=== PATIENT | female | born 1950 | race Caucasian/White ===

== ENCOUNTER 2023-11-24 10:08 | Inpatient (IN) | payer OTHER, SELFPAY ==
[2023-11-24] VITALS (9 sets, daily range): BP systolic 156–193; BP diastolic 41–80; PULSE 40–56; RESP 16–18; TEMP 36.8; O2SAT 96–100; BMI 38.5
--- NOTE | ~2023-11-24 | FL_ITS ---
EXAMINATION: XR FLUOROSCOPY WITH IMAGES CLINICAL INFORMATION: Pacemaker placement. COMPARISON: None available. TECHNIQUE: Fluoroscopy Supervised By: Dr. Rishabh Sheriff. Fluoroscopy Time: 9.7 minutes. Cumulative Dose: 146 mGy. DAP: 39.8 Gycm2. Images: 1. FINDINGS: Single image provided demonstrates a 2-lead right chest wall pacemaker with one lead in the right atria, the other at the right ventricular apex. The generator pack is not included. FL/FL guidance in OR IMPRESSION: Fluoroscopy and spot films as described above. Please see Dr. Rishabh Sheriff's procedure note for full details.
--- NOTE | ~2023-11-24 | XR_ITS ---
EXAMINATION: XR CHEST CLINICAL INFORMATION: Post pacemaker placement COMPARISON: 11/24/2023 TECHNIQUE: Frontal view of the chest was obtained. FINDINGS: Since the prior study a right chest wall pacemaker has been placed with a single lead in the right atria and another lead at the right ventricular apex. No pneumothorax. Mild cardiomegaly. No CHF or consolidations. There is some unchanged atelectasis seen in the posterior basal segment of the left lower lobe. XR/XR chest 1V IMPRESSION: No acute intrathoracic disease status post pacemaker placement. No pneumothorax.
--- NOTE | ~2023-11-24 | XR_ITS ---
EXAMINATION: XR CHEST CLINICAL INFORMATION: Pacemaker placement COMPARISON: Chest radiograph from 11/26/2023 TECHNIQUE: Frontal view of the chest was obtained. FINDINGS: Right-sided dual-lead pacer terminating in the right atrium and ventricle. Bilateral low lung volumes. Accentuation of pulmonary vasculature. Right basilar atelectasis. No pneumothorax. Trachea is midline. Cardiac mediastinal silhouette is stable. Aorta demonstrates atherosclerotic calcifications. No large pleural effusion. Osseous structures are intact. Soft tissues are unremarkable. XR/XR chest 1V IMPRESSION: 1. Right-sided dual-lead pacer terminating in the right atrium and ventricle. 2. Bilateral low lung volumes. 3. Accentuation of pulmonary vasculature. 4. Right basilar atelectasis.
--- NOTE | ~2023-11-24 | XR_ITS ---
EXAMINATION: XR CHEST CLINICAL INFORMATION: Palpitations. COMPARISON: None available. TECHNIQUE: Frontal view of the chest was obtained. FINDINGS: The lungs are clear. The cardiomediastinal silhouette is normal in size. There is no pleural effusion or pneumothorax. No acute osseous abnormality. XR/XR chest 1V IMPRESSION: No acute cardiopulmonary findings.
[2023-11-24 10:56] LABS: Anion Gap 11 (12-20); Blood Urea Nitrogen 38 mg/dL (9-16); Calcium 11.6 mg/dL (8.4-10.2); Carbon Dioxide 26 mmol/L (22-29); Chloride 105 mmol/L (96-108); Creatinine Clr Calc Pharmacy 30.2; Estimated Glomerular Filt Rate 30; Glucose Random 72 mg/dL (60-115); Potassium 4.1 mmol/L (3.3-5.1); Sodium 138 mmol/L (135-145)
--- NOTE | 2023-11-24 11:21 | ED.ARRPALP ---
HPI - Arrhythmia/Palpitations General Chief Complaint: Arrhythmia/Palpitations Stated Complaint: Abnormal ekg Time Seen by Provider: 11/24/23 11:16 Source: patient and family Mode of arrival: ambulatory Limitations: no limitations History of Present Illness HPI narrative: 73 yo f hx of obesity, DM II, HTN, HLD, hypothyroidism presenting to the emergency department from PCP for abnormal EKG today. Patient reports she has not been feeling right. She reports she has been having bad palpitations. All day long. And dizziness in the am which improves after a while. She has also been having headaches and a/c sob that is worsened by exertion. Just dont feel like herself lately. PCP also concerned she may have hypercalcemia. Denies recent illness, cp, nausea, vomiting, abd pain, vision changes, weakness Related Data Allergies Allergy/AdvReac Type Severity Reaction Status Date / Time No Known Allergies Allergy Verified 11/24/23 10:53 Review of Systems Review of Systems: Yes all other systems are reviewed and are negative [facility] Past Medical History Attestation statement: The following information was validated with the patient. Source: old records reviewed and nursing notes reviewed Onset Date is defined in the Problem List Problems that require an onset date and time if occurred within 24 hrs of arrival to the ED Aortic Dissection and Rupture; Neurologic impairment; Cardiopulmonary Arrest; Endotracheal Intubation; Insertion or Replacement of Mechanical Circulatory Assist Device Social History Social History Advance Directives: No Advance Directives Information Provided: No Physical Exam Vital Signs: Vital Signs: Last Vital Signs Temp 98.2 F 11/24/23 10:45 Pulse 53 11/24/23 11:03 Resp 18 11/24/23 11:03 BP 156/80 H 11/24/23 11:03 Pulse Ox 99 11/24/23 11:03 O2 Del Method Room Air 11/24/23 11:03 BMI result Body Mass Index 38.5 bradycardia Appearance: Alert.? Oriented X3.? No acute distress.? Head: Normocephalic, atraumatic, no step-offs or deformities Eyes: Pupils equal, round and reactive to light.? CVS: Normal heart rate and rhythm.? Pulses normal.? Respiratory: No respiratory distress.? Breath sounds normal.? Abdomen: Soft and nontender.? Skin: Skin warm and dry.? Normal skin color.? Normal skin turgor.? Extremities: No lower extremity edema.? No calf ttp. 5/5 strength to bilateral upper and lower extremities Neuro: Oriented X 3.? No motor deficit.? No sensory deficit. CN 2-12 intact Course Reevaluation(s) Reevaluation #1: CBC unremarkable. Chemistry w/ jerome will gently hydrate. Calcium 11.6 and elevated. Fluids ordered. Trop 13.6 repeat pending, EKG non ischemic . Dimer negative. HR dipped down to 33 bpm cardiology aware. Patient does take metoprolol. Cardiology would like patient admitted overnight. No further recommendations. Plan hospital admisssion Time: 13:37 Medical Decision Making Medical Decision Making [facility] Narrative: 1208 73 year old female presents w/ abnormal EKG from PCP PE sinus bradycardia noted HR 44 Concerns for dysrhythmia versus PE. At this time this is stable bradycardia asymptomatic. Will continue to monitor. She does have pads on her. Will rule out metabolic derangements. Unlikely stroke, posterior stroke. Plan- labs, ekg, Differential Diagnosis Differential Diagnoses: The differential diagnosis associated with the presentation includes Concerns for dysrhythmia versus PE. At this time this is stable bradycardia asymptomatic. Will continue to monitor. She does have pads on her. Will rule out metabolic derangements. Unlikely stroke, posterior stroke. Admission/Observation Consideration of admission/observation: Escalation of care including admission/observation considered Likely Consult Healthcare Provider Management of the patient was discussed with: Candy Catcher (Cardiology ) Lab Data [facility] Lab Attestation statement: I reviewed the patient's lab results. 11/24/23 10:31 11/24/23 10:31 Labs: Lab Results 11/24/23 Range/Units 10:31 WBC 7.0 (4.8-10.8) X10*3/uL RBC 4.17 L (4.20-5.50) X10*6/uL Hgb 13.3 (12.0-16.0) g/dl Hct 40.9 (37.0-47.0) % MCV 98.1 H (80.0-98.0) fL MCH 31.9 (27.0-33.0) pg MCHC 32.5 (31.0-35.0) g/dl RDW 14.1 (11.0-16.0) % Plt Count 186 (160-400) X10*3/uL MPV 11.9 (9.4-12.3) fL Immature Gran % (Auto) 0.1 (0.0-0.4) % Neut % (Auto) 55.0 (45-73) % Lymph % (Auto) 28.8 (20-40) % [place] % (Auto) 10.5 (2-11) % Eos % (Auto) 4.9 H (0-4) % Baso % (Auto) 0.7 (0-2) % Lymph # (Auto) 2.0 (1.2-4.9) X10*3/uL [place] # (Auto) 0.7 (0.1-1.2) X10*3/uL Eos # (Auto) 0.3 (0.0-0.4) X10*3/uL Baso # (Auto) 0.1 (0.0-0.2) X10*3/uL Abs Immat Gran (auto) 0.01 (0.00-0.03) X10*3/uL Absolute Neuts (auto) 3.8 (2.0-8.3) x10*3/uL Absolute Nucleated RBC 0.000 (0.0-0.012) X10*3/uL Nucleated RBC % (auto) 0.0 (0.0-0.2) /100WBC PT 10.4 L (11.1-13.3) SEC INR 0.9 (0.9-1.1) APTT 29.9 (26.0-36.4) SEC D-Dimer High Sensitivty 202 NG/ML Sodium 138 (135-145) mmol/L Potassium 4.1 (3.3-5.1) mmol/L Chloride 105 (96-108) mmol/L Carbon Dioxide 26 (22-29) mmol/L Anion Gap 11 L (12-20) BUN 38 H (9-16) mg/dL Creatinine 1.67 H (0.5-1.4) mg/dL Estim Creat Clear Calc 30.2 Estimated GFR 30 Random Glucose 72 (60-115) mg/dL Calcium 11.6 H (8.4-10.2) mg/dL Troponin I High Sens 13.6 (<3.5-17.0) ng/L Independent Interpretation I performed an independent interpretation of an: EKG (EKG w. sinus bradycardia w/ marked sinnus arruthmia and RBBB) and Plain X-Ray Radiology Impression Discussion of test interpretation with radiology: I have reviewed the radiologist's reading. Chronic Conditions Patient?s care impacted by: Diabetes and Other (HLD) Critical Care Time Critical Care Time Critical Care Time: Yes Total Critical Care Time: 45 Attestation: I attest to this time spent taking care of the patient, obtaining history, physical, reviewing labs, imaging, speaking to my attending, speaking to specialist. Discharge Plan Discharge Clinical Impression: Bradycardia, Palpitations, Dizziness Patient Disposition: Admitted As Inpatient
--- NOTE | 2023-11-24 14:13 | PHA.MEDREC ---
Pharmacy Consult ? Medication Reconciliation Pharmacy has completed the medication reconciliation. spoke with patient to confirm medications. She reports still using humalog despite last fill in 12/2022 per claim history. She also reports a decrease in torsemide to 10mg.
--- NOTE | 2023-11-24 15:09 | P.DS_ITS ---
DS: Providers Provider Date of admission: 11/24/23 15:04 Primary care physician: Sarah Beth Sanford MD Consults: 11/24/23 15:05 Consult to Cardiology Routine Consulting Provider: [facility] Reason for consultation: bradycardia Physical Exam Vital Signs: Vital Signs: Last Vital Signs Temp 98.2 F 11/24/23 10:45 Pulse 44 L 11/24/23 13:45 Resp 18 11/24/23 13:45 BP 179/41 H 11/24/23 13:45 Pulse Ox 100 11/24/23 13:45 O2 Del Method Room Air 11/24/23 13:45 BMI result Body Mass Index 38.5 DS: Data Data Completed and Pending Labs on day of discharge: Laboratory Results - last 24 hr 11/24/23 11/24/23 10:31 13:44 WBC 7.0 RBC 4.17 L Hgb 13.3 Hct 40.9 MCV 98.1 H MCH 31.9 MCHC 32.5 RDW 14.1 Plt Count 186 MPV 11.9 Immature Gran % (Auto) 0.1 Neut % (Auto) 55.0 Lymph % (Auto) 28.8 [place] % (Auto) 10.5 Eos % (Auto) 4.9 H Baso % (Auto) 0.7 Lymph # (Auto) 2.0 [place] # (Auto) 0.7 Eos # (Auto) 0.3 Baso # (Auto) 0.1 Abs Immat Gran (auto) 0.01 Absolute Neuts (auto) 3.8 Absolute Nucleated RBC 0.000 Nucleated RBC % (auto) 0.0 PT 10.4 L INR 0.9 APTT 29.9 D-Dimer High Sensitivty 202 Sodium 138 Potassium 4.1 Chloride 105 Carbon Dioxide 26 Anion Gap 11 L BUN 38 H Creatinine 1.67 H Estim Creat Clear Calc 30.2 Estimated GFR 30 POC Glucose 82 Random Glucose 72 Calcium 11.6 H Troponin I High Sens 13.6 Discharge Plan Discharge Referrals: Sarah Beth Sanford MD [Primary Care Provider] - 1 Week Discharge Medications: No Action atorvastatin 80 mg tablet 80 mg PO DAILY metoprolol succinate 100 mg tablet extended release 24 hr 100 mg PO DAILY torsemide 10 mg tablet 10 mg PO DAILY acetaminophen 500 mg tablet 500 mg PO TID PRN (Reason: fever) levothyroxine 88 mcg tablet 88 mcg PO DAILY@0600 amlodipine 10 mg tablet 10 mg PO DAILY insulin lispro [Humalog KwikPen Insulin] 100 unit/mL insulin pen 8 unit subcut TIDWM insulin glargine [Lantus Solostar U-100 Insulin] 100 unit/mL (3 mL) insulin pen 30 unit subcut BEDTIME Jardiance 25 mg tablet 25 mg PO DAILY
--- NOTE | 2023-11-24 15:20 | P.HPHOSP_ITS ---
History of Present Illness Date of Service: 11/24/23 Chief Complaint: dizziness 73-year-old woman presented to the ER with complaints of worsening dizziness, heart palpitations that have been present over the last couple weeks, waxing and waning. She denied chest pain, shortness breath, nausea, vomiting, diarrhea , recent illness. She reported have a worsening palpitations and headache today. she reports being on metoprolol for over a year for her blood pressure. In the ER, labs within acceptable limits, creatinine 1.67 with history of chronic kidney disease, elevated blood pressure readings highest 193/58, heart rate down to the 30s on metoprolol at home. EKG shows sinus bradycardia with marked arrhythmia. Patient given IV fluids in the ER. Placed on observation for further management and treatment of bradycardia Review of Systems 2 Review of Systems: Denies any recent fever chills or decrease in appetite respiratory denies any shortness of breath or cough cardiovascular see HPI gastrointestinal denies any dysphagia abdominal pain nausea vomiting or diarrhea genitourinary denies any dysuria frequency or hematuria musculoskeletal denies any joint pain or swelling neuropsych denies any weakness or seizures all other systems reviewed are negative [facility] Medical History (Updated 11/24/23 @ 15:24 by Chantel Sarah NP) Tricuspid regurgitation GERD (gastroesophageal reflux disease) Depression with anxiety Diverticulosis Obesity Nephropathy Neuropathy Retinopathy Iron deficiency anemia Hypercalcemia Hypothyroidism CKD stage G3b/A3, GFR 30-44 and albumin creatinine ratio >300 mg/g Breast cancer Basal cell carcinoma Hypertension Hyperlipidemia Diabetes mellitus type 2 in obese Family History (Updated 11/24/23 @ 16:47 by Chantel Sarah NP) Mother Esophageal cancer Family/Other No problems noted. Father Lung cancer Surgical History (Updated 11/24/23 @ 15:24 by Chantel Sarah NP) H/O lumpectomy Social History Patient Tobacco Use Status: Never used Tobacco Smoked in Last 30 Days: No Use of substances other than those prescribed or required for medical reasons: No Advance Directives: No Advance Directives Information Provided: No Nutrition Risks: No Nutritional Risk Meds Allergies Allergy/AdvReac Type Severity Reaction Status Date / Time No Known Allergies Allergy Verified 11/24/23 10:53 Active Medications: Current Medications Acetaminophen (Acetaminophen 325 Mg Tablet) 650 mg PO Q6H PRN PRN Reason: Pain, Mild (Pain Scale 1-3) Amlodipine Besylate (Amlodipine Besylate 10 Mg Tablet) 10 mg PO DAILY [facility]; Protocol Atorvastatin Calcium (Atorvastatin Calcium 80 Mg Tablet) 80 mg PO DAILY [facility] Atropine Sulfate (Atropine Sulfate 1 Mg/10 Ml Syringe) 0.5 mg IVPUSH ONCE PRN PRN Reason: heart rate <20 Empagliflozin (Empagliflozin 25 Mg Tablet) 25 mg PO DAILY [facility] Heparin Sodium (Porcine) (Heparin Sodium,Porcine 5,000 Unit/Ml Vial) 5,000 unit SUBCUT Q12H [facility] Insulin Glargine (Insulin Glargine,Hum.Rec.Anlog 100 Unit/Ml 10 Ml Vial) 30 unit SUBCUT BEDTIME ANAIS Levothyroxine Sodium (Levothyroxine Sodium 88 Mcg Tablet) 88 mcg PO DAILY@0600 [facility] Sodium Chloride (0.9 % Sodium Chloride Flush 3 Ml Syringe) 3 ml IVFLUSH QSHIFT ANAIS Torsemide (Torsemide 20 Mg Tablet) 10 mg PO DAILY [facility]; Protocol Home Medications Medication Instructions Recorded Confirmed Last Taken Type acetaminophen 500 mg tablet 500 mg PO TID PRN fever 11/24/23 11/24/23 Unknown History amlodipine 10 mg tablet 10 mg PO DAILY 11/24/23 11/24/23 Unknown History atorvastatin 80 mg tablet 80 mg PO DAILY 11/24/23 11/24/23 Unknown History empagliflozin 25 mg tablet 25 mg PO DAILY 11/24/23 11/24/23 Unknown History (Jardiance) insulin glargine 100 unit/mL (3 30 unit subcut BEDTIME 11/24/23 11/24/23 Unknown History mL) subcutaneous pen (Lantus Solostar U-100 Insulin) insulin lispro 100 unit/mL 8 unit subcut TIDWM 11/24/23 11/24/23 Unknown History subcutaneous pen (Humalog KwikPen (U-100) Insulin) levothyroxine 88 mcg tablet 88 mcg PO DAILY@0600 11/24/23 11/24/23 Unknown History metoprolol succinate 100 mg 100 mg PO DAILY 11/24/23 11/24/23 Unknown History tablet,extended release 24 hr torsemide 10 mg tablet 10 mg PO DAILY 11/24/23 11/24/23 Unknown History Physical Exam 2 Vital Signs and Narrative: Vital Signs: Last Vital Signs Temp 98.2 F 11/24/23 10:45 Pulse 44 L 11/24/23 13:45 Resp 18 11/24/23 13:45 BP 179/41 H 11/24/23 13:45 Pulse Ox 100 11/24/23 13:45 O2 Del Method Room Air 11/24/23 13:45 BMI result Body Mass Index 38.5 Appearing in no acute distress head is normocephalic atraumatic eyes pupils are PERRLA sclera is anicteric mouth throat mucous membranes are intact and moist neck is supple no lymphadenopathy, no JVD noted lung sounds are clear to auscultation heart regular rate rhythm, clear S1, S2 positive bowel sounds, abdomen is soft, nontender neuro patient is alert x3, no focal deficits Results Labs 11/24/23 10:31 11/24/23 10:31 Labs: Laboratory Results - last 24 hr 11/24/23 11/24/23 10:31 13:44 MCV 98.1 H MCH 31.9 MCHC 32.5 RDW 14.1 Plt Count 186 MPV 11.9 Immature Gran % (Auto) 0.1 Neut % (Auto) 55.0 Lymph % (Auto) 28.8 [place] % (Auto) 10.5 Eos % (Auto) 4.9 H Baso % (Auto) 0.7 Lymph # (Auto) 2.0 [place] # (Auto) 0.7 Eos # (Auto) 0.3 Baso # (Auto) 0.1 Abs Immat Gran (auto) 0.01 Absolute Neuts (auto) 3.8 Absolute Nucleated RBC 0.000 Nucleated RBC % (auto) 0.0 PT 10.4 L INR 0.9 APTT 29.9 D-Dimer High Sensitivty 202 Anion Gap 11 L Estim Creat Clear Calc 30.2 Estimated GFR 30 POC Glucose 82 Random Glucose 72 Calcium 11.6 H Imaging Radiologist's Impressions: Impressions Chest X-Ray 11/24/23 14:14 IMPRESSION: No acute cardiopulmonary findings. Assessment and Plan (1) Dizziness: Status: Acute Plan 73-year-old woman admitted with palpitations and dizziness found to be bradycardic in the ER on metoprolol at home. Symptomatic Sinus bradycardia Possibly related to beta-teodora Stop metoprolol Pacer pads at bedside and atropine p.r.n. Cardiology consultation Monitor on telemetry Hypertension Elevated blood pressure readings Continue amlodipine Diabetes mellitus type 2 Sliding scale, ADA diet, Lantus CKD stage 3 baseline Hypercalcemia Baseline Hyperlipidemia Statin Hypothyroidism Continue levothyroxine DVT prophylaxis with heparin Full code Observation Quality Stroke Does the patient have a stroke diagnosis?: No VTE Prior VTE?: No VTE Risk Level:: Medical - moderate - high VTE Device Contraindication: Treatment Not Indicated VTE Drug Contraindication: N/A - Med Ordered
[2023-11-24 16:12] LABS: TSH reflex Free T4 0.24 uIU/mL (0.32-4.0)
--- NOTE | 2023-11-24 17:55 | PC.NURSE ---
assumed care of pt at 1500, pt remains sinus tori (40s-60s) - asymptomatic at this time, other vss. pt denies any pain. reports that she hasn't been able to urinate today - bladder scan showed 1108ml. pt had purewick in place. pt stated that she would be able to urinate on commode. urinated 880ml, with second urination after orthostatic vitals collected. 44ml remaining on post void bladder scan. pt pending bed assignment.
[2023-11-24] MEDS: Heparin Sodium,Porcine 5,000 UNIT/ML VIAL 5000 UNIT SUBCUT (18:06)
[2023-11-24 21:29] LABS: Glucose, Whole Blood 220 mg/dL (60-115)
[2023-11-24] MEDS: Insulin Glargine,Hum.rec.anlog 100 UNIT/ML 10 ML VIAL 30 UNIT SUBCUT (21:32)
--- NOTE | 2023-11-24 21:36 | PC.NURSE ---
pt medicated per JAN. resting quietly, HR remains 40s-60s pt denies any dizziness on standing.
[2023-11-25] VITALS (11 sets, daily range): BP systolic 155–189; BP diastolic 57–79; PULSE 46–69; RESP 14–20; TEMP 36.6–36.9; O2SAT 96–98
--- NOTE | 2023-11-25 02:29 | PC.NURSE ---
hospitalist messaged about HR as it decreases at rest/sleep to high 30 s- 40s . However when waking pt it remains in 50s
[2023-11-25] MEDS: Heparin Sodium,Porcine 5,000 UNIT/ML VIAL 5000 UNIT SUBCUT ×2 (05:48→18:11)
[2023-11-25] MEDS: Levothyroxine Sodium 88 MCG TABLET PO (05:48)
[2023-11-25 06:28] LABS: MANUAL DIFF FLAG NO
[2023-11-25 06:37] LABS: Basophils Absolute Auto 0.1 X10*3/uL (0.0-0.2); Basophils Percent Auto 0.8 % (0-2); Eosinophils Absolute Auto 0.3 X10*3/uL (0.0-0.4); Eosinophils Percent Auto 4.2 % (0-4); Hematocrit 40.3 % (37.0-47.0); Imm Gran Abs Auto 0.01 X10*3/uL (0.00-0.03); Imm Gran Pct Auto 0.2 % (0.0-0.4); Lymphocytes Absolute Auto 1.5 X10*3/uL (1.2-4.9); Lymphocytes Percent Auto 24.8 % (20-40); Mean Corpuscular HGB Conc 32.3 g/dl (31.0-35.0); Mean Corpuscular Hemoglobin 31.9 pg (27.0-33.0); Mean Corpuscular Volume 98.8 fL (80.0-98.0); Monocytes Absolute Auto 0.7 X10*3/uL (0.1-1.2); Neutrophils Absolute Auto 3.6 x10*3/uL (2.0-8.3); Platelet Count 170 X10*3/uL (160-400); Red Blood Count 4.08 X10*6/uL (4.20-5.50); Red Cell Distribution Width 13.8 % (11.0-16.0)
[2023-11-25 06:49] LABS: Alanine Aminotransferase 18 U/L (0-31); Albumin Level 3.4 g/dL (3.5-5.0); Alkaline Phosphatase 152 U/L (39-117); Anion Gap 13 (12-20); Aspartate Amino Transferase 23 U/L (5-31); Bilirubin Total 0.6 mg/dL (0.0-1.0); Blood Urea Nitrogen 38 mg/dL (9-16); Carbon Dioxide 26 mmol/L (22-29); Chloride 111 mmol/L (96-108); Creatinine Clr Calc Pharmacy 33.2; Estimated Glomerular Filt Rate 33; Glucose Random 99 mg/dL (60-115); Potassium 4.3 mmol/L (3.3-5.1); Sodium 146 mmol/L (135-145); Total Protein 7.6 g/dL (6.5-8.0)
--- NOTE | 2023-11-25 07:41 | PC.NURSE ---
patient a&ox3, pacer pads intact, patient monitor intact- pt tori 40s-50s, pt denies sob/dizziness, cardiac consult to be done today, lungs clear throughout, breakfast given, call obando within reach, will continue to monitor
[2023-11-25] MEDS: Atorvastatin Calcium 80 MG TABLET PO (08:53)
[2023-11-25] MEDS: Torsemide 20 MG TABLET 10 MG PO (08:53)
[2023-11-25] MEDS: amLODIPine Besylate 10 MG TABLET PO (08:54)
[2023-11-25] MEDS: Empagliflozin 25 MG TABLET PO (08:54)
--- NOTE | 2023-11-25 09:03 | PC.NURSE ---
pt medicated per order
--- NOTE | 2023-11-25 11:15 | MHC.CM.PN ---
Rupa 11/25/23, Pt lives alone, she used to have [employer] services, but moved to [place] and it was too far for her [employer] to travel. She does not have [facility] services or been to [facility]. HCP is her daughter, [place], CRISSY assisted with her completing form and put in in chart. PCP confirmed> Adlakha Sarah Beth. Family to transport home upon DC. CM to follow and assist as needed with DC planning.
--- NOTE | 2023-11-25 11:51 | P.PNIM_ITS ---
Subjective Subjective Date of Service: 11/25/23 Interval History: Resting comfortably denies chest pain, no palpitations, denies shortness of breath, no lightheadedness, no dizziness, no headache, tolerating diet, noted to have elevated blood pressures heart rate between 40-50. Review of Systems All other system reviewed and negative. Physical Exam 2 Vital Signs: Vital Signs: Last Vital Signs Temp 98.5 F 11/25/23 09:05 Pulse 69 11/25/23 09:05 Resp 14 11/25/23 09:05 BP 184/72 H 11/25/23 09:05 Pulse Ox 97 11/25/23 09:05 O2 Del Method Room Air 11/25/23 09:05 BMI result Body Mass Index 38.5 Const: Other: General awake alert, resting comfortably in no acute distress. Neck supple no JVD. CVS regular rate rhythm, Respiratory lungs clear to auscultation, no respiratory distress, no wheeze, no rhonchi. Gastrointestinal abdomen soft, nontender, bowel sounds audible, no guarding , no rigidity. Extremities no edema. Neuro nonfocal Skin no rash Objective Data Active Medications Acetaminophen (Acetaminophen 325 Mg Tablet) 650 mg PO Q6H PRN PRN Reason: Pain, Mild (Pain Scale 1-3) Amlodipine Besylate (Amlodipine Besylate 10 Mg Tablet) 10 mg PO DAILY [facility]; Protocol Last Admin: 11/25/23 08:54 Dose: 10 mg Documented By: GEOVANNA Atorvastatin Calcium (Atorvastatin Calcium 80 Mg Tablet) 80 mg PO DAILY [facility] Last Admin: 11/25/23 08:53 Dose: 80 mg Documented By: GEOVANNA Atropine Sulfate (Atropine Sulfate 1 Mg/10 Ml Syringe) 0.5 mg IVPUSH ONCE PRN PRN Reason: heart rate <20 Empagliflozin (Empagliflozin 25 Mg Tablet) 25 mg PO DAILY [facility] Last Admin: 11/25/23 08:54 Dose: 25 mg Documented By: GEOVANNA Heparin Sodium (Porcine) (Heparin Sodium,Porcine 5,000 Unit/Ml Vial) 5,000 unit SUBCUT Q12H [facility] Last Admin: 11/25/23 05:48 Dose: 5,000 unit Documented By: JUDY Insulin Glargine (Insulin Glargine,Hum.Rec.Anlog 100 Unit/Ml 10 Ml Vial) 30 unit SUBCUT BEDTIME [facility] Last Admin: 11/24/23 21:32 Dose: 30 unit Documented By: NEETA Levothyroxine Sodium (Levothyroxine Sodium 88 Mcg Tablet) 88 mcg PO DAILY@0600 [facility] Last Admin: 11/25/23 05:48 Dose: 88 mcg Documented By: JUDY Sodium Chloride (0.9 % Sodium Chloride Flush 3 Ml Syringe) 3 ml IVFLUSH QSHIFT [facility] Last Admin: 11/25/23 09:04 Dose: Not Given Documented By: GEOVANNA Non-Admin Reason: See Note Torsemide (Torsemide 20 Mg Tablet) 10 mg PO DAILY [facility]; Protocol Last Admin: 11/25/23 08:53 Dose: 10 mg Documented By: GEOVANNA Labs 11/25/23 05:45 11/25/23 05:45 Labs: Laboratory Results - last 24 hr 11/24/23 11/24/23 11/24/23 10:31 13:44 21:25 MCV MCH MCHC RDW Plt Count MPV Immature Gran % (Auto) Neut % (Auto) Lymph % (Auto) [place] % (Auto) Eos % (Auto) Baso % (Auto) Lymph # (Auto) [place] # (Auto) Eos # (Auto) Baso # (Auto) Abs Immat Gran (auto) Absolute Neuts (auto) Absolute Nucleated RBC Nucleated RBC % (auto) D-Dimer High Sensitivty 202 Anion Gap Estim Creat Clear Calc Estimated GFR POC Glucose 82 220 H Random Glucose Calcium Total Bilirubin AST ALT Alkaline Phosphatase Total Protein Albumin TSH 0.24 L Free T4 1.10 11/25/23 05:45 MCV 98.8 H MCH 31.9 MCHC 32.3 RDW 13.8 Plt Count 170 MPV 12.0 Immature Gran % (Auto) 0.2 Neut % (Auto) 59.0 Lymph % (Auto) 24.8 [place] % (Auto) 11.0 Eos % (Auto) 4.2 H Baso % (Auto) 0.8 Lymph # (Auto) 1.5 [place] # (Auto) 0.7 Eos # (Auto) 0.3 Baso # (Auto) 0.1 Abs Immat Gran (auto) 0.01 Absolute Neuts (auto) 3.6 Absolute Nucleated RBC 0.000 Nucleated RBC % (auto) 0.0 D-Dimer High Sensitivty Anion Gap 13 Estim Creat Clear Calc 33.2 Estimated GFR 33 POC Glucose Random Glucose 99 Calcium 12.0 H Total Bilirubin 0.6 AST 23 ALT 18 Alkaline Phosphatase 152 H Total Protein 7.6 Albumin 3.4 L TSH Free T4 Assessment and Plan (1) Dizziness: Status: Acute (2) Bradycardia: Status: Acute (3) Palpitations: Status: Acute Plan 73-year-old woman admitted with palpitations and dizziness found to be bradycardic in the ER on metoprolol at home. Symptomatic Sinus bradycardia Noted to have persistent bradycardia and frequent PVCs, beta-teodora on hold patient asymptomatic,Pacer pads at bedside and atropine p.r.n. continue telemetry Patient seen by Dr. Yeung recommend thoracic surgery consultation for pacemaker Hypertension Elevated blood pressure ,Continue amlodipine ,add hydralazine , follow BP Mild hypernatremia Na 146 ,hold demadex give ivf follow labs Diabetes mellitus type 2 stable BS, cont. Sliding scale, ADA diet, Lantus and Jardiance CKD stage 3 baseline Hypercalcemia Chronic up to 12 noted at [facility] record, being followed by Nephrology , likely hyperparathyroidism, recommend outpatient follow-up with Nephro will give ivf and follow Hyperlipidemia Continue Lipitor 80 mg Hypothyroidism Continue levothyroxine, check TSH DVT prophylaxis with heparin Full code Observation Quality Stroke Does the patient have a stroke diagnosis?: No VTE Prior VTE?: No VTE Risk Level:: Medical - moderate - high VTE Device Contraindication: Treatment Not Indicated VTE Drug Contraindication: N/A - Med Ordered
[2023-11-25] MEDS: Dextrose 5 % and 0.45 % NaCl 1,000 ML 100 ML IVCONT (12:44)
--- NOTE | 2023-11-25 12:47 | PC.NURSE ---
patient a&ox3, pt bus monitor intact ranging from 46-60s sinus tori with frequent pvcs. pt denies pain/discomfort, ivf started per order, Dr. Sheriff at bedside for surgical concent, call obando within reach will continue to monitor
--- NOTE | 2023-11-25 12:50 | PM.CNCAR ---
History of Present Illness History of Present Illness Date of Service: 11/25/23 Requesting physician: Shantal Bowser Chief complaint: bradycardia Narrative: I was consulted to see [place] cardiology consultation today for bradycardia and lightheadedness. History was obtained with help of electrotherapist. Patient came to the hospital with complaints of lightheadedness was noted to be bradycardia with heart rate in the 30s. EKG reviewed shows group sinus beating. This would suggest either sinus rhythm with sinus arrhythmia are more likely sinoatrial exit block. Patient at home on metoprolol and was felt that probably exacerbated by metoprolol therapy but was decided to be admitted. On admission she was noted to have elevated blood pressure as elevated creatinine which is a baseline. Overnight patient's metoprolol has been held and now she is complaining of symptoms of palpitations correlating with PVCs. Her PVC burden is quite frequent. Heart is still dipping into the upper 30s with occasional junctional escape noted while I was interviewing her. Patient denies any episodes of syncope. Has longstanding history of hypertension. She has been on amlodipine and metoprolol for blood pressure control. No prior cardiac history. Denies any history of coronary artery disease, congestive heart failure, tachyarrhythmias in the past. Patient does have history of chronic kidney disease, hypercalcemia, reported history of tricuspid regurgitation. Review of Systems Constitutional: Constitutional: Reports no additional constitutional complaints Eyes: Eyes: Reports no additional eye complaints Cardiovascular: Cardiovascular: Denies chest pain, Denies leg edema, Reports lightheadedness, Denies Loss of Consciousness, Reports palpitations and Denies dyspnea Respiratory: Respiratory: Denies no additional respiratory complaints and Denies dyspnea Gastrointestinal: Gastrointestinal: Reports no additional gastrointestinal complaints Genitourinary: Genitourinary: Reports no additional female genitourinary complaints Musculoskeletal: Musculoskeletal: Reports no additional musculoskeletal complaints Integumentary/Breasts: Skin/Breast: Reports system reviewed and no additional complaints, except as docu Psychiatric: Psychiatric: Reports no additional psychiatric complaints Endocrine: Endocrine: Reports palpitations PMFSH Past Medical History Medical History (Updated 11/25/23 @ 12:55 by Oneal Jennings MD) Tricuspid regurgitation GERD (gastroesophageal reflux disease) Depression with anxiety Diverticulosis Obesity Nephropathy Neuropathy Retinopathy Iron deficiency anemia Hypercalcemia Hypothyroidism CKD stage G3b/A3, GFR 30-44 and albumin creatinine ratio >300 mg/g Breast cancer Basal cell carcinoma Hypertension Hyperlipidemia Diabetes mellitus type 2 in obese Family History Family History (Updated 11/24/23 @ 16:47 by Chantel Sarah NP) Mother Esophageal cancer Family/Other No problems noted. Father Lung cancer Surgical History Surgical History (Updated 11/24/23 @ 15:24 by Chantel Sarah NP) H/O lumpectomy Social History Social History Patient Tobacco Use Status: Never used Tobacco Smoked in Last 30 Days: No Use of substances other than those prescribed or required for medical reasons: No Advance Directives: No Advance Directives Information Provided: No Nutrition Risks: No Nutritional Risk service: No Meds Allergies Allergy/AdvReac Type Severity Reaction Status Date / Time No Known Allergies Allergy Verified 11/24/23 10:53 Active Medications: Current Medications Acetaminophen (Acetaminophen 325 Mg Tablet) 650 mg PO Q6H PRN PRN Reason: Pain, Mild (Pain Scale 1-3) Amlodipine Besylate (Amlodipine Besylate 10 Mg Tablet) 10 mg PO DAILY [facility]; Protocol Last Admin: 11/25/23 08:54 Dose: 10 mg Atorvastatin Calcium (Atorvastatin Calcium 80 Mg Tablet) 80 mg PO DAILY [facility] Last Admin: 11/25/23 08:53 Dose: 80 mg Atropine Sulfate (Atropine Sulfate 1 Mg/10 Ml Syringe) 0.5 mg IVPUSH ONCE PRN PRN Reason: heart rate <20 Empagliflozin (Empagliflozin 25 Mg Tablet) 25 mg PO DAILY [facility] Last Admin: 11/25/23 08:54 Dose: 25 mg Heparin Sodium (Porcine) (Heparin Sodium,Porcine 5,000 Unit/Ml Vial) 5,000 unit SUBCUT Q12H [facility] Last Admin: 11/25/23 05:48 Dose: 5,000 unit Hydralazine HCl (Hydralazine Hcl 25 Mg Tablet) 25 mg PO TID [facility]; Protocol Dextrose/Sodium Chloride (D51/2ns) 1,000 mls @ 100 mls/hr IVCONT .Q10H [facility] Stop: 11/25/23 21:59 Last Admin: 11/25/23 12:44 Dose: 100 mls/hr Insulin Glargine (Insulin Glargine,Hum.Rec.Anlog 100 Unit/Ml 10 Ml Vial) 30 unit SUBCUT BEDTIME [facility] Last Admin: 11/24/23 21:32 Dose: 30 unit Levothyroxine Sodium (Levothyroxine Sodium 88 Mcg Tablet) 88 mcg PO DAILY@0600 [facility] Last Admin: 11/25/23 05:48 Dose: 88 mcg Sodium Chloride (0.9 % Sodium Chloride Flush 3 Ml Syringe) 3 ml IVFLUSH QSHIFT [facility] Last Admin: 11/25/23 09:04 Dose: Not Given Torsemide (Torsemide 20 Mg Tablet) 10 mg PO DAILY [facility]; Protocol Last Admin: 11/25/23 08:53 Dose: 10 mg Home Medications Medication Instructions Recorded Confirmed Last Taken Type acetaminophen 500 mg tablet 500 mg PO TID PRN fever 11/24/23 11/24/23 Unknown History amlodipine 10 mg tablet 10 mg PO DAILY 11/24/23 11/24/23 Unknown History atorvastatin 80 mg tablet 80 mg PO DAILY 11/24/23 11/24/23 Unknown History empagliflozin 25 mg tablet 25 mg PO DAILY 11/24/23 11/24/23 Unknown History (Jardiance) insulin glargine 100 unit/mL (3 30 unit subcut BEDTIME 11/24/23 11/24/23 Unknown History mL) subcutaneous pen (Lantus Solostar U-100 Insulin) insulin lispro 100 unit/mL 8 unit subcut TIDWM 11/24/23 11/24/23 Unknown History subcutaneous pen (Humalog KwikPen (U-100) Insulin) levothyroxine 88 mcg tablet 88 mcg PO DAILY@0600 11/24/23 11/24/23 Unknown History metoprolol succinate 100 mg 100 mg PO DAILY 11/24/23 11/24/23 Unknown History tablet,extended release 24 hr torsemide 10 mg tablet 10 mg PO DAILY 11/24/23 11/24/23 Unknown History Physical Exam Vital Signs: Vital Signs: Last Vital Signs Temp 98.5 F 11/25/23 09:05 Pulse 69 11/25/23 09:05 Resp 14 11/25/23 09:05 BP 184/72 H 11/25/23 09:05 Pulse Ox 97 11/25/23 09:05 O2 Del Method Room Air 11/25/23 09:05 BMI result Body Mass Index 38.5 Const: General: cooperative, comfortable, no acute distress and alert Nutritional Appearance: obese Orientation/consciousness: patient oriented x3 Limitations: no limitations HEENT: Head: Yes normocephalic and Yes atraumatic Neck: Neck: Yes trachea midline, Yes supple and Yes no JVD Resp: Effort & Inspection: normal respiratory effort Auscultation: clear to auscultation bilaterally Cardio: Jugular venous distension: no JVD Palpation: normal PMI Rate: bradycardic Rhythm: abnormal rhythm with ectopic beats Heart sounds: S1 normal heart sound present, S2 normal heart sound present, no click, no gallops and no murmurs GI: Auscultation: normal bowel sounds Skin: General skin exam: no rashes or lesions noted Neuro: General: patient oriented x3 and no focal motor deficits Extrem: General: Yes no clubbing, cyanosis or edema Psych: Appearance: grossly normal Objective Labs and Meds 11/25/23 05:45 11/25/23 05:45 Lab results: Laboratory Results - last 24 hr 11/24/23 11/24/23 11/24/23 10:31 13:44 18:37 WBC RBC Hgb Hct MCV MCH MCHC RDW Plt Count MPV Immature Gran % (Auto) Neut % (Auto) Lymph % (Auto) [place] % (Auto) Eos % (Auto) Baso % (Auto) Lymph # (Auto) [place] # (Auto) Eos # (Auto) Baso # (Auto) Abs Immat Gran (auto) Absolute Neuts (auto) Absolute Nucleated RBC Nucleated RBC % (auto) D-Dimer High Sensitivty 202 Sodium Potassium Chloride Carbon Dioxide Anion Gap BUN Creatinine Estim Creat Clear Calc Estimated GFR POC Glucose 82 Random Glucose Calcium Total Bilirubin AST ALT Alkaline Phosphatase Troponin I High Sens 14.0 Total Protein Albumin TSH 0.24 L Free T4 1.10 11/24/23 11/25/23 21:25 05:45 WBC 6.0 RBC 4.08 L Hgb 13.0 Hct 40.3 MCV 98.8 H MCH 31.9 MCHC 32.3 RDW 13.8 Plt Count 170 MPV 12.0 Immature Gran % (Auto) 0.2 Neut % (Auto) 59.0 Lymph % (Auto) 24.8 [place] % (Auto) 11.0 Eos % (Auto) 4.2 H Baso % (Auto) 0.8 Lymph # (Auto) 1.5 [place] # (Auto) 0.7 Eos # (Auto) 0.3 Baso # (Auto) 0.1 Abs Immat Gran (auto) 0.01 Absolute Neuts (auto) 3.6 Absolute Nucleated RBC 0.000 Nucleated RBC % (auto) 0.0 D-Dimer High Sensitivty Sodium 146 H Potassium 4.3 Chloride 111 H Carbon Dioxide 26 Anion Gap 13 BUN 38 H Creatinine 1.52 H Estim Creat Clear Calc 33.2 Estimated GFR 33 POC Glucose 220 H Random Glucose 99 Calcium 12.0 H Total Bilirubin 0.6 AST 23 ALT 18 Alkaline Phosphatase 152 H Troponin I High Sens Total Protein 7.6 Albumin 3.4 L TSH Free T4 EKG shows group sinus beating with pause suggestive of sinoatrial pao exit block possibly [facility] Radiologist's impression: Impressions Chest X-Ray 11/24/23 14:14 IMPRESSION: No acute cardiopulmonary findings. Assessment and Plan (1) Sick sinus syndrome: Status: Acute Patient present with symptoms of lightheadedness along with bradycardia on low-dose metoprolol therapy with findings probably suggestive of sick sinus syndrome with sinoatrial pao exit block. She since withdrawing metoprolol is starting to have increasing burden of PVCs which highly symptomatic. I think she requires beta-teodora therapy. For that reason I think she should undergo dual-chamber pacemaker placement given her evidence of sinoatrial node dysfunction and required for beta-teodora therapy. Discuss the procedure of pacemaker placement and associated risk. Please consult Dr. Sheriff from thoracic surgery for dual-chamber pacemaker. Patient understands agrees. Once pacemaker was placed and working adequately restart metoprolol therapy to suppress arrhythmias (2) Uncontrolled hypertension: Status: Acute Uncontrolled hypertension this elderly woman not control amlodipine therapy. Metoprolol is being held because of bradycardia and be resume once pacemaker is placed. Can switch to carvedilol labetalol therapy. Also start on valsartan therapy to better control blood pressure. Follow renal function closely given her baseline CKD. Will follow with her Procedures Date of Service Date of Service: 11/25/23
--- NOTE | 2023-11-25 12:55 | HO.THORCONS ---
History of Present Illness Consult details Consult date: 11/25/23 Narrative: thoracic consult for 73-year-old female with significant hemodynamically compromising bradycardia. Patient has been evaluated by Cardiology who recommends permanent pacemaker placement For patient's sick sinus syndrome.. Chart was reviewed patient evaluated. [facility] Past Medical History Medical History (Updated 11/25/23 @ 12:55 by Oneal Jennings MD) Tricuspid regurgitation GERD (gastroesophageal reflux disease) Depression with anxiety Diverticulosis Obesity Nephropathy Neuropathy Retinopathy Iron deficiency anemia Hypercalcemia Hypothyroidism CKD stage G3b/A3, GFR 30-44 and albumin creatinine ratio >300 mg/g Breast cancer Basal cell carcinoma Hypertension Hyperlipidemia Diabetes mellitus type 2 in obese Family History Family History (Updated 11/24/23 @ 16:47 by Chantel Sarah NP) Mother Esophageal cancer Family/Other No problems noted. Father Lung cancer Surgical History Surgical History (Updated 11/24/23 @ 15:24 by Chantel Sarah NP) H/O lumpectomy Social History Social History Patient Tobacco Use Status: Never used Tobacco Smoked in Last 30 Days: No Use of substances other than those prescribed or required for medical reasons: No Advance Directives: No Advance Directives Information Provided: No Nutrition Risks: No Nutritional Risk service: No Meds Allergies Allergy/AdvReac Type Severity Reaction Status Date / Time No Known Allergies Allergy Verified 11/24/23 10:53 Active Medications: Current Medications Acetaminophen (Acetaminophen 325 Mg Tablet) 650 mg PO Q6H PRN PRN Reason: Pain, Mild (Pain Scale 1-3) Amlodipine Besylate (Amlodipine Besylate 10 Mg Tablet) 10 mg PO DAILY [facility]; Protocol Last Admin: 11/25/23 08:54 Dose: 10 mg Atorvastatin Calcium (Atorvastatin Calcium 80 Mg Tablet) 80 mg PO DAILY [facility] Last Admin: 11/25/23 08:53 Dose: 80 mg Atropine Sulfate (Atropine Sulfate 1 Mg/10 Ml Syringe) 0.5 mg IVPUSH ONCE PRN PRN Reason: heart rate <20 Empagliflozin (Empagliflozin 25 Mg Tablet) 25 mg PO DAILY [facility] Last Admin: 11/25/23 08:54 Dose: 25 mg Heparin Sodium (Porcine) (Heparin Sodium,Porcine 5,000 Unit/Ml Vial) 5,000 unit SUBCUT Q12H [facility] Last Admin: 11/25/23 05:48 Dose: 5,000 unit Hydralazine HCl (Hydralazine Hcl 25 Mg Tablet) 25 mg PO TID [facility]; Protocol Dextrose/Sodium Chloride (D51/2ns) 1,000 mls @ 100 mls/hr IVCONT .Q10H [facility] Stop: 11/25/23 21:59 Last Admin: 11/25/23 12:44 Dose: 100 mls/hr Cefazolin Sodium/Dextrose (Ancef) 2 gm in 50 mls @ 100 mls/hr IV PREOP ONE Stop: 11/25/23 13:23 Insulin Glargine (Insulin Glargine,Hum.Rec.Anlog 100 Unit/Ml 10 Ml Vial) 30 unit SUBCUT BEDTIME [facility] Last Admin: 11/24/23 21:32 Dose: 30 unit Levothyroxine Sodium (Levothyroxine Sodium 88 Mcg Tablet) 88 mcg PO DAILY@0600 [facility] Last Admin: 11/25/23 05:48 Dose: 88 mcg Sodium Chloride (0.9 % Sodium Chloride Flush 3 Ml Syringe) 3 ml IVFLUSH QSHIFT [facility] Last Admin: 11/25/23 09:04 Dose: Not Given Torsemide (Torsemide 20 Mg Tablet) 10 mg PO DAILY [facility]; Protocol Last Admin: 11/25/23 08:53 Dose: 10 mg Home Medications Medication Instructions Recorded Confirmed Last Taken Type acetaminophen 500 mg tablet 500 mg PO TID PRN fever 11/24/23 11/24/23 Unknown History amlodipine 10 mg tablet 10 mg PO DAILY 11/24/23 11/24/23 Unknown History atorvastatin 80 mg tablet 80 mg PO DAILY 11/24/23 11/24/23 Unknown History empagliflozin 25 mg tablet 25 mg PO DAILY 11/24/23 11/24/23 Unknown History (Jardiance) insulin glargine 100 unit/mL (3 30 unit subcut BEDTIME 11/24/23 11/24/23 Unknown History mL) subcutaneous pen (Lantus Solostar U-100 Insulin) insulin lispro 100 unit/mL 8 unit subcut TIDWM 11/24/23 11/24/23 Unknown History subcutaneous pen (Humalog KwikPen (U-100) Insulin) levothyroxine 88 mcg tablet 88 mcg PO DAILY@0600 11/24/23 11/24/23 Unknown History metoprolol succinate 100 mg 100 mg PO DAILY 11/24/23 11/24/23 Unknown History tablet,extended release 24 hr torsemide 10 mg tablet 10 mg PO DAILY 11/24/23 11/24/23 Unknown History Physical Exam Vital Signs: Vital Signs: Last Vital Signs Temp 98.1 F 11/25/23 12:50 Pulse 56 11/25/23 12:50 Resp 16 11/25/23 12:50 BP 179/76 H 11/25/23 12:50 Pulse Ox 96 11/25/23 12:50 O2 Del Method Room Air 11/25/23 12:50 BMI result Body Mass Index 38.5 Chest: Other: Chest breath sounds bilaterally, significant bradycardia ranging from 30s to 50s. GI: Other: Abdomen soft, benign Results Labs 11/25/23 05:45 11/25/23 05:45 Labs: Abnormal lab results 11/24/23 11/24/23 11/25/23 Range/Units 10:31 21:25 05:45 RBC 4.08 L (4.20-5.50) X10*6/uL MCV 98.8 H (80.0-98.0) fL Eos % (Auto) 4.2 H (0-4) % Sodium 146 H (135-145) mmol/L Chloride 111 H (96-108) mmol/L BUN 38 H (9-16) mg/dL Creatinine 1.52 H (0.5-1.4) mg/dL POC Glucose 220 H (60-115) mg/dL Calcium 12.0 H (8.4-10.2) mg/dL Alkaline Phosphatase 152 H (39-117) U/L Albumin 3.4 L (3.5-5.0) g/dL TSH 0.24 L (0.32-4.0) uIU/mL Short CBC 11/25/23 Range/Units 05:45 WBC 6.0 (4.8-10.8) X10*3/uL Hgb 13.0 (12.0-16.0) g/dl Hct 40.3 (37.0-47.0) % Plt Count 170 (160-400) X10*3/uL BMP 11/25/23 05:45 Sodium 146 H Potassium 4.3 Chloride 111 H Carbon Dioxide 26 BUN 38 H Creatinine 1.52 H Calcium 12.0 H Liver Function 11/25/23 Range/Units 05:45 Total Bilirubin 0.6 (0.0-1.0) mg/dL AST 23 (5-31) U/L ALT 18 (0-31) U/L Alkaline Phosphatase 152 H (39-117) U/L Albumin 3.4 L (3.5-5.0) g/dL All other labs normal. Assessment and Plan (1) Bradycardia: Status: Acute (2) Palpitations: Status: Acute (3) Dizziness: Status: Acute (4) Sick sinus syndrome: Status: Acute Plan risks, benefits, alternatives of permanent pacemaker placement were discussed with the patient and by phone with her daughter which included but not limited to bleeding, infection, numbness, pain, scarring, pneumothorax, lead dislodgement and the patient and her daughter which both to proceed. Arrangements will be made for this. All questions answered. Procedures Date of Service Date of Service: 11/25/23
--- NOTE | 2023-11-25 13:00 | PC.NURSE ---
patient IVF started per order, Dr. Sheriff gave verbal order to hold patient NPO for surgery this afternoon, pt is aware she is not to have PO.
--- NOTE | 2023-11-25 14:41 | PC.NURSE ---
per dr goldberg, anesthesia felt it was best to wait for the patient to have surgery for tomm due to her eating breakfast before the decision was made to bring her to the OR today. pt will be allowed to eat dinner and will be held npo at midnight, pt is aware.
[2023-11-25] MEDS: hydrALAZINE HCl 25 MG TABLET PO ×2 (17:26→20:39)
[2023-11-25 18:28] LABS: Glucose, Whole Blood 169 mg/dL (60-115)
[2023-11-25 20:12] LABS: Glucose, Whole Blood 219 mg/dL (60-115)
[2023-11-25] MEDS: Insulin Glargine,Hum.rec.anlog 100 UNIT/ML 10 ML VIAL 30 UNIT SUBCUT (20:39)
[2023-11-25] MEDS: 0.9 % Sodium Chloride Flush 3 ML SYRINGE IVFLUSH (20:40)
[2023-11-26] VITALS (14 sets, daily range): BP systolic 101–188; BP diastolic 33–81; PULSE 58–76; RESP 16–20; TEMP 36.1–36.8; O2SAT 95–100
[2023-11-26 07:10] LABS: Anion Gap 14 (12-20); Blood Urea Nitrogen 33 mg/dL (9-16); Calcium 11.9 mg/dL (8.4-10.2); Carbon Dioxide 23 mmol/L (22-29); Chloride 110 mmol/L (96-108); Creatinine Clr Calc Pharmacy 38.8; Estimated Glomerular Filt Rate 40; Glucose Random 147 mg/dL (60-115); Potassium 4.1 mmol/L (3.3-5.1); Sodium 143 mmol/L (135-145)
[2023-11-26 07:16] LABS: Glucose, Whole Blood 159 mg/dL (60-115)
--- NOTE | 2023-11-26 07:25 | HO.ANESPROP2 ---
HPI - Anesthesia Eval Consult details Narrative: 73 yo F admitted with symptomatic bradycardia. [facility] Active Problems Active Problems: All Active Problems (Updated 11/25/23 @ 12:55 by Oneal Jennings MD) Uncontrolled hypertension (Acute) Sick sinus syndrome (Acute) Dizziness (Acute) Palpitations (Acute) Bradycardia (Acute) Past Medical History Medical History Tricuspid regurgitation GERD (gastroesophageal reflux disease) Depression with anxiety Diverticulosis Obesity Nephropathy Neuropathy Retinopathy Iron deficiency anemia Hypercalcemia Hypothyroidism CKD stage G3b/A3, GFR 30-44 and albumin creatinine ratio >300 mg/g Breast cancer Basal cell carcinoma Hypertension Hyperlipidemia Diabetes mellitus type 2 in obese Family History Family History (Updated 11/24/23 @ 16:47 by Chantel Sarah NP) Mother Esophageal cancer Family/Other No problems noted. Father Lung cancer Family history of problems with anesthesia: No Surgical History Surgical History (Updated 11/26/23 @ 07:20 by Drea Olsen RN) Hx of left cataract extraction H/O lumpectomy History of Problems with Anesthesia: No Social History Social History Household Members: Family Housing: Apartment Do you presently have visiting nurse or other home services: No Patient Tobacco Use Status: Never used Tobacco Smoked in Last 30 Days: No Patient Interested in Nicotine Replacement: No Patient Given Instructions on How to Stop Smoking: No Second Hand Smoke Exposure: No Use of substances other than those prescribed or required for medical reasons: No Currently Displaying Signs/Symptoms of Drug Intoxication Withdrawal: No Any prior treatment program specific to substance use: No Have you been hit, kicked, punched, or otherwise hurt by someone within the past year? If so, by whom?: No Do you feel safe in your current relationship?: No Current Relationship Is there a partner from a previous relationship who is making you feel unsafe now?: No Are you made to feel afraid or neglected: No Are you DNR?: No Advance Directives: No Advance Directives Information Provided: No Do you have thoughts of harming others: None Do you have a plan to hurt others: No Plan Recently lost weight without trying: No Eating poorly because of decreased appetite: No Nutrition Risks: No Nutritional Risk Patient : No : No Poor oral hygiene: No service: No Meds Allergies Allergy/AdvReac Type Severity Reaction Status Date / Time No Known Allergies Allergy Verified 11/24/23 10:53 Active Medications: Current Medications Acetaminophen (Acetaminophen 325 Mg Tablet) 650 mg PO Q6H PRN PRN Reason: Pain, Mild (Pain Scale 1-3) Amlodipine Besylate (Amlodipine Besylate 10 Mg Tablet) 10 mg PO DAILY [facility]; Protocol Last Admin: 11/25/23 08:54 Dose: 10 mg Atorvastatin Calcium (Atorvastatin Calcium 80 Mg Tablet) 80 mg PO DAILY [facility] Last Admin: 11/25/23 08:53 Dose: 80 mg Atropine Sulfate (Atropine Sulfate 1 Mg/10 Ml Syringe) 0.5 mg IVPUSH ONCE PRN PRN Reason: heart rate <20 Empagliflozin (Empagliflozin 25 Mg Tablet) 25 mg PO DAILY [facility] Last Admin: 11/25/23 08:54 Dose: 25 mg Heparin Sodium (Porcine) (Heparin Sodium,Porcine 5,000 Unit/Ml Vial) 5,000 unit SUBCUT Q12H [facility] Last Admin: 11/26/23 05:02 Dose: Not Given Hydralazine HCl (Hydralazine Hcl 25 Mg Tablet) 25 mg PO TID [facility]; Protocol Last Admin: 11/25/23 20:39 Dose: 25 mg Insulin Glargine (Insulin Glargine,Hum.Rec.Anlog 100 Unit/Ml 10 Ml Vial) 30 unit SUBCUT BEDTIME [facility] Last Admin: 11/25/23 20:39 Dose: 30 unit Levothyroxine Sodium (Levothyroxine Sodium 88 Mcg Tablet) 88 mcg PO DAILY@0600 [facility] Last Admin: 11/26/23 05:02 Dose: Not Given Sodium Chloride (0.9 % Sodium Chloride Flush 3 Ml Syringe) 3 ml IVFLUSH QSHIFT [facility] Last Admin: 11/25/23 20:40 Dose: 3 ml Torsemide (Torsemide 20 Mg Tablet) 10 mg PO DAILY [facility]; Protocol Last Admin: 11/25/23 08:53 Dose: 10 mg Home Medications Medication Instructions Recorded Confirmed Last Taken Type acetaminophen 500 mg tablet 500 mg PO TID PRN fever 11/24/23 11/24/23 Unknown History amlodipine 10 mg tablet 10 mg PO DAILY 11/24/23 11/24/23 Unknown History atorvastatin 80 mg tablet 80 mg PO DAILY 11/24/23 11/24/23 Unknown History empagliflozin 25 mg tablet 25 mg PO DAILY 11/24/23 11/24/23 Unknown History (Jardiance) insulin glargine 100 unit/mL (3 30 unit subcut BEDTIME 11/24/23 11/24/23 Unknown History mL) subcutaneous pen (Lantus Solostar U-100 Insulin) insulin lispro 100 unit/mL 8 unit subcut TIDWM 11/24/23 11/24/23 Unknown History subcutaneous pen (Humalog KwikPen (U-100) Insulin) levothyroxine 88 mcg tablet 88 mcg PO DAILY@0600 11/24/23 11/24/23 Unknown History metoprolol succinate 100 mg 100 mg PO DAILY 11/24/23 11/24/23 Unknown History tablet,extended release 24 hr torsemide 10 mg tablet 10 mg PO DAILY 11/24/23 11/24/23 Unknown History Exam Exam Date and Time: November 26, [id number] Height,Weight and Vital Signs: Height 5 ft 1 in Weight 92.533 kg Last Vital Signs Temp 97.6 F 11/26/23 06:55 Pulse 76 11/26/23 06:55 Resp 16 11/26/23 06:55 BP 183/69 H 11/26/23 06:55 Pulse Ox 95 11/26/23 06:55 O2 Del Method Room Air 11/26/23 06:55 Pertinent Lab Results Pertinent Lab Results: Laboratory Tests 11/24/23 11/24/23 11/24/23 10:31 13:44 18:37 WBC 7.0 RBC 4.17 L Hgb 13.3 Hct 40.9 MCV 98.1 H MCH 31.9 MCHC 32.5 RDW 14.1 Plt Count 186 MPV 11.9 Immature Gran % (Auto) 0.1 Neut % (Auto) 55.0 Lymph % (Auto) 28.8 Sabine % (Auto) 10.5 Eos % (Auto) 4.9 H Baso % (Auto) 0.7 Lymph # (Auto) 2.0 Sabine # (Auto) 0.7 Eos # (Auto) 0.3 Baso # (Auto) 0.1 Abs Immat Gran (auto) 0.01 Absolute Neuts (auto) 3.8 Absolute Nucleated RBC 0.000 Nucleated RBC % (auto) 0.0 PT 10.4 L INR 0.9 APTT 29.9 D-Dimer High Sensitivty 202 Sodium 138 Potassium 4.1 Chloride 105 Carbon Dioxide 26 Anion Gap 11 L BUN 38 H Creatinine 1.67 H Estim Creat Clear Calc 30.2 Estimated GFR 30 POC Glucose 82 Random Glucose 72 Calcium 11.6 H Total Bilirubin AST ALT Alkaline Phosphatase Troponin I High Sens 13.6 14.0 Total Protein Albumin TSH 0.24 L Free T4 1.10 11/24/23 11/25/23 11/25/23 21:25 05:45 18:25 WBC 6.0 RBC 4.08 L Hgb 13.0 Hct 40.3 MCV 98.8 H MCH 31.9 MCHC 32.3 RDW 13.8 Plt Count 170 MPV 12.0 Immature Gran % (Auto) 0.2 Neut % (Auto) 59.0 Lymph % (Auto) 24.8 Sabine % (Auto) 11.0 Eos % (Auto) 4.2 H Baso % (Auto) 0.8 Lymph # (Auto) 1.5 Sabine # (Auto) 0.7 Eos # (Auto) 0.3 Baso # (Auto) 0.1 Abs Immat Gran (auto) 0.01 Absolute Neuts (auto) 3.6 Absolute Nucleated RBC 0.000 Nucleated RBC % (auto) 0.0 PT INR APTT D-Dimer High Sensitivty Sodium 146 H Potassium 4.3 Chloride 111 H Carbon Dioxide 26 Anion Gap 13 BUN 38 H Creatinine 1.52 H Estim Creat Clear Calc 33.2 Estimated GFR 33 POC Glucose 220 H 169 H Random Glucose 99 Calcium 12.0 H Total Bilirubin 0.6 AST 23 ALT 18 Alkaline Phosphatase 152 H Troponin I High Sens Total Protein 7.6 Albumin 3.4 L TSH Free T4 11/25/23 11/26/23 11/26/23 20:09 06:34 07:10 WBC RBC Hgb Hct MCV MCH MCHC RDW Plt Count MPV Immature Gran % (Auto) Neut % (Auto) Lymph % (Auto) Sabine % (Auto) Eos % (Auto) Baso % (Auto) Lymph # (Auto) Sabine # (Auto) Eos # (Auto) Baso # (Auto) Abs Immat Gran (auto) Absolute Neuts (auto) Absolute Nucleated RBC Nucleated RBC % (auto) PT INR APTT D-Dimer High Sensitivty Sodium 143 Potassium 4.1 Chloride 110 H Carbon Dioxide 23 Anion Gap 14 BUN 33 H Creatinine 1.30 Estim Creat Clear Calc 38.8 Estimated GFR 40 POC Glucose 219 H 159 H Random Glucose 147 H Calcium 11.9 H Total Bilirubin AST ALT Alkaline Phosphatase Troponin I High Sens Total Protein Albumin TSH Free T4 Airway Mallampati Class: I TM Dist: <=3cm Neck ROM: Full Loose/Missing/Broken Teeth: Yes (multiple missing teeth) Heart: S1S2 Lungs: CTAB Assessment and Plan Assessment Anesthesia Assessment: Anesthesia Plan Discussed and Chart Reviewed Final Anesthetic Review Family History of Problems with Anesthesia: No History of Problems with Anesthesia: No NPO: Yes ASA Class: IV Final Preanesthetic Review: No Changes in Pt Med Stat, Meds/Allgs Chart Reviewed, Consent Obtained/Reviewed and Anes Risks/Benef Reviewed Patient Risk: High Procedure Risk: Intermediate Anesthetic Plan Anesthetic Plan: GA and Agree w/ Assess. and Plan Disposition: Standard PACU
--- NOTE | 2023-11-26 09:05 | W.PM.OPN ---
Operative Note Operative Note Date of Service: 11/26/23 Narrative: Preoperative diagnosis: [] sick sinus syndrome Postop diagnosis: [] same Procedure [] dual chamber permanent pacemaker placement with fluoroscopy Surgeon: [] Jaziel Secret Service Agent: [] Type of Anesthesia: [] general Indication for surgery: [] please refer to [facility] work sheet regarding sensing and capture data. Findings: [] Patient brought to the operating room, placed on operative table in supine position, after adequate level of general anesthesia was induced, patient's bilateral neck and chest areas were prepped and draped in usual sterile fashion. A shoulder roll was previously placed, and the patient was placed in Trendelenburg position and the right upper extremity was pulled inferiorly and uneventful cannulation of the right subclavian vein was performed. A wire was advanced level superior vena cava under fluoroscopic guidance. A pocket was fashioned using scalp and Bovie at the cannulation site. Dilating sheath was placed over the wire and advanced into the superior vena cava under fluoroscopic guidance, and the wire retained. Ventricular lead was advanced into the right ventricle with an area of good sensing and capture obtained. Lead was screwed in , retested and was also was within normal limits. Peel-away sheath was removed without incident. Next atrial dilating sheath was placed over the retained wire and the wire retrieved again under fluoroscopic guidance. Atrial lead was advanced again under fluoroscopic guidance with a position of good sensing and capture obtained and uneventful screw-in lead was deployed. This was again tested with good data. Each lead was secured to the pocket using 2 2-0 silk sutures. Leads were appropriately connected to the generator, secured, and generator placed in the pocket. Wound was irrigated, secured hemostasis, and closed using interrupted inverted dermal 3-0 Vicryl sutures followed by Steri-Strips sterile dressings. Wound was infiltrated 0.5% Marcaine/ 1% lidocaine. EBL minimal. Sponge, needle, instrument counts reported correct. Patient tolerated the procedure well and emerged anesthesia stable condition.
--- NOTE | 2023-11-26 10:16 | P.PNCA_ITS ---
Subjective Subjective Date of Service: 11/26/23 Principal diagnosis: Sick sinus syndrome, hypertension Interval history: Patient status post dual-chamber pacemaker. Blood pressure is better after anesthesia. Started on Cozaar yesterday. Review of Systems Review of Systems Yes all other systems are reviewed and are negative Constitutional: Reports no additional constitutional complaints Cardiovascular: Reports palpitations Respiratory: Reports no additional respiratory complaints Endocrine: Reports no additional endocrine complaints and Reports palpitations Allergic/Immunologic: Reports no additional allergic/immunologic complaints Physical Exam Vital Signs: Last Vital Signs Temp 97.2 F 11/26/23 10:02 Pulse 60 11/26/23 10:02 Resp 17 11/26/23 10:02 BP 134/37 L 11/26/23 10:02 Pulse Ox 98 11/26/23 10:02 O2 Del Method Room Air 11/26/23 10:02 O2 Flow Rate 6 11/26/23 09:20 BMI result Body Mass Index 38.5 Const General: cooperative, comfortable, no acute distress and alert Nutritional Appearance: obese Orientation/consciousness: patient oriented x3 Limitations: no limitations HEENT Head: Yes normocephalic and Yes atraumatic Neck Neck: Yes trachea midline, Yes supple and Yes no JVD Resp Effort & Inspection: normal respiratory effort Auscultation: clear to auscultation bilaterally Cardio Jugular venous distension: no JVD Palpation: normal PMI Rate: bradycardic Rhythm: abnormal rhythm with ectopic beats Heart sounds: S1 normal heart sound present, S2 normal heart sound present, no click, no gallops and no murmurs GI Auscultation: normal bowel sounds Skin General skin exam: no rashes or lesions noted Neuro General: patient oriented x3 and no focal motor deficits Extrem General: Yes no clubbing, cyanosis or edema Psych Appearance: grossly normal Objective Labs and Meds 11/25/23 05:45 11/26/23 06:34 Lab results: Laboratory Results - last 24 hr 11/25/23 11/25/23 11/26/23 18:25 20:09 06:34 Sodium 143 Potassium 4.1 Chloride 110 H Carbon Dioxide 23 Anion Gap 14 BUN 33 H Creatinine 1.30 Estim Creat Clear Calc 38.8 Estimated GFR 40 POC Glucose 169 H 219 H Random Glucose 147 H Calcium 11.9 H 11/26/23 07:10 Sodium Potassium Chloride Carbon Dioxide Anion Gap BUN Creatinine Estim Creat Clear Calc Estimated GFR POC Glucose 159 H Random Glucose Calcium Imaging Radiologist's impression: Impressions Chest X-Ray 11/26/23 09:20 IMPRESSION: No acute intrathoracic disease status post pacemaker placement. No pneumothorax. Progress Note: A&P Assessment and plan (1) Sick sinus syndrome: Status: Acute Assessment and Plan: Status post dual-chamber pacemaker. Will need 1 more day of admission. Follow- up chest x-ray tomorrow pacer check tomorrow. If everything is okay can be probably discharged home tomorrow. (2) Uncontrolled hypertension: Status: Acute Assessment and Plan: Uncontrolled hypertension till before the surgery. Blood pressure post surgery and with any sees as improved. Can start her on Coreg 6.25 mg b.i.d. for both blood pressure control as well as for her arrhythmias and symptomatic PVCs. Continue amlodipine and losartan. Will sign of the case and follow-up as outpatient. Time Spent With Patient Time: Total time managing care of this patient today ____ minutes. Progress Note: Quality Stroke Does the patient have a stroke diagnosis?: No Procedures Date of Service Date of Service: 11/26/23
[2023-11-26] MEDS: hydrALAZINE HCl 25 MG TABLET PO (10:35)
[2023-11-26] MEDS: Empagliflozin 25 MG TABLET PO (10:35)
[2023-11-26] MEDS: amLODIPine Besylate 10 MG TABLET PO (10:35)
[2023-11-26] MEDS: Losartan Potassium 50 MG TABLET PO (10:35)
[2023-11-26] MEDS: Atorvastatin Calcium 80 MG TABLET PO (10:35)
[2023-11-26] MEDS: Torsemide 20 MG TABLET 10 MG PO (10:35)
[2023-11-26] MEDS: 0.9 % Sodium Chloride Flush 3 ML SYRINGE IVFLUSH ×3 (10:36→20:53)
--- NOTE | 2023-11-26 15:48 | P.PNIM_ITS ---
Subjective Subjective Date of Service: 11/26/23 Interval History: Complaining of tiredness underwent pacemaker placement this morning, denies chest pain, no palpitations, no shortness of breath, denies lightheadedness, dizziness. Review of Systems All other system reviewed and negative. Physical Exam 2 Vital Signs: Vital Signs: Last Vital Signs Temp 96.9 F 11/26/23 15:09 Pulse 60 11/26/23 15:09 Resp 18 11/26/23 15:09 BP 134/63 11/26/23 15:09 Pulse Ox 95 11/26/23 15:09 O2 Del Method Room Air 11/26/23 15:09 O2 Flow Rate 6 11/26/23 09:20 BMI result Body Mass Index 38.5 Const: Other: General awake alert, resting comfortably in no acute distress. Neck supple no JVD. Right anterior chest wall pacemaker in place CVS regular rate rhythm, Respiratory lungs clear to auscultation, no respiratory distress, no wheeze, no rhonchi. Gastrointestinal abdomen soft, non tender, bowel sounds audible, no guarding , no rigidity. Extremities no edema. Neuro non focal Skin no rash Psych appropriate affect Objective Data Active Medications Acetaminophen (Acetaminophen 325 Mg Tablet) 650 mg PO Q6H PRN PRN Reason: Pain, Mild (Pain Scale 1-3) Amlodipine Besylate (Amlodipine Besylate 10 Mg Tablet) 10 mg PO DAILY [facility]; Protocol Last Admin: 11/26/23 10:35 Dose: 10 mg Documented By: SHALINI Atorvastatin Calcium (Atorvastatin Calcium 80 Mg Tablet) 80 mg PO DAILY [facility] Last Admin: 11/26/23 10:35 Dose: 80 mg Documented By: SHALINI Atropine Sulfate (Atropine Sulfate 1 Mg/10 Ml Syringe) 0.5 mg IVPUSH ONCE PRN PRN Reason: heart rate <20 Empagliflozin (Empagliflozin 25 Mg Tablet) 25 mg PO DAILY [facility] Last Admin: 11/26/23 10:35 Dose: 25 mg Documented By: SHALINI Fentanyl (Fentanyl Citrate/Pf 100 Mcg/2 Ml Vial) 25 mcg IVPUSH Q5M PRN; Protocol PRN Reason: Pain, Moderate(Pain Scale 4-6) Heparin Sodium (Porcine) (Heparin Sodium,Porcine 5,000 Unit/Ml Vial) 5,000 unit SUBCUT Q12H [facility] Last Admin: 11/26/23 05:02 Dose: Not Given Documented By: BRANDI Non-Admin Reason: surgical procedure scheduled Promethazine HCl 12.5 mg/ (Sodium Chloride) 50.5 mls @ 202 mls/hr IV ONCE PRN PRN Reason: Nausea and Vomiting Insulin Glargine (Insulin Glargine,Hum.Rec.Anlog 100 Unit/Ml 10 Ml Vial) 30 unit SUBCUT BEDTIME [facility] Last Admin: 11/25/23 20:39 Dose: 30 unit Documented By: FROY Levothyroxine Sodium (Levothyroxine Sodium 88 Mcg Tablet) 88 mcg PO DAILY@0600 [facility] Last Admin: 11/26/23 05:02 Dose: Not Given Documented By: BRANDI Non-Admin Reason: NPO Losartan Potassium (Losartan Potassium 50 Mg Tablet) 50 mg PO DAILY [facility]; Protocol Last Admin: 11/26/23 10:35 Dose: 50 mg Documented By: SHALINI Sodium Chloride (0.9 % Sodium Chloride Flush 3 Ml Syringe) 3 ml IVFLUSH QSHIFT [facility] Last Admin: 11/26/23 10:36 Dose: 3 ml Documented By: SHALINI Torsemide (Torsemide 20 Mg Tablet) 10 mg PO DAILY [facility]; Protocol Last Admin: 11/26/23 10:35 Dose: 10 mg Documented By: SHALINI Labs 11/25/23 05:45 11/26/23 06:34 Labs: Laboratory Results - last 24 hr 11/25/23 11/25/23 11/26/23 18:25 20:09 06:34 Anion Gap 14 Estim Creat Clear Calc 38.8 Estimated GFR 40 POC Glucose 169 H 219 H Random Glucose 147 H Calcium 11.9 H 11/26/23 07:10 Anion Gap Estim Creat Clear Calc Estimated GFR POC Glucose 159 H Random Glucose Calcium Assessment and Plan (1) Dizziness: Status: Acute (2) Bradycardia: Status: Acute (3) Palpitations: Status: Acute Plan 73-year-old woman admitted with palpitations and dizziness found to be bradycardic in the ER on metoprolol at home. Acute Symptomatic Sinus bradycardia Noted to have persistent bradycardia and frequent PVCs, despite holding beta- blockers, therefore pacemaker placed this morning by thoracic surgery for sick sinus syndrome Post pacemaker developed ventricular tachycardia, pacemaker interrogated and functioning fine continue telemetry Cardio recommends to use Coreg 12.5 b.i.d. will follow BP and pulse x 24 hr Hypertension Elevated blood pressure ,Continue amlodipine , Demadex 10 mg, added Cozaar 50 mg, follow BP Mild hypernatremia resolved with IV fluids Diabetes mellitus type 2 stable BS, cont. Sliding scale, ADA diet, Lantus and Jardiance CKD stage 3 baseline noted at [facility] record Hypercalcemia Chronic up to 12 noted at [facility] record, being followed by Nephrology , likely hyperparathyroidism, recommend outpatient follow-up with Nephro Hyperlipidemia Continue Lipitor 80 mg Hypothyroidism tsh 0.24 ,Continue levothyroxine, will check serum free T4 DVT prophylaxis with heparin Full code Patient need inpatient hospitalization for sick sinus syndrome status post pacemaker need tele monitoring post pacemaker placement and medication adjustment. Quality Stroke Does the patient have a stroke diagnosis?: No VTE Prior VTE?: No VTE Risk Level:: Medical - moderate - high VTE Device Contraindication: Treatment Not Indicated VTE Drug Contraindication: N/A - Med Ordered
--- NOTE | 2023-11-26 17:11 | PC.NURSE ---
Assumed care of patient at this time.
[2023-11-26] MEDS: Heparin Sodium,Porcine 5,000 UNIT/ML VIAL 5000 UNIT SUBCUT (17:35)
[2023-11-26] MEDS: Acetaminophen 325 MG TABLET 650 MG PO (17:38)
[2023-11-26 20:11] LABS: Glucose, Whole Blood 516 mg/dL (60-115)
[2023-11-26] MEDS: Insulin Glargine,Hum.rec.anlog 100 UNIT/ML 10 ML VIAL 30 UNIT SUBCUT (20:53)
[2023-11-26] MEDS: Insulin Lispro 100 UNIT/ML 3 ML VIAL SUBCUT (20:53)
[2023-11-26] MEDS: 0.9 % Sodium Chloride 500 ML IV (20:54)
[2023-11-26 23:00] LABS: Glucose, Whole Blood 470 mg/dL (60-115)
[2023-11-27 03:05] VITALS: BP 133/59; PULSE 84; RESP 20; TEMP 37; O2SAT 94
[2023-11-27] MEDS: Levothyroxine Sodium 88 MCG TABLET PO (05:21)
[2023-11-27] MEDS: Heparin Sodium,Porcine 5,000 UNIT/ML VIAL 5000 UNIT SUBCUT (05:21)
--- NOTE | 2023-11-27 06:46 | HO.POSTANES ---
Post Anesthesia Evaluation Post Anesthesia Evaluation Date of Service: 11/27/23 Vital Signs: Vital Signs Temp Pulse Resp BP Pulse Ox O2 Del Method 11/27/23 03:05 98.6 F 84 20 133/59 L 94 Room Air 11/26/23 23:56 98.2 F 71 20 157/70 H 97 Room Air 11/26/23 19:11 98.2 F 71 20 157/70 H 97 Room Air Anesthesia: General Mental Status: Awake Pain Control: Satisfactory Nausea/Vomiting: None Hydration: Adequate Anesthesia-Related Issues: No Anes. Related Issues
[2023-11-27 07:28] VITALS: O2SAT 98
[2023-11-27 07:41] LABS: Anion Gap 12 (12-20); Blood Urea Nitrogen 38 mg/dL (9-16); Calcium 11.9 mg/dL (8.4-10.2); Carbon Dioxide 25 mmol/L (22-29); Chloride 106 mmol/L (96-108); Creatinine Clr Calc Pharmacy 31.1; Estimated Glomerular Filt Rate 31; Glucose Random 277 mg/dL (60-115); Potassium 4.6 mmol/L (3.3-5.1); Sodium 138 mmol/L (135-145)
[2023-11-27 07:56] VITALS: BP 177/82; PULSE 73; RESP 18; TEMP 36.8; O2SAT 98
[2023-11-27 07:56] LABS: Glucose, Whole Blood 239 mg/dL (60-115)
[2023-11-27 07:57] LABS: Free T4 (Free Thyroxine) 1.21 ng/dL (0.71-1.85)
[2023-11-27] MEDS: Insulin Lispro 100 UNIT/ML 3 ML VIAL SUBCUT (08:12)
[2023-11-27] MEDS: Torsemide 20 MG TABLET 10 MG PO (08:12)
[2023-11-27] MEDS: Empagliflozin 25 MG TABLET PO (08:13)
[2023-11-27] MEDS: Losartan Potassium 50 MG TABLET PO (08:13)
[2023-11-27] MEDS: Atorvastatin Calcium 80 MG TABLET PO (08:13)
[2023-11-27] MEDS: amLODIPine Besylate 10 MG TABLET PO (08:13)
[2023-11-27] MEDS: 0.9 % Sodium Chloride Flush 3 ML SYRINGE IVFLUSH (08:14)
--- NOTE | 2023-11-27 09:41 | P.DS_ITS ---
DS: Providers Provider Date of Service: 11/27/23 Date of admission: 11/25/23 14:44 Primary care physician: Sarah Beth Sanford MD Consults: 11/24/23 15:05 Consult to Cardiology Routine Consulting Provider: [facility] [facility] Reason for consultation: bradycardia 11/25/23 12:05 Consult to Thoracic Surgery Routine Consulting Provider: Rishabh Sheriff Reason for consultation: pacemaker placement Has provider been notified: No DS: Diagnosis Discharge Diagnosis (1) Dizziness: Status: Acute (2) Bradycardia: Status: Acute (3) Palpitations: Status: Acute DS: Summary Hospital Course Hospital Course: admission [facility] Complaint: dizziness 73-year-old woman presented to the ER with complaints of worsening dizziness, heart palpitations that have been present over the last couple weeks, waxing and waning. She denied chest pain, shortness breath, nausea, vomiting, diarrhea , recent illness. She reported have a worsening palpitations and headache today. she reports being on metoprolol for over a year for her blood pressure. In the ER, labs within acceptable limits, creatinine 1.67 with history of chronic kidney disease, elevated blood pressure readings highest 193/58, heart rate down to the 30s on metoprolol at home. EKG shows sinus bradycardia with marked arrhythmia. Patient given IV fluids in the ER. Placed on observation for further management and treatment of bradycardia hospital course: She presented with dizziness and found to have sick sinus syndrome necessating a pacemaker which was inserted on 11/26/[address] Sheriff without complications. Pacer interogated prrio to dc and functioning as expected. Cardiology has advised changing metoprolol to Coreg and Losartan started at 50 mg daily for BP control. She is doing well and will be discharged home with daughter and [facility] [address] To follow up with PCP for chronic hypercalcemia. CKD 3B is stable. Time Attestation Discharge coordination time: Greater than 30 minutes Quality: Safe Use of Opioids Does Pt have an Active Cancer Diagnosis on the Problem List?: No Quality: Stroke Does the patient have a stroke diagnosis?: No Physical Exam Vital Signs: Vital Signs: Last Vital Signs Temp 98.2 F 11/27/23 07:56 Pulse 73 11/27/23 07:56 Resp 18 11/27/23 07:56 BP 177/82 H 11/27/23 07:56 Pulse Ox 98 11/27/23 07:56 O2 Del Method Room Air 11/27/23 07:56 O2 Flow Rate 6 11/26/23 09:20 BMI result Body Mass Index 38.5 Const: Other: General: AO X 3, no acute distress Arm in Sling Resp: CTA bilateral CVS: S1,S2,RRR GI: +BS, NT, no distention Skin: wound d/c/i Neuro: motor grossly intact Psych: appropriate affect DS: Data Data Completed and Pending Labs on day of discharge: Laboratory Results - last 24 hr 11/26/23 11/26/23 11/27/23 20:07 22:56 06:31 Hold Purple Top SEE NOTE Sodium 138 Potassium 4.6 Chloride 106 Carbon Dioxide 25 Anion Gap 12 BUN 38 H Creatinine 1.62 H Estim Creat Clear Calc 31.1 Estimated GFR 31 POC Glucose 516 H* 470 H* Random Glucose 277 H Calcium 11.9 H Free T4 1.21 11/27/23 07:53 Hold Purple Top Sodium Potassium Chloride Carbon Dioxide Anion Gap BUN Creatinine Estim Creat Clear Calc Estimated GFR POC Glucose 239 H Random Glucose Calcium Free T4 Discharge Plan Discharge Anticipated Discharge Date/Time: 11/27/23 09:32 Patient Disposition: Home Health Service Discharge Diagnosis: Sick sinus syndrome, bradycardia, HTN Referrals: Sarah Beth Sanford MD [Primary Care Provider] - 1 Week Rishabh Sheriff MD [Physician] - 1 Week Discharge Medications: New losartan 50 mg Tablet 50 mg PO DAILY Qty: 30 0RF Protocol: Hold for SBP< HOLD for SBP < : 90 carvedilol 6.25 mg Tablet 6.25 mg PO BID Qty: 180 0RF Protocol: Hold for SBP/HR < HOLD for SBP < : 90 HOLD for HR < : 60 Continued atorvastatin 80 mg tablet 80 mg PO DAILY torsemide 10 mg tablet 10 mg PO DAILY acetaminophen 500 mg tablet 500 mg PO TID PRN (Reason: fever) levothyroxine 88 mcg tablet 88 mcg PO DAILY@0600 amlodipine 10 mg tablet 10 mg PO DAILY insulin lispro [Humalog KwikPen Insulin] 100 unit/mL insulin pen 8 unit subcut TIDWM insulin glargine [Lantus Solostar U-100 Insulin] 100 unit/mL (3 mL) insulin pen 30 unit subcut BEDTIME Jardiance 25 mg tablet 25 mg PO DAILY Discontinued metoprolol succinate 100 mg tablet extended release 24 hr 100 mg PO DAILY Discharge Orders: Discharge Order (Routine); Ordered 11/27/23 Ordered By: Hany Romo Diet: Diabetic diet Activity on Discharge: As tolerated Stand Alone Forms: Patient Portal Discharge page Activity Restrictions/Additional Instructions: Ice to wound 20 minutes several times today and tomorrow. May shower in 2 days. Remove outside dressing only. Leave Steri-Strips intact. No strenuous activities. Right upper extremity sling Care Plan Goals: recovery from pacemaker Health Concerns: uncontrolled high blood pressure Sick sinus syndrome Plan of Treatment: Follow above instruction, follow up with your primary care provider follow up with Dr. Sheriff for pacmaker check Note that Metoprolol has been discontinued and replaced with Coreg Losartan has added to your medicaitons to better control blood pressure Assessment: see above
--- NOTE | 2023-11-27 09:46 | P.F2F_ITS ---
Service Date Service Date: 11/27/23 Encounter Date of encounter: 11/27/23 Reasons for Services Signs and symptoms assessed: Dizzy, bradycardia Reason for long term: wound care, medication management, medication treatment and teach disease management Homebound: Leaving the home is medically contraindicated at this time without the asist of a device and/or another person due th the listed conditions above and below. Reason homebound: unsteady gait / fall risk, fall risk related to blood pressure changes and weakness related to hospital stay Homebound supporting statement: homebound due to weakness, dizziness, new pacemaker and not allowed to drive Certification: Based on the above findings, I certify that this patient is confined to the home and needs intermittent long term care, physical therapy and/or speech therapy, or continues to need occupational therapy. The patient is under my care, and I have initiated the establishment of the plan of care. The patient will be followed by a physician who will periodically review the plan of care. Time Spent With Patient Time: Total time managing care of this patient today ____ minutes.
--- NOTE | 2023-11-27 09:59 | P.PNTS_ITS ---
Subjective Subjective Date of Service: 11/27/23 Interval history: Feels ok this morning, some soreness at incision. Physical Exam Vital Signs: Vital Signs: Last Vital Signs Temp 98.2 F 11/27/23 07:56 Pulse 73 11/27/23 07:56 Resp 18 11/27/23 07:56 BP 177/82 H 11/27/23 07:56 Pulse Ox 98 11/27/23 07:56 O2 Del Method Room Air 11/27/23 07:56 O2 Flow Rate 6 11/26/23 09:20 BMI result Body Mass Index 38.5 Const: General: comfortable, no acute distress and alert Orientation/consci ousness: patient oriented x3 Chest: Other: pacemaker incision site clean, steris intact Resp: Effort & Inspection: normal respiratory effort Skin: General skin exam: no rashes or lesions noted Neuro: General: patient oriented x3 and moves all extremities Procedures Date of Service Date of Service: 11/27/23 Progress Note: A&P Assessment and plan (1) Sick sinus syndrome: Status: Acute (2) S/P cardiac pacemaker procedure: Status: Acute Plan POD #1 s/p dual chamber permanent pacemaker placement with fluoroscopy. Doing well post op. Incision clean. HR ranging from 60s-70s without dysrhythmias overnight. If interrogation ok, stable for dc from thoracic surgery standpoint. Can f/u in office in 1 week. Educated to wear sling at night. Patient comfortable with plan. Time Spent With Patient Time: Total time managing care of this patient today ____ minutes. Quality Stroke Does the patient have a stroke diagnosis?: No VTE Prior VTE?: No VTE Risk Level:: Medical - moderate - high VTE Device Contraindication: Treatment Not Indicated VTE Drug Contraindication: N/A - Med Ordered
--- NOTE | 2023-11-27 10:19 | P.PNCA_ITS ---
Subjective Subjective Date of Service: 11/27/23 Principal diagnosis: Sick sinus syndrome, hypertension Interval history: Status post pacemaker which was evaluated bedside working well. Blood pressure is elevated. Patient is a little anxious. However denies any lightheadedness or palpitations. Noted PVCs Review of Systems Review of Systems Yes all other systems are reviewed and are negative Physical Exam Vital Signs: Last Vital Signs Temp 98.2 F 11/27/23 07:56 Pulse 73 11/27/23 07:56 Resp 18 11/27/23 07:56 BP 177/82 H 11/27/23 07:56 Pulse Ox 98 11/27/23 07:56 O2 Del Method Room Air 11/27/23 07:56 O2 Flow Rate 6 11/26/23 09:20 BMI result Body Mass Index 38.5 Const General: cooperative, comfortable, no acute distress and alert Nutritional Appearance: obese Orientation/consciousness: patient oriented x3 Limitations: no limitations HEENT Head: Yes normocephalic and Yes atraumatic Neck Neck: Yes trachea midline, Yes supple and Yes no JVD Resp Effort & Inspection: normal respiratory effort Auscultation: clear to auscultation bilaterally Cardio Jugular venous distension: no JVD Palpation: normal PMI Rate: bradycardic Rhythm: abnormal rhythm with ectopic beats Heart sounds: S1 normal heart sound present, S2 normal heart sound present, no click, no gallops and no murmurs GI Auscultation: normal bowel sounds Skin General skin exam: no rashes or lesions noted Neuro General: patient oriented x3 and no focal motor deficits Extrem General: Yes no clubbing, cyanosis or edema Psych Appearance: grossly normal Objective Labs and Meds 11/25/23 05:45 11/27/23 06:31 Lab results: Laboratory Results - last 24 hr 11/26/23 11/26/23 11/27/23 20:07 22:56 06:31 Hold Purple Top SEE NOTE Sodium 138 Potassium 4.6 Chloride 106 Carbon Dioxide 25 Anion Gap 12 BUN 38 H Creatinine 1.62 H Estim Creat Clear Calc 31.1 Estimated GFR 31 POC Glucose 516 H* 470 H* Random Glucose 277 H Calcium 11.9 H Free T4 1.21 11/27/23 07:53 Hold Purple Top Sodium Potassium Chloride Carbon Dioxide Anion Gap BUN Creatinine Estim Creat Clear Calc Estimated GFR POC Glucose 239 H Random Glucose Calcium Free T4 Imaging Radiologist's impression: Impressions Guidance Fluoroscopy 11/26/23 08:50 IMPRESSION: Fluoroscopy and spot films as described above. Please see Dr. Rishabh Sheriff's procedure note for full details. Progress Note: A&P Assessment and plan (1) Sick sinus syndrome: Status: Acute Assessment and Plan: Sick sinus syndrome status post dual-chamber pacemaker. Working well. Follow- up chest x-ray today for proper lead placement and evaluation for pneumothorax if this is okay patient can be discharged home. Follow-up for wound check with thoracic surgery and follow-up with us in the clinic in 6 weeks time. (2) Uncontrolled hypertension: Status: Acute Assessment and Plan: Hypertension appears uncontrolled again probably related to some anxiety. Continue with carvedilol, losartan and amlodipine therapy. Advised to monitor blood pressure at home maintain a log. Low-salt diet was discussed. Stress mitigation strategies was discussed. Will follow up in the clinic for further management. Outpatient workup will be pursued. Will follow with her in 6 weeks time. Time Spent With Patient Time: Total time managing care of this patient today ____ minutes. Progress Note: Quality Stroke Does the patient have a stroke diagnosis?: No Procedures Date of Service Date of Service: 11/27/23
--- NOTE | 2023-11-28 09:48 | MHC.CM.PN ---
late entry note for 11/27/23, pt medically cleared for dc w/new vna for sn d/t new pacemaker and cardiac med changes, dtr maksim for transport.
--- NOTE | 2023-11-28 09:50 | MHC.CM.PN ---
post dc note: cm unable to obtain vna services for pt yesterday 11/27 however cm received message from [facility] this am reporting they could see pt today, cm contacted pt's dtr/hcp maksim who is requesting to be pt's contact as she would like to be able to reinforce vna recommendations/instructions, [facility] updated via [employer]
== END 2023-11-27 12:50 | disposition home health service (06) | DRG 243 ==
LOC: HO.ED 13:36 → HO.EDOVER 15:09 → HO.IMC 11-25 16:54
PROVIDERS: Hospitalist; Physician Assistant; Surgery; Admitting Provider Nurse Practitioner Acute Care; Emergency Provider Emergency Medicine; PCP Internal Medicine; Visit Provider Internal Medicine
PROC: 0JH606Z Insertion of Pacemaker, Dual Chamber into Chest Subcutaneous Tissue and Fascia, Open Approach (ICD-10-PCS; principal; 2023-11-26 07:30)
DX: I49.5 Sick sinus syndrome (principal); E87.0 Hyperosmolality and hypernatremia; I12.9 Hypertensive chronic kidney disease with stage 1 through stage 4 chronic kidney disease, or unspecified chronic kidney disease; E78.5 Hyperlipidemia, unspecified; E21.3 Hyperparathyroidism, unspecified; N18.32 Chronic kidney disease, stage 3b; E03.9 Hypothyroidism, unspecified; E11.22 Type 2 diabetes mellitus with diabetic chronic kidney disease; Z79.4 Long term (current) use of insulin; Z79.890 Hormone replacement therapy; Z79.899 Other long term (current) drug therapy
CPT/HCPCS: 36415; 71045; 80048; 80053; 82947; 84439; 84443; 84484; 85025; 85379; 85610; 85730; 93005; 99024; 99222; 99285; C1785; C1892; C1898; J0131; J0665; J0690; J1100; J1644; J2405; J2598; J2704; J3010

== ENCOUNTER → 2023-11-24 10:12 | Outpatient (BNV) | payer MEDICARE, MEDICAID, SELFPAY | PROVIDERS: PCP Internal Medicine; Visit Provider Internal Medicine Cardiovascular Disease | DX: R00.1 Bradycardia, unspecified (principal); R94.31 Abnormal electrocardiogram [ECG] [EKG] | CPT/HCPCS: 93010 ==

== ENCOUNTER → 2023-11-24 15:04 | Outpatient (BNV) | payer OTHER, SELFPAY | PROVIDERS: Admitting Provider Nurse Practitioner Acute Care; Emergency Provider Emergency Medicine; PCP Internal Medicine; Visit Provider Hospitalist | DX: R42 Dizziness and giddiness (principal); R00.1 Bradycardia, unspecified; R00.2 Palpitations | CPT/HCPCS: 99222; 99233; 99238; G0180 ==

== ENCOUNTER → 2023-11-24 15:04 | Outpatient (BNV) | payer OTHER, SELFPAY | PROVIDERS: Admitting Provider Nurse Practitioner Acute Care; Emergency Provider Emergency Medicine; PCP Internal Medicine; Visit Provider Surgery | DX: I49.5 Sick sinus syndrome (principal) | CPT/HCPCS: 33208; 99223 ==

== ENCOUNTER → 2023-11-24 15:04 | Outpatient (BNV) | payer OTHER, SELFPAY | PROVIDERS: Admitting Provider Nurse Practitioner Acute Care; Emergency Provider Emergency Medicine; PCP Internal Medicine; Visit Provider Internal Medicine Cardiovascular Disease | DX: I49.5 Sick sinus syndrome (principal); I10 Essential (primary) hypertension | CPT/HCPCS: 99222; 99233 ==

== ENCOUNTER 2023-12-03 14:14 | Outpatient (AMB) | payer OTHER, SELFPAY ==
[2023-12-03 14:22] VITALS: BP 198/102; PULSE 78
--- NOTE | 2023-12-03 14:22 | A.OFFVIS_ITS ---
Intake Vital Signs 12/03/23 14:22 Weight 203 lb BP 198/102 H Blood Pressure Location Lt radial Position Sitting Pulse 78 Intake Visit Reasons: S/p Pacemaker insertion-in pt Intake Note: Patient here s/p pacemaker insertion on 11-26-23. Patient c/o: pain on chest at incision site that get worse at night. Creative Guru Required: No Accompanied by: daught Allergies No Known Allergies Allergy (Verified 12/03/23 14:23) HPI HPI Comments History of Present Illness Details Patient presents for follow-up with her daughter. No wound issues or complaints. Patient is slowly but steadily increasing her activity level. She has been wearing her sling diligently. [facility] Medical History Tricuspid regurgitation GERD (gastroesophageal reflux disease) Depression with anxiety Diverticulosis Obesity Nephropathy Neuropathy Retinopathy Iron deficiency anemia Hypercalcemia Hypothyroidism CKD stage G3b/A3, GFR 30-44 and albumin creatinine ratio >300 mg/g Breast cancer Basal cell carcinoma Hypertension Hyperlipidemia Diabetes mellitus type 2 in obese Surgical History Hx of left cataract extraction H/O lumpectomy Family History Mother Esophageal cancer Family/Other No problems noted. Father Lung cancer Social History Household Members: Family Housing: Apartment Do you presently have visiting nurse or other home services: No Patient Tobacco Use Status: Never used Tobacco Second Hand Smoke Exposure: No service: No Physical Exam Vital Signs: Last Vital Signs Pulse 78 12/03/23 14:22 BP 198/102 H 12/03/23 14:22 Chest Other: Wound well healed. Assessment & Plan Assessment & Plan (1) S/P cardiac pacemaker procedure: Code(s): Z95.0 - Presence of cardiac pacemaker Plan Patient and daughter have been given local instructions, and will follow-up p.r.n.. All questions answered. They will follow-up with cardiology next week. Coding Level of Care Code Global (91512) Diagnoses S/P cardiac pacemaker procedure Z95.0
== END 2023-12-03 14:28 | disposition home or self-care (01) ==
PROVIDERS: PCP Internal Medicine; Visit Provider Surgery
DX: Z95.0 Presence of cardiac pacemaker (principal)
CPT/HCPCS: 99024

== ENCOUNTER → 2023-12-03 14:14 | Outpatient (BNVA) | payer OTHER, SELFPAY | PROVIDERS: PCP Internal Medicine; Visit Provider Surgery | DX: Z48.812 Encounter for surgical aftercare following surgery on the circulatory system (principal); Z95.0 Presence of cardiac pacemaker | CPT/HCPCS: 99212 ==

== ENCOUNTER → 2023-12-30 23:59 | Outpatient (BNV) | payer OTHER, SELFPAY ==
--- NOTE | 2023-12-30 14:28 | MHC.OFFVIS ---
Intake Intake Visit Reasons: Remote Device Check- [facility] Allergies No Known Allergies Allergy (Verified 12/03/23 14:23) PFSH Medical History Tricuspid regurgitation GERD (gastroesophageal reflux disease) Depression with anxiety Diverticulosis Obesity Nephropathy Neuropathy Retinopathy Iron deficiency anemia Hypercalcemia Hypothyroidism CKD stage G3b/A3, GFR 30-44 and albumin creatinine ratio >300 mg/g Breast cancer Basal cell carcinoma Hypertension Hyperlipidemia Diabetes mellitus type 2 in obese Surgical History Hx of left cataract extraction H/O lumpectomy Family History Mother Esophageal cancer Family/Other No problems noted. Father Lung cancer Social History Household Members: Family Housing: Apartment Do you presently have visiting nurse or other home services: No Patient Tobacco Use Status: Never used Tobacco Second Hand Smoke Exposure: No service: No Office Procedures Cardiac Device Check Cardiac Device Check Details: Remote pacemaker report generated 12/30/2023. Pacemaker function is adequate. Intermittent episodes of atrial fibrillation with total burden of 2.2% [id number] Cardiac Device Interrogation, pacemaker Procedure code (CPT) selection complete Assessment & Plan Assessment & Plan (1) S/P cardiac pacemaker procedure: Code(s): Z95.0 - Presence of cardiac pacemaker Plan: See above Coding Level of Care Code Procedure Only Diagnoses S/P cardiac pacemaker procedure Z95.0 CPT Codes Cardiac Device Check - Cardiac Device 12: [id number] Cardiac Device Interrogation, pacemaker ([id number])
== END ==
PROVIDERS: PCP Internal Medicine; Visit Provider Internal Medicine Cardiovascular Disease
DX: I48.91 Unspecified atrial fibrillation (principal); Z95.0 Presence of cardiac pacemaker
CPT/HCPCS: 93294

== ENCOUNTER → 2024-01-14 08:35 | Outpatient (REF) | payer OTHER, SELFPAY | LOC: HO.CARD 08:35 | PROVIDERS: Visit Provider Internal Medicine Cardiovascular Disease | DX: Z13.89 Encounter for screening for other disorder (principal) ==

== ENCOUNTER 2024-02-12 15:07 | Outpatient (AMB) | payer OTHER, SELFPAY ==
--- NOTE | 2024-02-12 15:22 | MHC.OFFVIS ---
Intake Vital Signs 02/12/24 15:25 Height 5 ft 1 in Weight 207 lb 3.752 oz BMI 39.2 BP 150/94 H Blood Pressure Location Lt brachial Position Sitting Pulse 60 Intake Visit Reasons: follow-up with [facility] after stress test Intake Note: Follow-up with [facility] stress test got moved to 02/24 feeling good having ekg today Domain Architect Required: No Allergies No Known Allergies Allergy (Verified 12/03/23 14:23) Medication List - Last Reconciled 02/12/24 by Oneal Jennings MD amlodipine 10 mg PO DAILY apixaban (Eliquis) 5 mg PO BID 30 days atorvastatin 80 mg PO DAILY carvedilol 6.25 mg See Protocol PO BID empagliflozin (Jardiance) 25 mg PO DAILY insulin glargine (Lantus Solostar U-100 Insulin) 30 units subcut BEDTIME insulin lispro (Humalog KwikPen (U-100) Insulin) 8 units subcut TIDWM levothyroxine 88 mcg PO DAILY@0600 losartan 50 mg See Protocol PO DAILY torsemide 10 mg PO DAILY HPI HPI Comments History of Present Illness Details Elbow comes for follow-up. Since hospitalization pacemaker of pacemaker she says she had been feeling better and no more symptoms of lightheadedness or palpitations. She has had no syncopal episodes. However blood pressures remained uncontrolled. There is increased medications and a blood pressure still remains elevated. She denies any symptoms of palpitations although on the pacer telemetry was noted to have episodes of atrial fibrillation and is currently taking Eliquis therapy. [facility] Medical History (Updated 02/13/24 @ 15:16 by Oneal Jennings MD) Cardiac pacemaker in situ Tricuspid regurgitation GERD (gastroesophageal reflux disease) Depression with anxiety Diverticulosis Obesity Nephropathy Neuropathy Retinopathy Iron deficiency anemia Hypercalcemia Hypothyroidism CKD stage G3b/A3, GFR 30-44 and albumin creatinine ratio >300 mg/g Breast cancer Basal cell carcinoma Hypertension Hyperlipidemia Diabetes mellitus type 2 in obese Surgical History Hx of left cataract extraction H/O lumpectomy Family History Mother Esophageal cancer Family/Other No problems noted. Father Lung cancer Social History Household Members: Family Housing: Apartment Do you presently have visiting nurse or other home services: No Patient Tobacco Use Status: Never used Tobacco Second Hand Smoke Exposure: No service: No Review of Systems Const Denies chills, Denies fatigue, Denies fever(s), Denies frequent falls, Denies weakness, Denies weight gain and Denies weight loss ENT Denies dizziness Card Denies chest pain, Denies leg edema, Denies lightheadedness, Denies palpitations, Denies dyspnea, Denies dyspnea on exertion, Denies orthopnea and Denies other (loss of consciousness) Resp Denies cough, Denies dyspnea and Denies dyspnea on exertion GI Denies hematochezia and Denies change in stool character Musc Denies abnormal gait, Denies muscle weakness, Denies numbness, Denies radiating pain into limb and Denies tingling Neuro Denies abnormal gait, Denies dizziness, Denies frequent falls, Denies numbness, Denies tingling and Denies weakness Endo Denies fatigue and Denies palpitations Physical Exam Vital Signs: Last Vital Signs Pulse 60 02/12/24 15:25 BP 150/94 H 02/12/24 15:25 BMI result Body Mass Index 39.2 Last Vital Signs Temp 98.2 F 11/27/23 07:56 Pulse 73 11/27/23 07:56 Resp 18 11/27/23 07:56 BP 177/82 H 11/27/23 07:56 Pulse Ox 98 11/27/23 07:56 O2 Del Method Room Air 11/27/23 07:56 O2 Flow Rate 6 11/26/23 09:20 BMI result Body Mass Index 38.5 Const General: cooperative, comfortable, no acute distress and alert Nutritional Appearance: obese Orientation/consciousness: patient oriented x3 Limitations: no limitations HEENT Head: Yes normocephalic and Yes atraumatic Neck Neck: Yes trachea midline, Yes supple and Yes no JVD Resp Effort & Inspection: normal respiratory effort Auscultation: clear to auscultation bilaterally Cardio Jugular venous distension: no JVD Palpation: normal PMI Rate: bradycardic Rhythm: abnormal rhythm with ectopic beats Heart sounds: S1 normal heart sound present, S2 normal heart sound present, no click, no gallops and no murmurs GI Auscultation: normal bowel sounds Skin General skin exam: no rashes or lesions noted Neuro General: patient oriented x3 and no focal motor deficits Extrem General: Yes no clubbing, cyanosis or edema Psych Appearance: grossly normal Office Procedures Cardiac Device Check Cardiac Device Check Details: Dual-chamber [facility] pacemaker in place. Programmed in DDDR at 60 beats per minute. On reviewing the telemetry there is a paced V sensed rhythm followed by atrial refractory event which is unexplained. This is followed by atrial paced event again and with normal capture of the atrium. Atrial pacing 92% of time. Ventricular pacing recorded at 83% of time. There were episodes of atrial fibrillation noted. Atrial capture thresholds are adequate and and in our capture mode. Ventricular capture thresholds adequate and reprogrammed to enhance battery life. Atrial sensing is adequate. Ventricular sensing is adequate. Pacing lead impedance is stable. Battery life is excellent [id number] Cardiac Device Check, pacemaker dual lead Procedure code (CPT) selection complete Assessment & Plan Assessment & Plan (1) Paroxysmal atrial fibrillation: Code(s): I48.0 - Paroxysmal atrial fibrillation Plan: Patient noted to have paroxysmal atrial fibrillation on pacer telemetry. No related symptoms related to it. Avoidance of stimulants was discussed. No indication for antiarrhythmic drug therapy at this point time as the episodes are paroxysmal. Will increase carvedilol as above. Continue full oral anticoagulation, currently on Eliquis 5 mg b.i.d.. Semi annual renal function test should be pursued. Recommend echocardiogram in near future. (2) Cardiac pacemaker in situ: Code(s): Z95.0 - Presence of cardiac pacemaker Plan: Cardiac pacemaker in-situ, working well. Reprogrammed for adequate function. Will follow-up in 4 weeks in the office with a pacer rep to explain the atrial refractory events. Chest x-ray. (3) Uncontrolled hypertension: Code(s): I10 - Essential (primary) hypertension Plan: Uncontrolled hypertension. Increase losartan to 100 mg daily. Increase carvedilol. Advised to monitor blood pressure at home maintain a log. Low-salt diet was discussed. Obtain echocardiogram near future to evaluate for LV systolic and diastolic function to evaluate for hypertensive heart disease also suggest a myocardial perfusion imaging in near future Will follow up in the clinic after above-mentioned test in 4 weeks time. Orders: Orders Basic Metabolic Panel 02/12/24 I10 - Essential (primary) hypertension CA echo transthoracic complete 02/12/24 I10 - Essential (primary) hypertension XR chest 2V 02/12/24 Z95.0 - Presence of cardiac pacemaker Medications: New losartan 100 mg PO DAILY 30 tabs 5RF Z95.0 - Presence of cardiac pacemaker carvedilol (Coreg) must administer with a meal/food 12.5 mg PO BID 60 tabs 5RF Z95.0 - Presence of cardiac pacemaker Discontinued carvedilol Discontinued Reason: Doctor's Order 6.25 mg See Protocol PO BID 180 tabs 0RF losartan Discontinued Reason: Doctor's Order 50 mg See Protocol PO DAILY 30 tabs 0RF Coding Level of Care Code Est Pt Level 4 (36711) Diagnoses Paroxysmal atrial fibrillation I48.0 Cardiac pacemaker in situ Z95.0 Uncontrolled hypertension I10 CPT Codes Cardiac Device Check - Cardiac Device 2: [id number] Cardiac Device Check, pacemaker dual lead ([id number])
[2024-02-12 15:25] VITALS: BP 150/94; PULSE 60; BMI 39.2
== END 2024-02-12 16:27 | disposition home or self-care (01) ==
PROVIDERS: PCP Internal Medicine; Visit Provider Internal Medicine Cardiovascular Disease
DX: I48.0 Paroxysmal atrial fibrillation (principal); Z95.0 Presence of cardiac pacemaker; I10 Essential (primary) hypertension
CPT/HCPCS: 93280; 99214

== ENCOUNTER 2024-02-12 15:07 | Outpatient (REF) | payer OTHER, SELFPAY ==
--- NOTE | ~2024-02-12 | XR_ITS ---
EXAMINATION: XR CHEST 2 VIEWS CLINICAL INFORMATION: Status post cardiac pacemaker placement. COMPARISON: None. TECHNIQUE: Frontal and lateral views of the chest were obtained. FINDINGS: The heart, great vessels, pulmonary vasculature and mediastinum are normal. There is atherosclerotic calcification of the aortic knob. The lungs show no focal infiltrate, effusion or pneumothorax. There is mild elevation of the right hemidiaphragm. There is no acute osseous abnormality. A dual-lead, dual-chamber pacemaker device is seen, without lead fracture or change in lead tip positions. XR/XR chest 2V IMPRESSION: No active cardiopulmonary disease.
[2024-02-12 18:45] LABS: Anion Gap 11 (12-20); Blood Urea Nitrogen 40 mg/dL (9-16); Calcium 11.7 mg/dL (8.4-10.2); Carbon Dioxide 26 mmol/L (22-29); Chloride 108 mmol/L (96-108); Estimated Glomerular Filt Rate 32; Glucose Random 193 mg/dL (60-115); Potassium 5.2 mmol/L (3.3-5.1); Sodium 140 mmol/L (135-145)
== END 2024-02-12 15:08 | disposition home or self-care (01) ==
LOC: HO.LAB 15:07
PROVIDERS: PCP Internal Medicine; Visit Provider Internal Medicine Cardiovascular Disease
DX: I48.0 Paroxysmal atrial fibrillation (principal); I10 Essential (primary) hypertension; Z95.0 Presence of cardiac pacemaker
CPT/HCPCS: 36415; 71046; 80048; 93280; 99212

== ENCOUNTER → 2024-02-25 09:02 | Outpatient (REF) | payer OTHER, SELFPAY ==
--- NOTE | ~2024-02-25 | NM_ITS ---
Myocardial perfusion study Indication: Status post pacemaker placement to evaluate for myocardial ischemia. Shortness of breath Technique: The patient was brought in for a Lexiscan perfusion study on 02/25/2024. Patient performed low-level exercise and was injected 0.4 mg of Lexiscan intravenously. Within a minute of injection, 30 mCi of sestamibi was given intravenously. Images were obtained using the SPECT gamma camera interlaced with the gating device. Images were obtained in supine position. Resting perfusion study was performed on 03/04/2024. Patient was administered 30 mCi of sestamibi intravenously at rest. Images were then obtained in supine position. Images obtained with and without CT attenuation. Total DLP 96 mGy-cm. Images were processed with the software and compared side to side in short axis, horizontal long axis and vertical long axis views. Findings: The stress perfusion study showed non attenuated images show some thinning of the apex of the LV myocardium. Remainder of the LV myocardium is normally perfused. Attenuation corrected images show thinning of the apex of the LV myocardium.. The gated study shows normal LV systolic function with calculated LVEF of 75%. LV cavity is normal size. The gated study shows normal systolic wall thickening and contraction of segments. Resting study shows no significant change in perfusion pattern compared to stress perfusion study. Gating at rest reveals normal systolic wall motion with ejection fraction at greater than 60%. The findings are consistent with likely normal myocardial perfusion. NM/NM cardiolite stress test Impression: 1. Myocardial perfusion imaging study shows likely normal perfusion 2. Gated LVEF is greater than 60% 3. Transient ischemic dilatation not present EKG is nondiagnostic for ischemia
--- NOTE | 2024-02-25 09:05 | CA_ITS ---
Acquisition Time: 2024-02-25 09:18:56 Total Exercise Time: 00:02:00 Test Indications: SICK SINUS SYNDROME Medications: SEE H Protocol: LEXISCAN Max HR: 086 BPM 59% of Pred: 145 BPM Max BP: 154/068 mmHG Max Work Load: 1.0 METS Pharmacoloical stress test with Lexiscan injection while sitting and kicking her legs, with mild SOB, no chest discomfort, with isolated PVCs, with normotensive response to injection, with nondiagnositic EKGs. Aminophylline 75mg IVP given to reverse Lexiscan. Nuclear images pending, Test reviewed with Dr. Jennings Referred By: Oneal Jennings Overread By: Natalie Mercado
== END ==
LOC: HO.CARD 09:02
PROVIDERS: PCP Internal Medicine; Visit Provider Internal Medicine Cardiovascular Disease
DX: I49.5 Sick sinus syndrome (principal); R42 Dizziness and giddiness; R00.2 Palpitations; I10 Essential (primary) hypertension; R00.1 Bradycardia, unspecified
CPT/HCPCS: 78452; 93017; A9500; J0280; J2785

== ENCOUNTER → 2024-02-25 09:05 | Outpatient (BNV) | payer OTHER, SELFPAY | PROVIDERS: PCP Internal Medicine; Visit Provider Nurse Practitioner | DX: R06.02 Shortness of breath (principal); Z95.0 Presence of cardiac pacemaker | CPT/HCPCS: 78452; 93016; 93018 ==

== ENCOUNTER → 2024-03-26 08:59 | Outpatient (REF) | payer OTHER, SELFPAY ==
--- NOTE | 2024-03-26 09:01 | CA_ITS ---
Transthoracic Echocardiogram Patient (Last, First, Middle): Ebony Camarillo, Gender: Female Date of : 1950 Age: 73 Procedure Date: 03/26/2024 Procedure Type: Transthoracic Echocardiogram Location: OP Height: 154.94 cm Weight: 93.44 kg BSA: 1.91 m2 Heart Rate: bpm BP: 124 / 80 mmHg Emergency Department Clinician: Referring MD: Oneal Jennings MD Symptoms: I10 - Essential (primary) hypertension Study Quality: Adequate Conclusions: - Normal left ventricular size and systolic function. There is mildly increased left ventricular wall thickness. The visually estimated ejection fraction is between 55-60%. - Mildly increased right ventricular cavity size. There is normal right ventricular systolic function. There is a pacemaker wire seen in the right ventricle. - The left atrium is moderately dilated. Findings Left Ventricle Normal left ventricular size and systolic function. There is mildly increased left ventricular wall thickness. The visually estimated ejection fraction is between 55-60%. There is no evidence of regional wall motion abnormalities. There is paradoxical septal motion consistent with a right ventricular pacemaker. Diastolic function is indeterminate on the basis of available data. Right Ventricle Mildly increased right ventricular cavity size. There is normal right ventricular systolic function. There is a pacemaker wire seen in the right ventricle. Atria The left atrium is moderately dilated. Aortic Valve Normal aortic valve structure and function. There is no aortic valve stenosis. There is no aortic valve regurgitation. Mitral Valve The mitral valve appears normal. There is trace mitral valve regurgitation. There is no mitral valve stenosis. Pulmonic Valve The pulmonic valve is normal. There is trace pulmonic valve regurgitation. Tricuspid Valve Normal tricuspid valve structure. There is moderate tricuspid valve regurgitation. Mildly elevated right atrial pressure. There is no evidence of pulmonary hypertension. Great Vessels All visible segments of the aorta are normal in size. The visualized portions of the pulmonary artery and branches are normal. Venous The inferior vena cava is normal in size and collapses less than 50% with inspiration. Pericardium/Pleural There is no evidence of pericardial effusion. Measurements 2D Linear Measurements IVSd: 1.26 0.6-0.9/0.6-1.0 cm LVIDd: 4.30 3.9-5.3/4.2-5.9 cm LVIDd Index: 2.25 2.4-3.2/2.2-3.1 cm/m2 LVIDs: 2.68 2.0-3.6 cm LVPWd: 1.20 0.7-1.1 cm Ao Root: 3.00 2.1-3.5 cm LA Diam: 4.30 2.7-3.8/3.0-4.0 cm LAIDs Index: 2.25 1.5-2.3 cm/m2 LV Mass: 238.59 67-162/88-224 g LV Mass Index: 124.91 43-95/49-115 g/m2 LVOT Diam: 1.90 3.0+(-)1.3 cm 2D Systolic Function EF 4C: 60.50 >55% EF 2C: 65.50 >55% EF BiP: 60.00 >55% Mitral Valve MV VTI: 0.32 MV Pk Diego: 1.02 MV Mn Diego: 0.58 MV Pk Grad: 4.00 MV Mn Grad: 2.00 MV Pk E: 0.94 MV PK A: 0.72 MV Decel Time: 141.00 E/A: 1.30 E'Lateral: 12.80 E'Medial: 7.51 E/E' Med: 12.50 E/E' Lat: 7.30 PHT: 41.00 MVA PHT: 5.37 MVA Continuity: 1.86 Decel Sierra: 6.63 Aortic Valve AoV Pk Diego: 1.48 AoV Mn Diego: 0.96 AoV VTI: 0.40 AoV Pk Grad: 9.00 Aov Mn Grad: 4.00 STEPHANIE Cont.VTI: 1.47 LVOT LVOT Pk Diego: 0.82 LVOT Mn Diego: 0.54 LVOT VTI: 0.21 LVOT Pk Grad: 3.00 LVOT Mn Grad: 1.00 LVOT Diam: 1.90 LVOT Area: 2.84 Diastolic Function MV Pk E: 0.94 MV Pk A: 0.72 E/A: 1.30 E'Medial: 7.51 E/E' Med: 12.50 E' Laterial: 12.80 E/E' Lat: 7.30 Right Ventricle TAPSE (mm): 24.40 Tricuspid Valve TR Pk Diego: 2.69 TR Pk Grad: 29.00 Great Vessels Aorta Ao Root-2D: 3.00 2.0-3.7 cm Ao Asc: 2.80 2.1-3.4 cm Pulmonary Valve PV Pk Diego: 0.92 Peak PV Grad: 3.00 Updated in Other Vendor System with Status of Final Ej Ash MD electronically signed on 03/27/2024 9:00:24 PM with status of Final
== END ==
LOC: HO.CARD 08:59
PROVIDERS: PCP Internal Medicine; Visit Provider Internal Medicine Cardiovascular Disease
DX: I10 Essential (primary) hypertension (principal)
CPT/HCPCS: 93306

== ENCOUNTER → 2024-03-26 09:01 | Outpatient (BNV) | payer OTHER, SELFPAY | PROVIDERS: PCP Internal Medicine; Visit Provider Internal Medicine Cardiovascular Disease | DX: I36.1 Nonrheumatic tricuspid (valve) insufficiency (principal); Z95.0 Presence of cardiac pacemaker; I10 Essential (primary) hypertension | CPT/HCPCS: 93350 ==

== ENCOUNTER → 2024-03-30 23:59 | Outpatient (BNV) | payer OTHER, SELFPAY ==
--- NOTE | 2024-03-30 15:37 | MHC.OFFVIS ---
Intake Visit Reasons: Remote device check- [facility] Allergies No Known Allergies Allergy (Verified 12/03/23 14:23) PFSH Medical History (Updated 02/13/24 @ 15:16 by Oneal Jennings MD) Cardiac pacemaker in situ Tricuspid regurgitation GERD (gastroesophageal reflux disease) Depression with anxiety Diverticulosis Obesity Nephropathy Neuropathy Retinopathy Iron deficiency anemia Hypercalcemia Hypothyroidism CKD stage G3b/A3, GFR 30-44 and albumin creatinine ratio >300 mg/g Breast cancer Basal cell carcinoma Hypertension Hyperlipidemia Diabetes mellitus type 2 in obese Surgical History Hx of left cataract extraction H/O lumpectomy Family History Mother Esophageal cancer Family/Other No problems noted. Father Lung cancer Social History Household Members: Family Housing: Apartment Do you presently have visiting nurse or other home services: No Patient Tobacco Use Status: Never used Tobacco Second Hand Smoke Exposure: No service: No Office Procedures Cardiac Device Check Cardiac Device Check Details: Remote pacemaker report generated 03/30/2024. Pacemaker function is overall adequate. Patient has high rates of atrial ventricular pacing. Atrial sensitivity is low which is not affecting the function will check at next office visit [id number] Cardiac Device Interrogation, pacemaker Procedure code (CPT) selection complete Assessment & Plan Assessment & Plan (1) Cardiac pacemaker in situ: Code(s): Z95.0 - Presence of cardiac pacemaker Category: Medical Plan: See above Coding Level of Care Code Procedure Only Diagnoses Cardiac pacemaker in situ Z95.0 CPT Codes Cardiac Device Check - Cardiac Device 12: [id number] Cardiac Device Interrogation, pacemaker ([id number])
== END ==
PROVIDERS: PCP Internal Medicine; Visit Provider Internal Medicine Cardiovascular Disease
DX: Z45.018 Encounter for adjustment and management of other part of cardiac pacemaker (principal)
CPT/HCPCS: 93294

== ENCOUNTER 2024-04-19 13:03 | Outpatient (AMB) | payer OTHER, SELFPAY ==
--- NOTE | 2024-04-19 13:58 | MHC.OFFVIS ---
Vital Signs 04/19/24 14:01 BP 160/62 H Blood Pressure Location Lt brachial Position Sitting Pulse 59 Pulse Source Pulse Oximeter Intake Visit Reasons: follow up w/ device check Refuse And Recycling Worker Required: Yes Resume Specialist: Resume Specialist Present Allergies No Known Allergies Allergy (Verified 04/19/24 13:59) Medication List - Last Reconciled 04/19/24 by Danielle Pierce, NUCLEAR PHYSICS TEACHER-C amlodipine 10 mg PO DAILY apixaban (Eliquis) 5 mg PO BID 30 days atorvastatin 80 mg PO DAILY carvedilol (Coreg) 12.5 mg PO BID empagliflozin (Jardiance) 25 mg PO DAILY insulin glargine (Lantus Solostar U-100 Insulin) 30 units subcut BEDTIME insulin lispro (Humalog KwikPen (U-100) Insulin) 8 units subcut TIDWM levothyroxine 88 mcg PO DAILY@0600 losartan 100 mg PO DAILY torsemide 10 mg PO DAILY PFSH Medical History Cardiac pacemaker in situ Tricuspid regurgitation GERD (gastroesophageal reflux disease) Depression with anxiety Diverticulosis Obesity Nephropathy Neuropathy Retinopathy Iron deficiency anemia Hypercalcemia Hypothyroidism CKD stage G3b/A3, GFR 30-44 and albumin creatinine ratio >300 mg/g Breast cancer Basal cell carcinoma Hypertension Hyperlipidemia Diabetes mellitus type 2 in obese Surgical History Hx of left cataract extraction H/O lumpectomy Family History Mother Esophageal cancer Family/Other No problems noted. Father Lung cancer Social History Household Members: Family Housing: Apartment Do you presently have visiting nurse or other home services: No Patient Tobacco Use Status: Never used Tobacco Second Hand Smoke Exposure: No service: No Review of Systems Const All systems reviewed & are unremarkable except as noted in HPI and below Card Denies chest pain, Denies chest pain at rest, Denies chest pain with activity, Denies dyspnea and Denies dyspnea on exertion Resp Denies dyspnea and Denies dyspnea on exertion Physical Exam Vital Signs: Last Vital Signs Pulse 59 04/19/24 14:01 BP 160/62 H 04/19/24 14:01 Const General: cooperative, healthy appearing, comfortable and no acute distress Orientation/consciousness: patient oriented x3 Neck Neck: Yes normal visual inspection and Yes no JVD Resp Effort & Inspection: normal respiratory effort Auscultation: clear to auscultation bilaterally, no crackles, no rales, no rhonchi and no wheezes Cardio Jugular venous distension: no JVD Rate: regular rate Rhythm: regular rhythm Heart sounds: S1 normal heart sound present, S2 normal heart sound present, no murmurs and no rubs Neuro General: patient oriented x3 Extrem General: Yes normal to inspection and No no pedal edema Psych Appearance: grossly normal Mental Status: mental status grossly normal Speech and movement: Normal speech and movement present Office Procedures Cardiac Device Check Cardiac Device Check Details: [employer] dual-chamber pacemaker interrogation today shows battery 7.2 years, DDDR mode, low rate 60, atrial threshold 0.75 volts at 0.5 milliseconds, ventricular threshold 0.75 volts at 0.5 milliseconds, a paced 87%, V paced 86%, reviewed with rep that patient has atrial refractory events, she states these are retrograde conduction however the device is functioning normally and mode switches appropriately, patient asymptomatic. Making adjustments may increase her chance of having arrhythmia. No changes made. [id number] Cardiac Device Check, pacemaker dual lead Procedure code (CPT) selection complete Assessment & Plan Assessment & Plan (1) Paroxysmal atrial fibrillation: Code(s): I48.0 - Paroxysmal atrial fibrillation Category: Medical Plan: History of paroxysmal atrial fibrillation, asymptomatic. Echocardiogram done 03/26/2024 showing EF 55-60%, left atrium moderately dilated, mild increase in the RV size. She had a pharmacological nuclear stress test done on 03/04/24 showing normal myocardial perfusion imaging, EF 60%. She denies feeling heart palpitations. She is on carvedilol for heart rate control. She is on Eliquis for anticoagulation. No bleeding issues reported. Labs done 02/12/2024 showed creatinine 1.57. Her Eliquis dose is appropriate for her age and weight. Discuss avoidance of stimulants. No indication for antiarrhythmic drug therapy at this point time as the episodes are paroxysmal. Semi annual renal function test should be pursued. Cardiology follow-up 6 months, sooner if needed (2) Cardiac pacemaker in situ: Code(s): Z95.0 - Presence of cardiac pacemaker Category: Medical Plan: Cardiac pacemaker in-situ,, functioning normally on interrogation today. She does have atrial refractory events which according to the rep are retrograde conduction however device is functioning normally. It is mode switching appropriately. No changes have been made. Next office interrogation due in 6 months. Remote monitoring in use. (3) Uncontrolled hypertension: Code(s): I10 - Essential (primary) hypertension Category: Medical Plan: Blood pressure elevated on last visit. Her losartan was increased up to 100 mg daily. Her carvedilol was increased up to 12.5 mg b.i.d.. Today her blood pressure remains elevated. A recheck done by me was 148/62. She tells me she does use salt in her diet. Instructed on low-salt diet. Reviewed med compliance. She has PCP follow-up on 06/02/2024. Blood pressure remains elevated then carvedilol dose can be further titrated or addition of hydralazine can be considered. Continue current carvedilol, losartan, amlodipine, torsemide. Plan Time spent on chart review, documentation, interview and assessment Coding Level of Care Code Est Pt Level 4 (97115) Diagnoses Paroxysmal atrial fibrillation I48.0 Cardiac pacemaker in situ Z95.0 Uncontrolled hypertension I10 CPT Codes Cardiac Device Check - Cardiac Device 2: [id number] Cardiac Device Check, pacemaker dual lead ([id number])
[2024-04-19 14:01] VITALS: BP 160/62; PULSE 59
== END 2024-04-19 14:22 | disposition home or self-care (01) ==
PROVIDERS: PCP Internal Medicine; Visit Provider Nurse Practitioner Family
DX: I48.0 Paroxysmal atrial fibrillation (principal); Z95.0 Presence of cardiac pacemaker; I10 Essential (primary) hypertension
CPT/HCPCS: 93280; 99214

== ENCOUNTER → 2024-04-19 13:03 | Outpatient (BNVA) | payer OTHER, SELFPAY | PROVIDERS: PCP Internal Medicine; Visit Provider Nurse Practitioner Family | DX: I48.0 Paroxysmal atrial fibrillation (principal); I10 Essential (primary) hypertension; Z45.018 Encounter for adjustment and management of other part of cardiac pacemaker | CPT/HCPCS: 93280; 99212 ==

== ENCOUNTER → 2024-06-29 23:59 | Outpatient (BNV) | payer OTHER, SELFPAY ==
--- NOTE | 2024-07-05 08:54 | MHC.OFFVIS ---
Intake Visit Reasons: Remote device check- [facility] Allergies No Known Allergies Allergy (Verified 04/19/24 13:59) PFSH Medical History Cardiac pacemaker in situ Tricuspid regurgitation GERD (gastroesophageal reflux disease) Depression with anxiety Diverticulosis Obesity Nephropathy Neuropathy Retinopathy Iron deficiency anemia Hypercalcemia Hypothyroidism CKD stage G3b/A3, GFR 30-44 and albumin creatinine ratio >300 mg/g Breast cancer Basal cell carcinoma Hypertension Hyperlipidemia Diabetes mellitus type 2 in obese Surgical History Hx of left cataract extraction H/O lumpectomy Family History Mother Esophageal cancer Family/Other No problems noted. Father Lung cancer Social History Household Members: Family Housing: Apartment Do you presently have visiting nurse or other home services: No Patient Tobacco Use Status: Never used Tobacco Second Hand Smoke Exposure: No service: No Office Procedures Cardiac Device Check Cardiac Device Check Details: Remote pacemaker report generated 06/29/2024. Pacemaker function is adequate. Total burden of atrial fibrillation 5.6% [id number] Cardiac Device Interrogation, pacemaker Procedure code (CPT) selection complete Assessment & Plan Assessment & Plan (1) Cardiac pacemaker in situ: Code(s): Z95.0 - Presence of cardiac pacemaker Category: Medical Plan: See above Coding Level of Care Code Procedure Only Diagnoses Cardiac pacemaker in situ Z95.0 CPT Codes Cardiac Device Check - Cardiac Device 12: [id number] Cardiac Device Interrogation, pacemaker ([id number])
== END ==
PROVIDERS: PCP Internal Medicine; Visit Provider Internal Medicine Cardiovascular Disease
DX: I48.91 Unspecified atrial fibrillation (principal); Z95.0 Presence of cardiac pacemaker
CPT/HCPCS: 93294

== ENCOUNTER → 2024-09-28 23:59 | Outpatient (BNV) | payer OTHER, SELFPAY ==
--- NOTE | 2024-09-30 13:23 | MHC.OFFVIS ---
Intake Visit Reasons: Remote device check- [facility] Allergies No Known Allergies Allergy (Verified 04/19/24 13:59) PFSH Medical History Cardiac pacemaker in situ Tricuspid regurgitation GERD (gastroesophageal reflux disease) Depression with anxiety Diverticulosis Obesity Nephropathy Neuropathy Retinopathy Iron deficiency anemia Hypercalcemia Hypothyroidism CKD stage G3b/A3, GFR 30-44 and albumin creatinine ratio >300 mg/g Breast cancer Basal cell carcinoma Hypertension Hyperlipidemia Diabetes mellitus type 2 in obese Surgical History Hx of left cataract extraction H/O lumpectomy Family History Mother Esophageal cancer Family/Other No problems noted. Father Lung cancer Social History Household Members: Family Housing: Apartment Do you presently have visiting nurse or other home services: No Patient Tobacco Use Status: Never used Tobacco Second Hand Smoke Exposure: No service: No Office Procedures Cardiac Device Check Cardiac Device Check Details: Remote pacemaker report generated 09/28/2024. Pacemaker function is adequate. Total burden of atrial fibrillation 5.2% [id number] Cardiac Device Interrogation, pacemaker Procedure code (CPT) selection complete Assessment & Plan Assessment & Plan (1) Cardiac pacemaker in situ: Code(s): Z95.0 - Presence of cardiac pacemaker Category: Medical Plan: See above Coding Level of Care Code Procedure Only Diagnoses Cardiac pacemaker in situ Z95.0 CPT Codes Cardiac Device Check - Cardiac Device 12: [id number] Cardiac Device Interrogation, pacemaker ([id number])
== END ==
PROVIDERS: PCP Internal Medicine; Visit Provider Internal Medicine Cardiovascular Disease
DX: I48.91 Unspecified atrial fibrillation (principal); Z95.0 Presence of cardiac pacemaker
CPT/HCPCS: 93294

== ENCOUNTER 2024-10-20 09:21 | Outpatient (AMB) | payer OTHER, SELFPAY ==
--- NOTE | 2024-10-20 09:33 | MHC.OFFVIS ---
Vital Signs 10/20/24 09:41 Height 5 ft 1 in Weight 224 lb 13.944 oz BMI 42.5 BP 118/60 Blood Pressure Location Lt brachial Position Sitting Pulse 60 Pulse Source Monitor Intake Visit Reasons: 6 mth f/up w/ st reza ck Liquid Floor And Wall Applier Required: Yes Liquid Floor And Wall Applier Services: [employer] Floor And Wall Applier Offered & Declined Accompanied by: Daughter Allergies No Known Allergies Allergy (Verified 04/19/24 13:59) Medication List - Last Reconciled 10/20/24 by Oneal Jennings MD acetaminophen 500 mg PO TID PRN amlodipine 10 mg PO DAILY apixaban (Eliquis) 5 mg PO BID 30 days atorvastatin 80 mg PO DAILY carvedilol (Coreg) 12.5 mg PO BID empagliflozin (Jardiance) 25 mg PO DAILY insulin glargine (Lantus Solostar U-100 Insulin) 30 units subcut BEDTIME insulin lispro (Humalog KwikPen (U-100) Insulin) 8 units subcut TIDWM levothyroxine 88 mcg PO DAILY@0600 losartan 100 mg PO DAILY 90 days torsemide 10 mg PO DAILY HPI Comments Details: Ebony comes for follow-up. She has been doing well from cardiac perspective, accompanied by her daughter. However she does not exercise much but she is able to do her day-to-day activity level without any issues. Denies any exertional chest pain or shortness of breath. Denies any orthopnea, PND, leg edema. Denies any lightheadedness, syncope. Denies any prolonged palpitation. No exertional chest pain. She has had poor diabetes control and as per the daughter has a little dietary indiscretion. She said overall otherwise blood pressure is well controlled. No bleeding issues or neurologic events. [facility] Medical History Cardiac pacemaker in situ Tricuspid regurgitation GERD (gastroesophageal reflux disease) Depression with anxiety Diverticulosis Obesity Nephropathy Neuropathy Retinopathy Iron deficiency anemia Hypercalcemia Hypothyroidism CKD stage G3b/A3, GFR 30-44 and albumin creatinine ratio >300 mg/g Breast cancer Basal cell carcinoma Hypertension Hyperlipidemia Diabetes mellitus type 2 in obese Surgical History Hx of left cataract extraction H/O lumpectomy Family History Mother Esophageal cancer Family/Other No problems noted. Father Lung cancer Social History Household Members: Family Housing: Apartment Do you presently have visiting nurse or other home services: No Patient Tobacco Use Status: Never used Tobacco Second Hand Smoke Exposure: No service: No Review of Systems Const Denies weakness ENT Denies dizziness Card Denies chest pain, Denies chest pain with activity, Denies syncope, Denies rapid heart rate, Denies pedal edema, Denies edema, Denies leg edema, Denies lightheadedness, Denies palpitations, Denies dyspnea, Denies dyspnea on exertion and Denies orthopnea Resp Denies cough, Denies dyspnea and Denies dyspnea on exertion GI Denies hematochezia and Denies change in stool character Musc Denies abnormal gait, Denies muscle cramps, Denies muscle weakness, Denies numbness, Denies radiating pain into limb and Denies tingling Neuro Denies abnormal gait, Denies dizziness, Denies syncope, Denies numbness, Denies tingling and Denies weakness Endo Denies palpitations Physical Exam Vital Signs: Last Vital Signs Pulse 60 10/20/24 09:41 BP 118/60 10/20/24 09:41 BMI result Body Mass Index 42.5 Const General: cooperative, healthy appearing, comfortable and no acute distress Orientation/consciousness: patient oriented x3 Neck Neck: Yes normal visual inspection and Yes no JVD Resp Effort & Inspection: normal respiratory effort Auscultation: clear to auscultation bilaterally, no crackles, no rales, no rhonchi and no wheezes Cardio Jugular venous distension: no JVD Rate: regular rate Rhythm: regular rhythm Heart sounds: S1 normal heart sound present, S2 normal heart sound present, no murmurs and no rubs Neuro General: patient oriented x3 Extrem General: Yes normal to inspection and No no pedal edema Psych Appearance: grossly normal Mental Status: mental status grossly normal Speech and movement: Normal speech and movement present Office Procedures Cardiac Device Check Cardiac Device Check Details: Dual-chamber [employer] pacemaker in place. Programmed in DDDR at 60 beats per minute. Atrial pacing 89% of time. Ventricular pacing 81% time. Atrial fibrillation burden about 5.3%. Atrial ventricular pacing thresholds adequate and in auto capture mode. Atrial ventricular sensing is adequate. Pacing lead impedance is stable. Battery life is at 6.5 years [id number] Cardiac Device Check, pacemaker dual lead Procedure code (CPT) selection complete EKG Details: EKG shows atrial paced with intermittent dual AV paced rhythm. With upper [place] conduction she has underlying right bundle-branch block with deep T-wave inversions due to post V pace T-wave memory [id number], Complete Assessment & Plan Assessment & Plan (1) Cardiac pacemaker in situ: Code(s): Z95.0 - Presence of cardiac pacemaker Category: Medical Plan: Cardiac pacemaker in-situ with large burden of pacing in the atrium and the ventricle. Pacemaker is working well. Will continue monitor remotely every 3 months and follow up in the clinic in 6 months time. (2) Paroxysmal atrial fibrillation: Code(s): I48.0 - Paroxysmal atrial fibrillation Category: Medical Plan: Paroxysmal atrial fibrillation with total burden of 5.3%. No significant symptoms related to it at this point time. Currently on full oral anticoagulation with Eliquis at 5 mg b.i.d.. Continue monitor renal function on a quarterly basis. Avoidance of stimulants was discussed. Will continue monitor atrial fibrillation burden. No indication for antiarrhythmic drug therapy at this point time. (3) (HFpEF) heart failure with preserved ejection fraction: Code(s): I50.30 - Unspecified diastolic (congestive) heart failure Category: Medical Plan: Heart failure preserved ejection fraction, clinically euvolemic and well compensated current torsemide dose. Continue aggressive blood pressure control which is currently well optimized importance of good blood pressure control was discussed. Continue aggressive diabetes management as well. Encouraged to participate in more aggressive weight loss program regular physical activity which should help with heart failure syndrome. This was discussed with her. Importance of daily weight monitoring avoidance of salt loading was discussed. Will follow up in the clinic in 6 months time, sooner p.r.n.. Thank you for allowing me to partake in her care Orders: Orders Basic Metabolic Panel Today I48.0 - Paroxysmal atrial fibrillation Coding Level of Care Code Est Pt Level 4 (07509) Complex EM visit Add On G2211 Diagnoses Cardiac pacemaker in situ Z95.0 Paroxysmal atrial fibrillation I48.0 (HFpEF) heart failure with preserved ejection fraction I50.30 CPT Codes Cardiac Device Check - Cardiac Device 2: [id number] Cardiac Device Check, pacemaker dual lead ([id number]) EKG - CPT: 75600-Podfimvehnnsgpzsj, Complete ([id number])
[2024-10-20 09:41] VITALS: BP 118/60; PULSE 60; BMI 42.5
== END 2024-10-20 10:24 | disposition home or self-care (01) ==
PROVIDERS: PCP Internal Medicine; Visit Provider Internal Medicine Cardiovascular Disease
DX: I48.0 Paroxysmal atrial fibrillation (principal); I50.30 Unspecified diastolic (congestive) heart failure; Z95.0 Presence of cardiac pacemaker
CPT/HCPCS: 93010; 93280; 99214; G2211

== ENCOUNTER 2024-10-20 09:21 | Outpatient (REF) | payer OTHER, SELFPAY ==
[2024-10-20 11:21] LABS: Anion Gap 11 (12-20); Blood Urea Nitrogen 33 mg/dL (9-16); Carbon Dioxide 25 mmol/L (22-29); Chloride 109 mmol/L (96-108); Estimated Glomerular Filt Rate 33; Glucose Random 63 mg/dL (60-115); Potassium 4.8 mmol/L (3.3-5.1); Sodium 140 mmol/L (135-145)
== END 2024-10-20 09:22 | disposition home or self-care (01) ==
LOC: HO.LAB 09:21
PROVIDERS: PCP Internal Medicine; Visit Provider Internal Medicine Cardiovascular Disease
DX: I48.0 Paroxysmal atrial fibrillation (principal); Z95.0 Presence of cardiac pacemaker; I50.30 Unspecified diastolic (congestive) heart failure
CPT/HCPCS: 36415; 80048; 93005; 93280; 99212

== ENCOUNTER → 2024-12-28 23:59 | Outpatient (BNV) | payer OTHER, SELFPAY ==
--- NOTE | 2024-12-28 14:49 | MHC.OFFVIS ---
Intake Visit Reasons: Remote device check- [facility] Allergies No Known Allergies Allergy (Verified 04/19/24 13:59) PFSH Medical History Cardiac pacemaker in situ Tricuspid regurgitation GERD (gastroesophageal reflux disease) Depression with anxiety Diverticulosis Obesity Nephropathy Neuropathy Retinopathy Iron deficiency anemia Hypercalcemia Hypothyroidism CKD stage G3b/A3, GFR 30-44 and albumin creatinine ratio >300 mg/g Breast cancer Basal cell carcinoma Hypertension Hyperlipidemia Diabetes mellitus type 2 in obese Surgical History Hx of left cataract extraction H/O lumpectomy Family History Mother Esophageal cancer Family/Other No problems noted. Father Lung cancer Social History Household Members: Family Housing: Apartment Do you presently have visiting nurse or other home services: No Patient Tobacco Use Status: Never used Tobacco Second Hand Smoke Exposure: No service: No Office Procedures Cardiac Device Check Cardiac Device Check Details: Remote pacemaker report generated 12/28/2024. Pacemaker function is adequate. Intermittent episodes of atrial fibrillation noted with total burden of 5% [id number] Cardiac Device Interrogation, pacemaker Procedure code (CPT) selection complete Assessment & Plan Assessment & Plan (1) Cardiac pacemaker in situ: Code(s): Z95.0 - Presence of cardiac pacemaker Category: Medical Plan: See above Coding Level of Care Code Procedure Only Diagnoses Cardiac pacemaker in situ Z95.0 CPT Codes Cardiac Device Check - Cardiac Device 12: [id number] Cardiac Device Interrogation, pacemaker ([id number])
== END ==
PROVIDERS: PCP Internal Medicine; Visit Provider Internal Medicine Cardiovascular Disease
DX: I48.91 Unspecified atrial fibrillation (principal); Z95.0 Presence of cardiac pacemaker
CPT/HCPCS: 93294

== ENCOUNTER → 2025-03-29 23:59 | Outpatient (BNV) | payer OTHER, SELFPAY ==
--- NOTE | 2025-03-29 17:03 | MHC.OFFVIS ---
Intake Visit Reasons: Remote device check- [facility] Allergies No Known Allergies Allergy (Verified 04/19/24 13:59) PFSH Medical History Cardiac pacemaker in situ Tricuspid regurgitation GERD (gastroesophageal reflux disease) Depression with anxiety Diverticulosis Obesity Nephropathy Neuropathy Retinopathy Iron deficiency anemia Hypercalcemia Hypothyroidism CKD stage G3b/A3, GFR 30-44 and albumin creatinine ratio >300 mg/g Breast cancer Basal cell carcinoma Hypertension Hyperlipidemia Diabetes mellitus type 2 in obese Surgical History Hx of left cataract extraction H/O lumpectomy Family History Mother Esophageal cancer Family/Other No problems noted. Father Lung cancer Social History Household Members: Family Housing: Apartment Do you presently have visiting nurse or other home services: No Patient Tobacco Use Status: Never used Tobacco Second Hand Smoke Exposure: No service: No Office Procedures Cardiac Device Check Cardiac Device Check Details: Remote pacemaker report generated 03/29/2025. Pacemaker function is adequate [id number] Cardiac Device Interrogation, pacemaker Procedure code (CPT) selection complete Assessment & Plan Assessment & Plan (1) Cardiac pacemaker in situ: Code(s): Z95.0 - Presence of cardiac pacemaker Category: Medical Plan: See above Coding Level of Care Code Procedure Only Diagnoses Cardiac pacemaker in situ Z95.0 CPT Codes Cardiac Device Check - Cardiac Device 12: [id number] Cardiac Device Interrogation, pacemaker ([id number])
== END ==
PROVIDERS: PCP Internal Medicine; Visit Provider Internal Medicine Cardiovascular Disease
DX: Z45.018 Encounter for adjustment and management of other part of cardiac pacemaker (principal)
CPT/HCPCS: 93294

== ENCOUNTER 2025-05-24 08:48 | Outpatient (REF) | payer OTHER, SELFPAY ==
[2025-05-24 10:26] LABS: B Type Natriuretic Peptide 395 pg/mL (<100)
[2025-05-24 10:53] LABS: Anion Gap 12 (12-20); Blood Urea Nitrogen 50 mg/dL (9-16); Calcium 9.0 mg/dL (8.4-10.2); Carbon Dioxide 22 mmol/L (22-29); Chloride 113 mmol/L (96-108); Estimated Glomerular Filt Rate 31; Potassium 4.9 mmol/L (3.3-5.1); Sodium 142 mmol/L (135-145)
== END 2025-05-24 08:49 | disposition home or self-care (01) ==
LOC: HO.LAB 08:48
PROVIDERS: PCP Internal Medicine; Visit Provider Internal Medicine Cardiovascular Disease
DX: I13.0 Hypertensive heart and chronic kidney disease with heart failure and stage 1 through stage 4 chronic kidney disease, or unspecified chronic kidney disease (principal); I50.32 Chronic diastolic (congestive) heart failure; E11.22 Type 2 diabetes mellitus with diabetic chronic kidney disease; N18.9 Chronic kidney disease, unspecified; E66.01 Morbid (severe) obesity due to excess calories; I48.0 Paroxysmal atrial fibrillation; Z95.0 Presence of cardiac pacemaker; Z79.01 Long term (current) use of anticoagulants; Z79.4 Long term (current) use of insulin; Z79.84 Long term (current) use of oral hypoglycemic drugs; Z79.899 Other long term (current) drug therapy
CPT/HCPCS: 36415; 80048; 83880; 93280; 99212

== ENCOUNTER 2025-05-24 08:48 | Outpatient (AMB) | payer OTHER, SELFPAY ==
[2025-05-24 08:55] VITALS: BP 134/80; PULSE 68; BMI 42.9
--- NOTE | 2025-05-24 08:55 | MHC.OFFVIS ---
Vital Signs 05/24/25 08:55 Height 5 ft 1 in Weight 227 lb 1.218 oz BMI 42.9 BP 134/80 Blood Pressure Location Lt brachial Position Sitting Pulse 68 Intake Visit Reasons: 6 month f/u with pacer ck Intake Note: 6 month follow-up with [facility] c/o pulsing in ears at times Environmental Studies Faculty Member Required: Yes Environmental Studies Faculty Member Services: Environmental Studies Faculty Member Offered & Declined Instrument Technician Apprentice: Instrument Technician Apprentice Present Accompanied by: Daughter Allergies No Known Allergies Allergy (Verified 04/19/24 13:59) Medication List - Last Reconciled 05/24/25 by Oneal Jennings MD acetaminophen 500 mg PO TID PRN amlodipine 10 mg PO DAILY apixaban (Eliquis) 5 mg PO BID 30 days atorvastatin 80 mg PO DAILY empagliflozin (Jardiance) 25 mg PO DAILY insulin glargine (Lantus Solostar U-100 Insulin) 30 units subcut BEDTIME insulin lispro (Humalog KwikPen (U-100) Insulin) 8 units subcut TIDWM levothyroxine 125 mcg PO DAILY losartan 100 mg PO DAILY 90 days metoprolol succinate ER 100 mg PO DAILY torsemide 20 mg PO DAILY HPI Comments Details: Ebony comes for follow-up, accompanied by her daughter. She has been doing well from cardiac perspective. She has been taking all her medications. No hospitalization related to heart failure. Denies any prolonged palpitation irregular heartbeat. Denies any orthopnea, PND, worsening leg edema. No change in weight. Does get short of breath after walking about 20 minutes in his store. No exertional chest pain. [facility] Medical History Cardiac pacemaker in situ Tricuspid regurgitation GERD (gastroesophageal reflux disease) Depression with anxiety Diverticulosis Obesity Nephropathy Neuropathy Retinopathy Iron deficiency anemia Hypercalcemia Hypothyroidism CKD stage G3b/A3, GFR 30-44 and albumin creatinine ratio >300 mg/g Breast cancer Basal cell carcinoma Hypertension Hyperlipidemia Diabetes mellitus type 2 in obese Surgical History Hx of left cataract extraction H/O lumpectomy Family History Mother Esophageal cancer Family/Other No problems noted. Father Lung cancer Social History Household Members: Family Housing: Apartment Do you presently have visiting nurse or other home services: No Patient Tobacco Use Status: Never used Tobacco Second Hand Smoke Exposure: No service: No Review of Systems Const Denies chills, Denies fatigue, Denies fever(s), Denies frequent falls, Denies weakness, Denies weight gain and Denies weight loss ENT Denies dizziness Card Denies chest pain, Denies leg edema, Denies lightheadedness, Denies palpitations, Denies dyspnea, Denies dyspnea on exertion, Denies orthopnea and Denies other (loss of consciousness) Resp Denies cough, Denies dyspnea and Denies dyspnea on exertion GI Denies hematochezia and Denies change in stool character Musc Denies abnormal gait, Denies muscle weakness, Denies numbness, Denies radiating pain into limb and Denies tingling Neuro Denies abnormal gait, Denies dizziness, Denies frequent falls, Denies numbness, Denies tingling and Denies weakness Endo Denies fatigue and Denies palpitations Physical Exam Vital Signs: Last Vital Signs Pulse 68 05/24/25 08:55 BP 134/80 05/24/25 08:55 BMI result Body Mass Index 42.9 Const General: cooperative, healthy appearing, comfortable and no acute distress Nutritional Appearance: obese Orientation/consciousness: patient oriented x3 Neck Neck: Yes normal visual inspection and Yes no JVD Resp Effort & Inspection: normal respiratory effort Auscultation: clear to auscultation bilaterally, no crackles, no rales, no rhonchi and no wheezes Cardio Jugular venous distension: no JVD Rate: regular rate Rhythm: regular rhythm Heart sounds: S1 normal heart sound present, S2 normal heart sound present, no murmurs and no rubs Neuro General: patient oriented x3 Extrem General: Yes clubbing, Yes cyanosis and Yes edema (2+ around the ankle) Psych Appearance: grossly normal Mental Status: mental status grossly normal Speech and movement: Normal speech and movement present Office Procedures Cardiac Device Check Cardiac Device Check Details: Dual-chamber [facility] pacemaker in place. Programmed in DDDR at 60 beats per minute. Atrial pacing 86% of the time. Ventricular pacing 89% of time. No atrial fibrillation noted. Noted frequent PACs/PVCs on the monitor. Atrial ventricular sensing is adequate. Atrial ventricular capture thresholds adequate and in auto capture mode. Pacing lead impedance is stable. Battery life is at about 5 and half to 5.9 years [id number] Cardiac Device Check, pacemaker dual lead Procedure code (CPT) selection complete Assessment & Plan Assessment & Plan (1) (HFpEF) heart failure with preserved ejection fraction: Code(s): I50.30 - Unspecified diastolic (congestive) heart failure Category: Medical Plan: Heart failure preserved ejection fraction, clinically euvolemic and well compensated. Current comorbidities include morbid obesity, chronic kidney disease as well as paroxysmal atrial fibrillation which is overall suppressed and deconditioning. Encouraged to increase activity level as tolerated. Currently appears to be euvolemic with no central venous congestion. Will obtain BNP today. Continue aggressive blood pressure control. Continue current diuretic regimen. Daily weight monitoring avoidance salt loading was discussed additional diuretics as need be. Continue Jardiance therapy as well. Continue rhythm control approach. (2) Paroxysmal atrial fibrillation: Code(s): I48.0 - Paroxysmal atrial fibrillation Category: Medical Plan: Paroxysmal atrial fibrillation has remained suppressed and currently on metoprolol therapy. No indication for antiarrhythmic drug therapy at this point time. Currently on full oral anticoagulation Eliquis which will be continued. Semi annual renal function test should be pursued. Avoidance of stimulants was discussed. Will continue monitor pacer telemetry. (3) Cardiac pacemaker in situ: Code(s): Z95.0 - Presence of cardiac pacemaker Category: Medical Plan: Cardiac pacemaker in-situ, working well. Reprogrammed for adequate functioning. Will follow up remotely every 3 months. Follow up in the clinic in 6 months time. Follow up in the clinic in 6 months time, sooner p.r.n.. Thank you for allowing me to partake in her care Orders: Orders B Type Natriuretic Peptide Today I50.30 - Unspecified diastolic (congestive) heart failure CA echo transthoracic complete Today I50.30 - Unspecified diastolic (congestive) heart failure Basic Metabolic Panel Today I50.30 - Unspecified diastolic (congestive) heart failure Coding Level of Care Code Est Pt Level 4 (82739) Complex EM visit Add On G2211 Diagnoses (HFpEF) heart failure with preserved ejection fraction I50.30 Paroxysmal atrial fibrillation I48.0 Cardiac pacemaker in situ Z95.0 CPT Codes Cardiac Device Check - Cardiac Device 2: [id number] Cardiac Device Check, pacemaker dual lead ([id number])
--- OUTSIDE RECORDS SUMMARY | 2025-05-24 09:06 | XMS_ITS | Clinical Summary ---
Author Organization [facility] Address [address] [place] [address] Care Team Providers Care Hemodialysis Patient Care Specialist Name Role Phone Sarah Beth Sanford MD Primary Care Provider [phone] Allergies No known active allergies Medications Medication Sig Dispensed Refills Start Date End Date Status amLODIPine (NORVASC) tablet 10 mg Take 1 tablet (10 mg total) by mouth daily. 0 04/06/2023 Active atorvastatin (LIPITOR) tablet 80 mg Take 1 tablet (80 mg total) by mouth daily. 0 05/04/2023 Active Trulicity 1.5 MG/0.5ML subcutaneous pen-injector USE ONCE A WEEK DIRECTED 0 04/07/2023 Active Jardiance 25 MG TABS TAKE 1 TABLET BY MOUTH EVERY DAY IN THE MORNING 0 06/10/2023 Active Lantus SoloStar 100 UNIT/ML injection INJECT 25 UNITS SUBCUTANEOUS AT BEDTIME 0 06/04/2023 Active levothyroxine (SYNTHROID) tablet 88 mcg Take 1 tablet (88 mcg total) by mouth daily. 0 05/27/2023 Active torsemide (DEMADEX) 10 MG tablet Take 1 tablet (10 mg total) by mouth daily. 0 05/04/2023 Active torsemide (DEMADEX) 20 MG tablet Take 1 tablet (20 mg total) by mouth daily. 0 04/07/2023 Active triamcinolone (KENALOG) 0.5 % cream APPLY EXTERNAL TWICE A DAY 0 04/07/2023 Active apixaban (ELIQUIS) 5 MG TABS tablet Take by mouth every 12 (twelve) hours. 0 Active Active Problems No known active problems Family History Medical History Relation Name Comments Cancer Father lung Cancer Mother esophageal Cancer Sister breast Relation Name Status Comments Father Mother Sister Social History Tobacco Use Types Packs/Day Years Used Date Smoking Tobacco: Never Smokeless Tobacco: Never Tobacco Cessation:Counseling Given: Not Answered Alcohol Use Standard Drinks/Week Comments Not Currently 0 (1 standard drink = 0.6 oz pur e alcohol) Sex and Gender Information Value Date Recorded Sex Assigned at Not on file Gender Identity Not on file Sexual Orientation Not on file Job Start Date Occupation Industry Not on file Not on file Not on file Last Filed Vital Signs Vital Sign Reading Time Taken Comments Blood Pressure 172/54 03/30/2024 9:38 AM EDT Pulse 60 03/30/2024 9:38 AM EDT Temperature 36.2 C (97.1 F) 03/30/2024 9:38 AM EDT Respiratory Rate - - Oxygen Saturation 99% 03/30/2024 9:38 AM EDT Inhaled Oxygen Concentration - - Weight 95.3 kg (210 lb 3.2 oz) 03/30/2024 9:38 A M EDT Height 152.4 cm (5') 09/29/2023 9:53 AM EST Body Mass Index 41.05 09/29/2023 9:53 AM EST Plan of Treatment Health Maintenance Due Date Last Done Comments Hepatitis C Screening 1950 COVID-19 Vaccine (#1) [birth year]10/1951 Depression Screening 1960 BMI Counseling 1966 Preventative Health Evaluation 1966 Shingrix-Zoster Vaccine (1 of 2) 1998 Fall Risk Assessment 2013 Osteoporosis Screening (DEXA Scan) 2013 Pneumococcal Vaccine (3 of 3 - PPSV23 or PCV20) 02/14/2020 02/13/2015, 12/19/2006 RSV Adult > 60+ Yrs or (1 - 1-dose 75+ series) 2023 DTap / Tdap / Td (2 - Tdap) 11/23/2023 11/23/2013 Influenza Vaccine (#1) 2025 , 08/24/2018, 08/12/2018, Additional history exists Hepatitis B Vaccines Aged Out No long er eligible based on patient's age to complete this topic RSV Ped < 20 months Aged Out No longe r eligible based on patient's age to complete this topic Care Teams Hemodialysis Patient Care Specialist Relationship Specialty Start Date End Date Sarah Beth Sanford MD [address] [phone] PCP - General Internal Medicine 06/18/23
--- OUTSIDE RECORDS SUMMARY | 2025-05-24 09:06 | XMS_ITS | Encounter Summary ---
Author Organization [facility] Address [address] [place] [address] Care Team Providers Care Sealer Sander Name Role Phone Sarah Beth Sanford MD Primary Care Provider [phone] Encounter Details Date Type Department Care Team (Late st Contact Info) Description 01/31/2025 Lab Requisition [facility] - Main Lab [address] [facility] [place] [address] Sarah Beth Sanford MD [address] [place] [address] [place] [address] Hyperparathyroidism, unspecified (CMS/HCC V24); Hypothyroidism, unspecified; Type 2 diabetes mellitus with hyperglycemia (CMS/HCC V24, CMS/HCC V28) Social History Tobacco Use Types Packs/Day Years Used Date Smoking Tobacco: Never Smokeless Tobacco: Never Alcohol Use Standard Drinks/Week Comments No 0 (1 standard drink = 0.6 oz pur e alcohol) Comments Unknown Sex and Gender Information Value Date Recorded Sex Assigned at Female 02/15/2025 8:56 AM EDT Legal Sex Female 8:26 AM EST Gender Identity Female 02/15/2025 8:56 AM EDT Sexual Orientation Straight 02/15/2025 8: 56 AM EDT documented as of this encounter Plan of Treatment Upcoming Encounters Date Type Department Care Team (Late Contact Info) Description 07/06/2025 9:00 AM EDT Office Visit Endocrinology - [address] [address] Margo Araiza MD [address] [place] [address] 08/04/2025 9:00 AM EDT Office Visit [facility] Hematology Oncology [address] [place] [address] Ghislaine Dia MD [address] [place] [phone] Scheduled Orders Name Type Priority Associated Diagnoses Orde r Schedule Parathyroid hormone intact Lab Routine Hyperparathyroidism, unspecified ([facility]) Ordered: 01/31/2025 Thyroid stimulating hormone Lab Routine Hypothyroidism, unspecified Ordered: 01/31/2025 Comprehensive metabolic panel Lab Routine Type 2 diabetes mellitus with hyperglycemia ([facility]) Ordered: 01/31/2025 Hemoglobin A1c Lab Routine Type 2 diabetes mellitus with hyperglycemia ([facility]) Ordered: 01/31/2025 documented as of this encounter Visit Diagnoses Diagnosis Hyperparathyroidism, unspecified (CMS/HCC V24) Hyperparathyroidism, unspecified Hypothyroidism, unspecified Type 2 diabetes mellitus with hyperglycemia (CMS/HCC V24, CMS/HCC V28) documented in this encounter Care Teams Sealer Sander Relationship Specialty Start Date End Date Sarah Beth Sanford MD [address] [place] [address] [place] [address] PCP - General 06/18/23 documented as of this encounter
--- OUTSIDE RECORDS SUMMARY | 2025-05-24 09:06 | XMS_ITS | Clinical Summary ---
Author Organization [facility] Address [address] [address] Phone Care Team Providers Care Fermenter Champagne Name Role Phone Sarah Beth Sanford MD Primary Care Provider Allergies No known active allergies Medications insulin glargine (Lantus) 100 UNIT/ML injection Inject 35 Units under the skin 1 (one) time each day 12/03/2013 Active insulin regular (HumuLIN,NovoLI N) 100 UNIT/ML injection Active levothyroxine sodium (TIROSINT) 88 MCG capsule Take 1 tablet by mouth 1 (one) time each day 07/14/2014 Active torsemide (DEMADEX) 10 MG tablet Take 1 tablet (10 mg total) by mouth 1 (one) time each day 90 tablet 3 12/10/2021 Active atorvastatin (LIPITOR) 80 MG tablet Take 80 mg by mouth 1 (one) time each day 12/01/2021 Active Jardiance 25 MG tablet Take 1 tablet by mouth 1 (one) time each day in the morning 12/26/2021 Active acetaminophen (TYLENOL) 500 MG tablet Take 500 mg by mouth 3 (three) times a day if needed for mild pain Active Eliquis 5 MG tablet Take 5 mg by mouth in the morning and 5 mg in the evening. 01/15/2024 Active carvedilol (COREG) 12.5 MG tablet Take 12.5 mg by mouth in the morning and 12.5 mg in the evening. Take with meals. 05/10/2024 Active Dulaglutide (Trulicity) 1.5 MG/0.5ML solution pen-injector USE ONCE A WEEK DIRECTED 04/07/2023 Active losartan (COZAAR) 100 MG tablet Take 100 mg by mouth 1 (one) time each day Active amLODIPine (NORVASC) 10 MG tablet Take 10 mg by mouth 1 (one) time each day Active cinacalcet (SENSIPAR) 60 MG tablet Take 60 mg by mouth 1 (one) time each day 12/30/2024 Active Active Problems Problem Noted Date Diagnosed Date Monoclonal gammopathy of uncertain significance 09/29/2024 Stage 3b chronic kidney disease 07/30/2022 Dyslipidemia 01/28/2022 Malignant tumor of breast 01/28/2022 Overview (01/28/2022): Tamoxifen completed in June 2010, Followed by [facility] Osteopenia 01/28/2022 Tricuspid valve regurgitation 01/28/2022 Renal stone 01/28/2022 Hypertension 01/28/2022 Secondary hyperparathyroidism 04/30/2021 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 Hyperkalemia 04/30/2021 Proteinuria, not otherwise specified 04/30/2021 Osteoporosis 04/30/2021 Type 2 diabetes mellitus without complication Hypercalcemia 04/26/2021 Retinopathy due to diabetes mellitus 08/17/2019 Overview (07/25/2024): [facility] Resolved Problems Problem Noted Date Diagnosed Date Resolved Date Basal cell carcinoma of skin 01/28/2022 07/30/2022 Chronic kidney disease stage 3 due to type 2 diabetes mellitus 01/28/2022 07/30/2022 Disorder of rotator cuff 01/28/2022 Diverticular disease 01/28/2022 022 Gastroesophageal reflux disease 01/28/2022 07/30/2022 Hypothyroidism 01/28/2022 07/30/2022 Internal hemorrhoids 01/28/2022 022 Iron deficiency anemia 01/28/202207/30 Screening status 01/28/2022 07/30/2022 Type 2 diabetes mellitus 01/28/2022 Polycystic kidney, not otherwise specified 04/30/2021 01/28/2022 Essential hypertension 04/26/202107/30 Immunizations Immunization Administration Dates Next Due DTaP 11/23/2013 Influenza Split High Dose Pr eservative Free IM 07/23/2019,08/24/2018,09/18/2017 Influenza, Unspecified 08/12/2018,08/19/2016 Pneumococcal Conjugate 13-Valent 02/13/2015 Pneumococcal Polysaccharide 12/19/2006 Zoster 12/08/2014 Family History Medical History Relation Comments Cancer Father Cancer Mother Relation Status Comments Father Mother Social History Tobacco Use Types Packs/Day Years Used Date Smoking Tobacco: Never Smokeless Tobacco: Never Alcohol Use Standard Drinks/Week Comments No 0 (1 standard drink = 0.6 oz pur e alcohol) Comments Unknown Sex and Gender Information Value Date Recorded Sex Assigned at Not on file Legal Sex Female 5:11 PM EST Gender Identity Not on file Sexual Orientation Not on file Last Filed Vital Signs Vital Sign Reading Time Taken Comments Blood Pressure 134/78 01/25/2025 7:59 AM EDT Pulse 60 01/25/2025 7:59 AM EDT Temperature - - Respiratory Rate - - Oxygen Saturation 99% 01/25/2025 7:59 AM EDT Inhaled Oxygen Concentration - - Weight 100 kg (220 lb 6.4 oz) 01/25/2025 7:59 AM EDT Height 160 cm (5' 3 ) 07/26/2024 8:08 AM EDT Body Mass Index 39.04 07/26/2024 8:08 AM EDT Plan of Treatment Upcoming Encounters Date Type Department Care Team (Late st Contact Info) Description 08/03/2025 8:20 AM EDT Office Visit [facility] [address] [address] Bobby Cannon MD [address] [address] Health Maintenance Due Date Last Done Comments Pneumococcal Vaccine: 50+ Years (3 of 3 - PCV20 or PCV21) 04/10/2015 02/13/2015, 12/19/2006 Diabetes: Ophthalmology Exam 04/30/2021 Diabetes: Pedal Pulse Checked 04/30/2021 Diabetes: Sensory Foot Exam 04/30/2021 Diabetes: Visual Foot Exam 04/30/2021 Diabetes: Hemoglobin A1C 06/08/2021 03/09/2021 Influenza Vaccine (#1) 2025 9, 08/24/2018, 08/12/2018, Additional history exists Pneumococcal Vaccine: Peds (0 to 5 Years) and At-Risk Patients (6 to 49 Years) Discontinued 02/13/2015, 12/19/2006 Hepatitis B Vaccine Aged Out No longe r eligible based on patient's age to complete this topic Procedures Procedure Name Priority Date/Time Associated Diagnosis Comments EXT RESULT ENTRY Routine 03/09/2021 from Last 3 Months or Most Recently Relevant to Health Maintenance Results * (ABNORMAL) EXT RESULT ENTRY (03/09/2021) WBC 6.4 3.3 - 10.0 10*3/ML Red Blood Cell Count 4.29 Hemoglobin 12.8 12.0 - 16.0 Hematocrit 40.6 36.0 - 46.0 Platelets 232 150 - 399 10*3/UL MCV 94.6 82.0 - 108.0 Neutrophils Absolute 3.00 1.30 - 8.30 10*3/UL Lymphocytes Absolute 2.40 1.40 - 2.90 10*3/UL Monocytes Absolute 0.60 0.20 - 0.80 10*3/UL Eosinophils Absolute 0.40 0.20 - 0.70 10*3/UL Sodium 140 137 - 147 Potassium 4.6 3.4 - 5.5 Chloride 104 99 - 108 Bicarbonate (CO2) 28 22 - 30 mmol/L Anion Gap 8 <=30 MMOL/L Glucose 66 60 - 200 BUN 42(A) 4 - 21 mg/dL Creatinine 1.50(A) 0.50 - 1.10 mg/dL Total Protein 7.2 6.4 - 8.2 G/DL Albumin 3.9 3.5 - 5.0 g/dL Calcium 11.0(A) 8.7 - 10.7 mg/dL eGFR Non-Afr Djib[place]ian 34 eGFR 40 Total Bilirubin 0.3 MG/DL ALT (SGPT) 14 U/L AST (SGOT) 14 U/L Alkaline Phosphatase 112 U/L Hemoglobin A1C 8.3(A) 4.0 - 6.0 Triglycerides 117 40 - 160 Cholesterol 293(A) 0 - 200 HDL 64 35 - 70 MG/DL LDL Calculated 206(A) 0 - 160 mg/dL 03/09/2021 us Historical Provider LAB BLOOD ORDERABLES Kourtney l Result from Last 3 Months or Most Recently Relevant to Health Maintenance Insurance [facility] Care Teams Fermenter Champagne Relationship Specialty Start Date End Date Sarah Beth Sanford MD [address] [place] [address] PCP - General Internal Medicine 04/30/21
== END 2025-05-24 09:14 | disposition home or self-care (01) ==
LOC: HO.HCS 08:49
PROVIDERS: PCP Internal Medicine; Visit Provider Internal Medicine Cardiovascular Disease
DX: I50.30 Unspecified diastolic (congestive) heart failure (principal); I48.0 Paroxysmal atrial fibrillation; Z95.0 Presence of cardiac pacemaker
CPT/HCPCS: 93280; 99214; G2211

== ENCOUNTER → 2025-06-28 23:59 | Outpatient (BNV) | payer OTHER, SELFPAY ==
--- NOTE | 2025-07-05 16:47 | MHC.OFFVIS ---
Intake Visit Reasons: Remote device check- [facility] Allergies No Known Allergies Allergy (Verified 04/19/24 13:59) PFSH Medical History Cardiac pacemaker in situ Tricuspid regurgitation GERD (gastroesophageal reflux disease) Depression with anxiety Diverticulosis Obesity Nephropathy Neuropathy Retinopathy Iron deficiency anemia Hypercalcemia Hypothyroidism CKD stage G3b/A3, GFR 30-44 and albumin creatinine ratio >300 mg/g Breast cancer Basal cell carcinoma Hypertension Hyperlipidemia Diabetes mellitus type 2 in obese Surgical History Hx of left cataract extraction H/O lumpectomy Family History Mother Esophageal cancer Family/Other No problems noted. Father Lung cancer Social History Household Members: Family Housing: Apartment Do you presently have visiting nurse or other home services: No Patient Tobacco Use Status: Never used Tobacco Second Hand Smoke Exposure: No service: No Office Procedures Cardiac Device Check Cardiac Device Check Details: Remote pacemaker report generated 06/28/2025. Pacemaker function is adequate [id number] Cardiac Device Interrogation, pacemaker Procedure code (CPT) selection complete Assessment & Plan Assessment & Plan (1) Cardiac pacemaker in situ: Code(s): Z95.0 - Presence of cardiac pacemaker Category: Medical Plan: See above Coding Level of Care Code Procedure Only Diagnoses Cardiac pacemaker in situ Z95.0 CPT Codes Cardiac Device Check - Cardiac Device 12: [id number] Cardiac Device Interrogation, pacemaker ([id number])
== END ==
PROVIDERS: PCP Internal Medicine; Visit Provider Internal Medicine Cardiovascular Disease
DX: Z45.018 Encounter for adjustment and management of other part of cardiac pacemaker (principal)
CPT/HCPCS: 93294

== ENCOUNTER → 2025-08-03 13:10 | Outpatient (REF) | payer OTHER, SELFPAY ==
--- OUTSIDE RECORDS SUMMARY | 2025-08-03 08:20 | XMS_ITS | Encounter Summary ---
Author Organization [facility] Address [address] [phone] Phone Care Team Providers Care Builder'S Labourer Name Role Phone Sarah Beth Sanford MD Primary Care Provider [phone] Reason for Visit * Reason Comments Chronic Kidney Disease Encounter Details Date Type Department Care Team (Latest Contact Info) Description 08/03/2025 8:20 AM EDT Office Visit 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); Tricuspid valve regurgitation; Type 2 diabetes mellitus without complication (HCC) Social History Tobacco Use Types Packs/Day Years Used Date Smoking Tobacco: Never Smokeless Tobacco: Never Alcohol Use Standard Drinks/Week Comments No 0 (1 standard drink = 0.6 oz pur e alcohol) Comments Unknown Sex and Gender Information Value Date Recorded Sex Assigned at Not on file Legal Sex Female 5:11 PM EST Gender Identity Not on file Sexual Orientation Not on file documented as of this encounter Last Filed Vital Signs Vital Sign Reading Time Taken Comments Blood Pressure 180/80 08/03/2025 7:58 AM EDT Pulse 60 08/03/2025 7:58 AM EDT Temperature - - Respiratory Rate - - Oxygen Saturation 97% 08/03/2025 7:58 AM EDT Inhaled Oxygen Concentration - - Weight 100 kg (220 lb 6.4 oz) 08/03/2025 7:58 AM EDT Height - - Body Mass Index 39.04 07/26/2024 8:08 AM EDT documented in this encounter Progress Notes * Bobby Cannon MD - 08/03/2025 8:20 AM EDT [facility] Office Visit Patient Name: Ebony Camarillo, Female Date of : 1950, 74 y.o. Date: 08/03/2025 History of Present Illness Ebony Camarillo is a 74 y.o. female who is here for follow up of multiple medical problems including ckd, htn and hypercalcemia. Appears that she had her ptx surgery. Had routine labs 10 days ago and k was 6.2. We stopped her RAAS antagonism and had her repeat 1 week later and it was 5.1. Creatinine flu ctuating 1.5-1.9 baseline. The calcium levels seems better now. Vit d low. As per her usual self care she presents no home readings and cannot reconcile meds. Interim history since the last encounter was reviewed. No acute complaints were voiced. Denied chest pain, flank pain, hematuria, hemoptysis or fevers. All other systems were reviewed and negative. Available lab results were reviewed and discussed. Medication list was reviewed and discussed. Any available out of office blood pressure readings were reviewed and discussed. CV and Renal risk was assessed and discussed. 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) Secondary hyperparathyroidism (HCC) Vitamin D deficiency Past Surgical History Past Surgical History: Procedure Laterality Date CATARACT SURGERY and left eye surgery INSERT / REPLACE / REMOVE PACEMAKER 11/2023 TUBAL LIGATION Family History Family History Problem Relation Age of Onset Cancer Father Cancer Mother Social History Social History Tobacco Use Smoking status: Never Smokeless tobacco: Never Substance Use Topics Alcohol use: No Medication List Current Outpatient Medications Medication Sig Dispense Refill acetaminophen (TYLENOL) 500 MG tablet Take 500 mg by mouth 3 (three) times a day if needed for mildpain amLODIPine (NORVASC) 10 MG tablet Take 10 mg by mouth 1 (one) time each day atorvastatin (LIPITOR) 80 MG tablet Take 80 mg by mouth 1 (one) time each day Eliquis 5 MG tablet Take 5 mg by mouth in the morning and 5 mg in the evening. insulin glargine (Lantus) 100 UNIT/ML injection Inject 35 Units under the skin 1 (one) time each day insulin regular (HumuLIN,NovoLIN) 100 UNIT/ML injection Jardiance 25 MG tablet Take 1 tablet by mouth 1 (one) time each day in the morning levothyroxine sodium (TIROSINT) 88 MCG capsule Take 1 tablet by mouth 1 (one) time each day (Patient taking differently: Take 125 mcg by mouth 1 (one) time each day) metoprolol succinate XL (TOPROL XL) 50 MG 24 hr tablet Take 50 mg by mouth 1 (one) time each day Donot crush or chew. torsemide (DEMADEX) 10 MG tablet Take 1 tablet (10 mg total) by mouth 1 (one) time each day (Patient taking differently: Take 20 mg by mouth 1 (one) time each day) 90 tablet 3 losartan (COZAAR) 100 MG tablet Take 100 mg by mouth 1 (one) time each day (Patient not taking: Reported on 08/03/2025) No current facility-administered medications for this visit. Allergy List No Known Allergies Physical Exam BP 180/80 (BP Location: Left upper arm, Patient Position: Sitting, BP Cuff Size: Adult) Pulse 60 Wt 220 lb 6.4 oz (100 kg) SpO2 97% BMI 39.04 kg/m?? Last 3 office BP readings: BP Readings from Last 3 Encounters: 08/03/25 180/80 01/25/25 134/78 07/26/24 185/71 Repeat bp 154/60 General: Well developed well nourished in no acute distress Neuro: alert interactive without delirium Eyes: anicteric ENT: moist membranes, no stridor Cardiovascular: regular rate and rhythm, no rub Pulmonary: no distress or tachypnea Abdomen: soft and nondistended Genitourinary: no suprapubic tenderness or bladder distension to palpation Musculoskeletal: No bony tenderness or deviation Dermatologic: No visible rash on exposed skin Hematologic: no petechiae or ecchymoses on exposed skin Extremities: edema trace at ankles Labs Chemistry Lab Units 07/28/25 0720 07/20/25 0802 01/18/25 0809 07/20/24 0739 09/30/23 0933 09/09/23 1023 CREATININE mg/dL 1.94* 1.64* 1.56* 1.25* 1.9* 1.5* BUN mg/dL 47* 53* 34* 44* 39* 27* POTASSIUM mmol/L 5.1 6.2* 4.8 5.2 5.3* 4.9 SODIUM mmol/L 138 139 141 142 139 138 CO2 mmol/L 18* 17* 21 20 29 27 CHLORIDE mmol/L 102 106 102 110* 102 98 ALBUMIN g/dL 4.1 3.9 4.1 3.6* 3.9 4.0 EGFRNAFR ML/MIN/1.73 M2 -- -- -- -- 27 37 EGFR mL/min/1.73 26* 32* 34* 45* -- -- WBC AUTO x10E3/uL -- 7.3 7.1 5.4 6.1 5.8 HEMATOCRIT % -- 40.7 38.8 40.2 41.1 42.9 HEMOGLOBIN g/dL -- 13.0 12.7 12.8 13.1 13.6 PLATELETS AUTO x10E3/uL -- 212 203 182 203 188 Bone Mineral Lab Units 07/28/25 0720 07/20/25 0802 03/31/25 0933 03/31/25 0930 02/15/25 1432 02/15/25 1427 02/15/25 1422 01/18/25 0809 07/20/24 0739 09/30/23 0933 09/30/23 0933 09/09/23 1023 CALCIUM mg/dL 9.5 8.9 9.4 9.9 -- -- -- 10.8* 11.2* -- 12.1* 12.1* PHOSPHORUS mg/dL 3.8 3.3 -- -- -- -- -- 3.0 3.3 -- 3.1 3.1 ALK PHOS IU/L -- 172* -- -- -- -- -- 198* 148* -- 178* 207* PTH pg/mL -- 214* 241* -- 99* 140.5* 184.6* 528* 452* < > 393* 429* VITAMIN D NG/ML -- -- -- -- -- -- -- -- -- -- 40.4 45.5 VIT D 25 HYDROXY ng/mL -- 20.5* -- -- -- -- -- 20.1* 25.7* -- -- -- < > = values in this interval not displayed. Urine Lab Units 07/20/25 0802 01/18/25 0809 07/20/24 0739 PROT/CREAT RATIO UR mg/g creat 450* 819* 1,156* No lab exists for component: IRON SATURATION No lab exists for component: CYCLOSPORITR Assessment & Plan 1. Stage 3b chronic kidney disease ([facility]) 2. Secondary hyperparathyroidism ([facility]) 3. Monoclonal gammopathy of uncertain significance 4. Hypertension 5. Hyperkalemia 6. Hypercalcemia 7. Dyslipidemia 8. Acquired renal cystic disease 9. Osteoporosis 10. Retinopathy due to diabetes mellitus ([facility]) 11. Tricuspid valve regurgitation 12. Type 2 diabetes mellitus without complication ([facility]) Impression and Plan: CHRONIC KIDNEY DISEASE STAGE IIIB. - 2/2 DIABETIC, HYPERTENSIVE AND HYPERCALCEMIC RELATED KIDNEY DISEASE - SLOWLY PROGRESSIVE OVER TIME. CREATININE IS LABILE WITH ROLLING AVERAGES 1.3-1.9 SUGGESTING LOSS OF AUTOREGULATION AND A CARDIORENAL/HYDRATIONAL COMPONENT - STABLE 2023,2024 ACQUIRED RENAL CYSTIC DISEASE - NO CHANGE ON U/S 01/2022 LOW GRADE PROTEINURIA - PEAKED AT 2.2 GM/DAY IN 2021 - REGRESSING TO 600 MG/DAY 2024 HYPERTENSION WITH A DOCUMENTED WHITE COAT EFFECT ON 24 HR BPM 01/2015 - DESPITE YEARS OF EDUCATIONALEFFORTS NO HOME BP READINGS PRESENTED AGAIN AND MEDICATIONS CANNOT BE RECONCILED CONSISTENTLY RECURRENT CHRONIC MEDICATION AND HEALTH CARE CONFUSION DESPITE HYDABURG LANGUAGE TRANSLATION AND WRITTEN INSTRUCTIONS - DEMENTIA? SUSPECTED ANXIETY > MEMORY ISSUE - INSTRUCTIONS USUALLY HANDWRITTEN AND FORMAL CHILEAN TRANSLATION USED IN OFFICE AND ATTEMPTS MADE TO FAMILY INSULIN REQUIRING DIABETES MELLITUS WITH KNOWN COMPLICATIONS INCLUDING NEUROPATHY, PROTEINURIA, ANDRETINOPATHY AND OFTEN A1C LEVELS >10 SODIUM RETENTION AND DEPENDENT EDEMA - STABLE - I BELIEVE SHE IS ON TORSEMIDE. PRIMARY HYPERPARATHYROIDISM WITH CHRONIC HYPERCALCEMIA - (PHOS LOW NML, CALCIUM CHRONICALLY ELEVATED, +OSTEOPOROSIS) URINE CALCIUM LOW BUT STILL GREATER THEN 0.02 MG/MG ARGUING AGAINST A DIAGNOSIS OFFHH. CALCIUM DID NOT IMPROVE WITH CESSATION OF THIAZIDE, ADDITION OF LOOP DIURETIC OR BISPHOSPHONATE. CT ABD 2018 DID NOT SHOW STONES OR NEPHROCALCINOSIS. SHE HAS BEEN SEEN BY ENDOCRINE SURGERY 09/2023 WITH RECOMMENDATIONS FOR PARATHYROIDIECTOMY - DR WINN - THEN DR RODRIGUEZ- EVENTUAL SURGERY WAS SUMMER 2024 AND SERUM CALCIUM IS NOW NORMAL PAPILLARY THYROID CANCER WAS FOUND DURING NECK SURGERY AND S/P EXCISION OSTEOPOROSIS - ON ALENDRONATE - STOPPED 2018 DUE TO POSSIBLE NORMAL BONE DENSITY? NO RECORDS AVAILABLE. - SCORED ONLY OSTEOPENIC 06/2023 STUDY? - RELATED TO HYPERRARATHYROID ANEMIA - STABLE BRADYCARDIA- CULMINATED IN PACEMAKER 2023 HYPERKALEMIA LIKELY DUE TO HIGH DOSE ACEI, ATENELOL, CKD ETC - RECURRED AGAIN 2024 AND SO WE HELD THE RAAS ANTAGONISM MGUS F/B HEMATOLOGY DR LEUNG DISCUSSION: -home monitoring and 24 hr bpm periodically recommended yet she fails to follow through now for many years and once again presents NO home readings -Weight loss is recommended but is again stagnant -sugar control is similarly problematic -we discussed possible hereditary process such as pkd and impact on family counselling but observation throughout time seems less and less impressive that this is a hereditary cystic process and the cysts seem all to be acquired only. 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 However the translators tell me that she is appropriate. Family involvement helps to some degree when available. -You should consider home care or blister packs -I have recommended that daughter manage all meds -agree with torsemide as diuretic of choice given the ckd and hypercalcemia -given her labile creatinine, office hypotension at times, questionable mental state and medicationconfusion, chronic hypercalcemia and diuretics, I recommended stopping her lisinopril a few years back and I suggest that we avoid RAAS blockade to prevent jerome and recurrent hyperkalemia. Looks like someone did not like that recommendation and she restarted losartan. This resulted in k 6.2 last week and I had to stop losartan again. Repeat k came down to normal off the losartan. PLAN: -stay off all RAAS antagonism medications unless she goes on K binders like lokelma regularly lifelong. (Ie do not give ARB or ACEI without concomitant lokelma or keyexalate) -bp treatment with ccb, bb, diuretics, sglt2 -sugar control -adherence and apathy are her biggest obstacles that we have not been able to overcome. She will likely need dialysis in the next 5 years. Calcium and vit d can be added back now that she is s/p parathyroidectomy but I will defer that to her billboard erector Orders Placed This Encounter Comprehensive Metabolic Panel Uric Acid Magnesium Phosphorus PTH, Intact Vitamin D 25 Hydroxy CBC and Differential Protein, Total, Random Urine w/Creatinine (Protein/Creat Ratio) Return in about 6 months (around 01/31/2026) for OV with labs 1-2 weeks prior to visit. Bobby Cannon MD documented in this encounter Plan of Treatment Upcoming Encounters Date Type Department Care Team (Late st Contact Info) Description 01/31/2026 8:40 AM EDT [facility] [address] [phone] Bobby Cannon MD [facility] [address] [phone] Scheduled Orders Name Type Priority Associated Diagnoses Orde r Schedule Comprehensive Metabolic Panel Lab Routine Stage 3b chronic kidney disease (HCC) Secondary hyperparathyroidism (HCC) Monoclonal gammopathy of uncertain significance Hypertension Hyperkalemia Hypercalcemia Dyslipidemia Acquired renal cystic disease Osteoporosis 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) Tricuspid valve regurgitation Type 2 diabetes mellitus without complication (HCC) Expected: 01/31/2026, Expires: 09/02/2026 Uric Acid Lab Routine Stage 3b chronic kidney disease (HCC) Secondary hyperparathyroidism (HCC) Monoclonal gammopathy of uncertain significance Hypertension Hyperkalemia Hypercalcemia Dyslipidemia Acquired renal cystic disease Osteoporosis 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) Tricuspid valve regurgitation Type 2 diabetes mellitus without complication (HCC) Expected: 01/31/2026, Expires: 09/02/2026 Magnesium Lab Routine Stage 3b chronic kidney disease (HCC) Secondary hyperparathyroidism (HCC) Monoclonal gammopathy of uncertain significance Hypertension Hyperkalemia Hypercalcemia Dyslipidemia Acquired renal cystic disease Osteoporosis 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) Tricuspid valve regurgitation Type 2 diabetes mellitus without complication (HCC) Expected: 01/31/2026, Expires: 09/02/2026 Phosphorus Lab Routine Stage 3b chronic kidney disease (HCC) Secondary hyperparathyroidism (HCC) Monoclonal gammopathy of uncertain significance Hypertension Hyperkalemia Hypercalcemia Dyslipidemia Acquired renal cystic disease Osteoporosis 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) Tricuspid valve regurgitation Type 2 diabetes mellitus without complication (HCC) Expected: 01/31/2026, Expires: 09/02/2026 PTH, Intact Lab Routine Stage 3b chronic kidney disease (HCC) Secondary hyperparathyroidism (HCC) Monoclonal gammopathy of uncertain significance Hypertension Hyperkalemia Hypercalcemia Dyslipidemia Acquired renal cystic disease Osteoporosis 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) Tricuspid valve regurgitation Type 2 diabetes mellitus without complication (HCC) Expected: 01/31/2026, Expires: 09/02/2026 Vitamin D 25 Hydroxy Lab Routine Stage 3b chronic kidney disease (HCC) Secondary hyperparathyroidism (HCC) Monoclonal gammopathy of uncertain significance Hypertension Hyperkalemia Hypercalcemia Dyslipidemia Acquired renal cystic disease Osteoporosis 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) Tricuspid valve regurgitation Type 2 diabetes mellitus without complication (HCC) Expected: 01/31/2026, Expires: 09/02/2026 CBC and Differential Lab Routine Stage 3b chronic kidney disease (HCC) Secondary hyperparathyroidism (HCC) Monoclonal gammopathy of uncertain significance Hypertension Hyperkalemia Hypercalcemia Dyslipidemia Acquired renal cystic disease Osteoporosis 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) Tricuspid valve regurgitation Type 2 diabetes mellitus without complication (HCC) Expected: 01/31/2026, Expires: 09/02/2026 Protein, Total, Random Urine w/Creatinine (Protein/Creat Ratio) Lab Routine Stage 3b chronic kidney disease (HCC) Secondary hyperparathyroidism (HCC) Monoclonal gammopathy of uncertain significance Hypertension Hyperkalemia Hypercalcemia Dyslipidemia Acquired renal cystic disease Osteoporosis 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) Tricuspid valve regurgitation Type 2 diabetes mellitus without complication (HCC) Expected: 01/31/2026, Expires: 09/02/2026 documented as of this encounter Visit Diagnoses Diagnosis Stage 3b chronic kidney disease (HCC)- Primary Secondary hyperparathyroidism (HCC) Monoclonal gammopathy of uncertain significance Hypertension Hyperkalemia Hypercalcemia Dyslipidemia Acquired renal cystic disease Osteoporosis 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
--- NOTE | 2025-08-03 13:13 | CA_ITS ---
Transthoracic Echocardiogram Patient (Last, First, Middle): Ebony Camarillo, Gender: Female Date of : 1950 Age: 74 Procedure Date: 08/03/2025 Procedure Type: Transthoracic Echocardiogram Location: OP Height: 154.94 cm Weight: 102.97 kg BSA: 1.99 m2 Heart Rate: bpm BP: 134 / 80 mmHg Leather Heel Breaster: RIGOBERTO Referring MD: Oneal Jennings MD Symptoms: I50.30 - Unspecified diastolic (congestive) heart failure Study Quality: Adequate ECG Rhythm: Sinus Conclusions: - The left ventricular systolic function is normal. The calculated ejection fraction is 58% by biplane method. - Evidence suggests grade II (moderate) diastolic dysfunction. - There is moderate tricuspid valve regurgitation. - Moderate pulmonary hypertension is present. Findings Left Ventricle Normal left ventricular cavity size. The left ventricular systolic function is normal. The calculated ejection fraction is 58% by biplane method. There is no evidence of regional wall motion abnormalities. Evidence suggests grade II (moderate) diastolic dysfunction. There is mild septal and mild basal asymmetric hypertrophy. Right Ventricle Normal right ventricular cavity size and systolic function. Atria Both atria are normal in size. Aortic Valve There is a normal trileaflet aortic valve. There is no aortic valve stenosis. There is no aortic valve regurgitation. Mitral Valve The mitral valve appears normal. There is trace mitral valve regurgitation. There is no mitral valve stenosis. Pulmonic Valve There is trace pulmonic valve regurgitation. Tricuspid Valve There is moderate tricuspid valve regurgitation. Moderate pulmonary hypertension is present. Great Vessels The asc aorta and aortic arch are normal in size. Venous The inferior vena cava is mildly dilated and collapses greater than 50% with inspiration. Pericardium/Pleural There is no evidence of pericardial effusion. Prior Study Comparison No significant change compared to prior study dated: 03/26/2024. Measurements 2D Linear Measurements IVSd: 0.92 0.6-0.9/0.6-1.0 cm LVIDd: 4.35 3.9-5.3/4.2-5.9 cm LVIDd Index: 2.19 2.4-3.2/2.2-3.1 cm/m2 LVIDs: 2.91 2.0-3.6 cm LVPWd: 1.05 0.7-1.1 cm LA Diam: 4.10 2.7-3.8/3.0-4.0 cm LAIDs Index: 2.06 1.5-2.3 cm/m2 LV Mass: 176.55 67-162/88-224 g LV Mass Index: 88.72 43-95/49-115 g/m2 LVOT Diam: 2.00 3.0+(-)1.3 cm 2D Systolic Function EF 4C: 55.80 >55% EF 2C: 58.90 >55% EF BiP: 58.20 >55% Mitral Valve MV Pk E: 0.65 MV PK A: 0.80 MV Decel Time: 198.00 E/A: 0.80 E'Lateral: 8.27 E'Medial: 6.53 E/E' Med: 10.00 E/E' Lat: 7.90 PHT: 58.00 MVA PHT: 3.79 Decel Preble: 3.28 Aortic Valve AoV Pk Diego: 1.80 AoV Mn Diego: 1.27 AoV VTI: 0.48 AoV Pk Grad: 13.00 Aov Mn Grad: 7.00 STEPHANIE Cont.VTI: 1.78 LVOT LVOT Pk Diego: 0.99 LVOT Mn Diego: 0.71 LVOT VTI: 0.27 LVOT Pk Grad: 4.00 LVOT Mn Grad: 2.00 LVOT Diam: 2.00 LVOT Area: 3.14 Diastolic Function MV Pk E: 0.65 MV Pk A: 0.80 E/A: 0.80 E'Medial: 6.53 E/E' Med: 10.00 E' Laterial: 8.27 E/E' Lat: 7.90 Right Ventricle TAPSE (mm): 23.50 TVS' Diego: 11.50 Tricuspid Valve TR Pk Diego: 3.71 TR Pk Grad: 55.00 RA Press: 8.00 RVSP: 63.00 Great Vessels Aorta Sinus of Valsalva: 3.21 2.0-3.[address] [place]: 1.98 1.7-3.4 cm Ao Asc: 3.20 2.1-3.4 cm Ao Arch: 2.80 Updated in Other Vendor System with Status of Final Fidel Irwin MD electronically signed on 08/05/2025 4:06:41 PM with status of Final
--- OUTSIDE RECORDS SUMMARY | 2025-08-03 16:49 | XMS_ITS | Clinical Summary ---
Author Organization [facility] Address [address] [place] [address] Care Team Providers Care Shredded Filler Cutter Operator Name Role Phone Sarah Beth Sanford MD Primary Care Provider [phone] Allergies No known active allergies Medications Medication [...] age to complete this topic Care Teams Shredded Filler Cutter Operator Relationship Specialty Start Date End Date Sarah Beth Sanford MD [address] [phone] PCP - General Internal Medicine 06/18/23
--- OUTSIDE RECORDS SUMMARY | 2025-08-03 16:49 | XMS_ITS | Encounter Summary ---
Author Organization [facility] Address [address] [place] [address] Care Team Providers Care Heel Scourer Name Role Phone Sarah Beth Sanford MD Primary Care Provider [phone] Encounter Details Date Type Department Care Team (Late Contact Info) Description 04/27/2025 Lab Requisition [facility] - Main Lab [address] [place] [address] Sarah Beth Sanford MD [address] [place] [address] [place] [address] Hypothyroidism, unspecified; Type 2 diabetes mellitus with hyperglycemia (CMS/HCC V24, CMS/HCC V28); Monoclonal gammopathy Social History Tobacco Use Types Packs/Day Years Used Date Smoking Tobacco: Never Smokeless Tobacco: Never Alcohol Use Standard Drinks/Week Comments No 0 (1 standard drink = 0.6 oz pur e alcohol) Interpersonal Safety Answer Date Record ed Physical Abuse 02/15/2025 Verbal Abuse 02/15/2025 Comments No Sex and Gender Information Value Date Recorded Sex Assigned at Female 02/15/2025 8:56 AM EDT Legal Sex Female 8:26 AM EST Gender Identity Female 02/15/2025 8:56 AM EDT Sexual Orientation Straight 02/15/2025 8: 56 AM EDT documented as of this encounter Plan of Treatment Upcoming Encounters Date Type Department Care Team (Late Contact Info) Description 08/04/2025 9:00 AM EDT Office Visit [facility] Hematology Oncology [address] [place] [phone] Ghislaine Dia MD [address] [place] [address] 09/07/2025 9:00 AM EDT Appointment [facility] Ultrasound [address] [place] [address] Scheduled Orders Name Type Priority Associated Diagnoses Orde r Schedule Thyroid stimulating hormone Lab Routine Hypothyroidism, unspecified Ordered: 04/27/2025 Comprehensive metabolic panel Lab Routine Type 2 diabetes mellitus with hyperglycemia ([facility] V24, [facility] V28) Ordered: 04/27/2025 CBC and differential Lab Routine Monoclonal gammopathy Ordered: 04/27/2025 Microalbumin creatinine urine ratio Lab Routine Type 2 diabetes mellitus with hyperglycemia ([facility] V24, [facility] V28) Ordered: 04/27/2025 Hemoglobin A1c Lab Routine Ordered: 0 04/27/2025 documented as of this encounter Visit Diagnoses Diagnosis Hypothyroidism, unspecified Type 2 diabetes mellitus with hyperglycemia ([facility] V24, [facility] V28) Monoclonal gammopathy Monoclonal paraproteinemia documented in this encounter Care Teams Heel Scourer Relationship Specialty Start Date End Date Sarah Beth Sanford MD [address] [place] [address] [place] [address] PCP - General 06/18/23 documented as of this encounter
--- OUTSIDE RECORDS SUMMARY | 2025-08-03 16:49 | XMS_ITS | Clinical Summary ---
Author Organization [facility] Address [address] [address] Phone Care Team Providers Care Slitter And Rewinder Machine Operator Name Role Phone Sarah Beth Sanford MD Primary Care Provider Allergies No known active allergies Medications insulin glargine (Lantus) 100 UNIT/ML injection Inject 35 Units under the skin 1 (one) time each day 12/03/19 14 Active insulin regular (HumuLIN,NovoL IN) 100 UNIT/ML injection Active levothyroxine sodium (TIROSINT) 88 MCG capsule Take 1 tablet by mouth 1 (one) time each day 07/14/20 14 Active torsemide (DEMADEX) 10 MG tablet Take 1 tablet (10 mg total) by mouth 1 (one) time each day 90 tablet 3 12/10/19 22 Active Additional Information Patient taking differently: 20 mgOral Daily, Reported on 08/03/2025 atorvastatin (LIPITOR) 80 MG tablet Take 80 mg by mouth 1 (one) time each day 12/01/19 22 Active Jardiance 25 MG tablet Take 1 tablet by mouth 1 (one) time each day in the morning 12/26/19 22 Active acetaminophen (TYLENOL) 500 MG tablet Take 500 mg by mouth 3 (three) times a day if needed for mild pain Active Eliquis 5 MG tablet Take 5 mg by mouth in the morning and 5 mg in the evening. 01/15/20 24 Active losartan (COZAAR) 100 MG tablet Take 100 mg by mouth 1 (one) time each day Active amLODIPine (NORVASC) 10 MG tablet Take 10 mg by mouth 1 (one) time each day Active metoprolol succinate XL (TOPROL XL) 50 MG 24 hr tablet Take 50 mg by mouth 1 (one) time each day Do not crush or chew. Active carvedilol (COREG) 12.5 MG tablet Take 12.5 mg by mouth in the morning and 12.5 mg in the evening. Take with meals. 05/10/20 24 025 Discontinued Dulaglutide (Trulicity) 1.5 MG/0.5ML solution pen-injector USE ONCE A WEEK DIRECTED 04/07/20 23 025 Discontinued cinacalcet (SENSIPAR) 60 MG tablet Take 60 mg by mouth 1 (one) time each day 12/30/19 025 Discontinued metoprolol tartrate (LOPRESSOR) 50 MG tablet Take 50 mg by mouth in the morning and 50 mg in the evening. 025 Discontinued Active Problems Problem Noted Date Diagnosed Date Monoclonal gammopathy of uncertain significance 09/29/2024 Stage 3b chronic kidney disease 07/30/2022 Dyslipidemia 01/28/2022 Malignant tumor of breast 01/28/2022 Overview (01/28/2022): Tamoxifen completed in June 2010, Followed by [facility] Osteopenia 01/28/2022 Tricuspid valve [...] otherwise specified 04/30/2021 01/28/2022 Essential hypertension 04/26/202107/30 Encounters Date Type Department Care Team Description 08/03/2025 8:20 AM EDT Office Visit [facility] [address] [address] Bobby Cannon MD Stage 3b chronic kidney disease (HCC) (Primary Dx); Secondary hyperparathyroidism (HCC); Monoclonal gammopathy of uncertain significance; Hypertension; Hyperkalemia; Hypercalcemia; Dyslipidemia; Acquired renal cystic disease; Osteoporosis; 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); Tricuspid valve regurgitation; Type 2 diabetes mellitus without complication (HCC) 07/28/2025 Orders Only [facility] [address] [address] Bobby Cannon MD Stage 3b chronic kidney disease (HCC); Type 2 diabetes mellitus without complication (HCC); Tricuspid valve regurgitation; Secondary hyperparathyroidism (HCC); 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); Renal stone; Proteinuria, not otherwise specified; Osteoporosis; Hypertension; Hyperkalemia; Hypercalcemia; Dyslipidemia; Acquired renal cystic disease 07/28/2025 Orders Only [facility] [address] [address] Bobby Cannon MD Stage 3b chronic kidney disease (HCC); Type 2 diabetes mellitus without complication (HCC); Tricuspid valve regurgitation; Secondary hyperparathyroidism (HCC); 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); Renal stone; Proteinuria, not otherwise specified; Osteoporosis; Hypertension; Hyperkalemia; Hypercalcemia; Dyslipidemia; Acquired renal cystic disease 07/21/2025 Office Communication [facility] [address] [address] Bobby Cannon MD 07/20/2025 Orders Only [facility] [address] [place] [address] Bobby Cannon MD from Last 3 Months Immunizations Immunization Administration Dates Next Due DTaP [...] 6.4 oz) 08/03/2025 7:58 AM EDT Height 160 cm (5' 3 ) 07/26/2024 8:08 AM EDT Body Mass Index 39.04 07/26/2024 8:08 AM EDT Plan of Treatment Upcoming Encounters Date Type Department Care Team (Late st Contact Info) Description 01/31/2026 8:40 AM EDT Office Visit [facility] [address] [phone] Bobby Cannon MD [address] [phone] Health Maintenance Due Date Last Done Comments [...] Procedure Name Priority Date/Time Associated Diagnosis Comments RENAL FUNCTION PANEL Routine 07/28/2025 7:20 AM EDT Stage 3b chronic kidney disease (HCC) Type 2 diabetes mellitus without complication (HCC) Tricuspid valve regurgitation Secondary hyperparathyroidism (HCC) 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) Renal stone Proteinuria, not otherwise specified Osteoporosis Hypertension Hyperkalemia Hypercalcemia Dyslipidemia Acquired renal cystic disease SPECIMEN STATUS REPORT Routine 07/20/2025 8:02 AM EDT PTH, INTACT Routine 07/20/2025 8:02 AM EDT MAGNESIUM Routine 07/20/2025 8:02 AM EDT PHOSPHATE ( PHOSPHORUS) Routine 07/20/2025 8:02 AM EDT URIC ACID Routine 07/20/2025 8:02 AM EDT VITAMIN D 25 HYDROXY Routine 07/20/2025 8:02 AM EDT PROTEIN / CREATININE RATIO, URINE Routine 07/20/2025 8:02 AM EDT COMPREHENSIVE METABOLIC PANEL Routine 07/20/2025 8:02 AM EDT CBC AND DIFFERENTIAL Routine 07/20/2025 8:02 AM EDT EXT RESULT ENTRY Routine 03/09/2021 from Last 3 Months or Most Recently Relevant to Health Maintenance Results * (ABNORMAL) Renal Function Panel (07/28/2025 7:20 AM EDT) Pathologist [facility] Glucose 137(H) 70 - 99 mg/dL [facility] BUN 47(H) 8 - 27 mg/dL [facility] Creatinine 1.94(H) 0.57 - 1.00 mg/dL [facility] eGFR CKD-EPI CR 2020 26(L) >59 mL/min/1.7 3 [facility] BUN/Creatinine Ratio 24 12 - 28 [facility] Sodium 138 134 - 144 mmol/L [facility] Potassium 5.1 3.5 - 5.2 mmol/L [facility] Chloride 102 96 - 106 mmol/L [facility] Bicarbonate (CO2) 18(L) 20 - 29 mmol/L [facility] Calcium 9.5 8.7 - 10.3 mg/dL [facility] Albumin 4.1 3.8 - 4.8 g/dL [facility] Phosphorus 3.8 3.0 - 4.3 mg/dL [facility] Blood Venous blood / Unknown 07/28/2025 7:20 AM EDT 07/28/2025 us Bobby Cannon MD LAB BLOOD ORDERABLES Final Re sult [facility] [address] [place] [address] * SPECIMEN STATUS REPORT (07/20/2025 8:02 AM EDT) Pathologist [facility] Specimen Status Comment [facility] Comment: Todd Noam CMP14 Default Todd Noam CMP14 Default A hand-written panel/profile was received from your office. In accordance with the [facility] Ambiguous Test Code Policy dated May 2003, we have completed your order by using the closest currently or formerly recognized AMA panel. We have assigned Comprehensive Metabolic Panel (14), Test Code #576160 to this request. If this is not the testing you wished to receive on this specimen, please contact the [facility] Client Inquiry/Technical Services Department to clarify the test order. We appreciate your business. 07/20/2025 8:02 AM EDT 07/20/2025 Bobby Cannon MD LAB BLOOD ORDERABLES Final Re sult Performing Organization Address City/[facility]/ZIP Co de Phone Number [facility] [address] [place] [address] * (ABNORMAL) Protein, Total, Random Urine w/Creatinine (Protein/Creat Ratio) (07/20/2025 8:02 AM EDT) Creatinine, Ur 63.8 Not Estab. mg/dL [facility] Protein, Ur 28.7 Not Estab. mg/dL [facility] Urine Protein/Creati nine Ratio 450(H) 0 - 200 mg/g creat [facility] 07/20/2025 8:02 AM EDT 07/20/2025 Bobby Cannon MD LAB URINE ORDERABLES Final Re sult Performing Organization Address City/[facility]/ZIP Co de Phone Number [facility] [address] [place] [address] * (ABNORMAL) Vitamin D 25 Hydroxy (07/20/2025 8:02 AM EDT) Vitamin D, 25-OH, Total 20.5(L) 30.0 - 100.0 ng/mL [facility] Comment: Vitamin D deficiency has been defined by the [place] of Medicine and an Endocrine Society practice guideline as a level of serum 25-OH vitamin D less than 20 ng/mL (1,2). The Endocrine Society went on to further define vitamin D insufficiency as a level between 21 and 29 ng/mL (2). 1. IOM ([place] of Medicine). 2010. Dietary reference intakes for calcium and D. [place]: The National Academies Press. 2. Caitlyn MF, Madison OBRIEN, Belén SULLIVAN, et al. Evaluation, treatment, and prevention of vitamin D deficiency: an Endocrine Society clinical practice guideline. JCEM. 2010; 96(7):1911-30. 07/20/2025 8:02 AM EDT 07/20/2025 us Bobby Cannon MD LAB BLOOD ORDERABLES Final Re sult [facility] [address] [place] [address] * CBC and Differential (07/20/2025 8:02 AM EDT) WBC 7.3 3.4 - 10.8 x10E3/uL [facility] RBC 4.34 3.77 - 5.28 x10E6/uL [facility] Hemoglobin 13.0 11.1 - 15.9 g/dL [facility] Hematocrit 40.7 34.0 - 46.6 % [facility] MCV 94 79 - 97 fL [facility] MCH 30.0 26.6 - 33.0 pg [facility] MCHC 31.9 31.5 - 35.7 g/dL [facility] RDW 14.6 11.7 - 15.4 % [facility] Platelets 212 150 - 450 x10E3/uL [facility] Neutrophils Relative 60 Not Estab. % [facility] Lymphocytes Relative 27 Not Estab. % [facility] Monocytes 9 Not Estab. % [facility] Eosinophils Relative 3 Not Estab. % [facility] Basophils Relative 1 Not Estab. % [facility] Neutrophils Absolute 4.4 1.4 - 7.0 x10E3/uL [facility] Lymphocytes Absolute 2.0 0.7 - 3.1 x10E3/uL [facility] Monocytes Absolute 0.7 0.1 - 0.9 x10E3/uL [facility] Eosinophils Absolute 0.2 0.0 - 0.4 x10E3/uL [facility] Basophils Absolute 0.0 0.0 - 0.2 x10E3/uL [facility] Immature Granulocytes 0 Not Estab. % [facility] Immature Grans (Absolute) 0.0 0.0 - 0.1 x10E3/uL [facility] 07/20/2025 8:02 AM EDT 07/20/2025 Narrative [facility] - 07/21/2025 6:06 PM EDT Specimen Comment: Called/faxed to Dr Caballero on 07/21/2025 at 00:31 ET for test Specimen Comment: Potassium us Bobby Cannon MD LAB BLOOD ORDERABLES Final Re sult [facility] [address] [place] [address] * Uric Acid (07/20/2025 8:02 AM EDT) Pathologist [facility] Uric Acid 7.4 3.1 - 7.9 mg/dL [facility] Comment:Therapeutic target f or gout patients: <6.0 07/20/2025 8:02 AM EDT 07/20/2025 Bobby Cannon MD LAB BLOOD ORDERABLES Final Re sult Performing Organization Address City/[facility] Co de Phone Number [facility] [address] [place] [address] * Phosphorus (07/20/2025 8:02 AM EDT) [facility] Phosphorus 3.3 3.0 - 4.3 mg/dL [facility] 07/20/2025 8:02 AM EDT 07/20/2025 Bobby Cannon MD LAB BLOOD ORDERABLES Final Re sult Performing Organization Address [facility] de Phone Number [facility] [address] [place] [address] * (ABNORMAL) PTH, Intact (07/20/2025 8:02 AM EDT) Pathologist [facility] PTH 214(H) 15 - 65 pg/mL [facility] 07/20/2025 8:02 AM EDT 07/20/2025 Bobby Cannon MD LAB BLOOD ORDERABLES Final Re sult Performing Organization Address [facility] de Phone Number [facility] [place] [address] [place] [address] * (ABNORMAL) Magnesium (07/20/2025 8:02 AM EDT) Pathologist [facility] Magnesium 2.4(H) 1.6 - 2.3 mg/dL [facility] 07/20/2025 8:02 AM EDT 07/20/2025 us Bobby Cannon MD LAB BLOOD ORDERABLES Final Re sult [facility] [address] [place] [address] * (ABNORMAL) Comprehensive Metabolic Panel (07/20/2025 8:02 AM EDT) Glucose 223(H) 70 - 99 mg/dL [facility] BUN 53(H) 8 - 27 mg/dL [facility] Creatinine 1.64(H) 0.57 - 1.00 mg/dL [facility] eGFR CKD-EPI CR 2020 32(L) >59 mL/min/1.7 3 [facility] BUN/Creatinine Ratio 32(H) 12 - 28 [facility] Sodium 139 134 - 144 mmol/L [facility] Potassium 6.2(>) 3.5 - 5.2 mmol/L [facility] Comment:Client Requested [place] Chloride 106 96 - 106 mmol/L [facility] Bicarbonate (CO2) 17(L) 20 - 29 mmol/L [facility] Calcium 8.9 8.7 - 10.3 mg/dL [facility] Total Protein 7.0 6.0 - 8.5 g/dL [facility] Albumin 3.9 3.8 - 4.8 g/dL [facility] Globulin 3.1 1.5 - 4.5 g/dL [facility] Total Bilirubin 0.3 0.0 - 1.2 mg/dL [facility] Alkaline Phosphatase 172(H) 44 - 121 IU/L [facility] Comment: Effective August 01, 2025 Alkaline Phosphatase reference interval will be changing to: Age Male Female 0 - 5 days 47 - 127 47 - 127 6 - 10 days 29 - 242 29 - 242 11 - 20 days 109 - 357 109 - 357 21 - 30 days 94 - 494 94 - 494 1 - 2 months 149 - 539 149 - 539 3 - 6 months 131 - 452 131 - 452 7 - 11 months 117 - 401 117 - 401 12 months - 6 years 158 - 369 158 - 369 7 - 12 years 150 - 409 150 - 409 13 years 156 - 435 78 - 227 14 years 114 - 375 64 - 161 15 years 88 - 279 56 - 134 16 years 74 - 207 51 - 121 17 years 63 - 161 47 - 113 18 - 20 years 51 - 125 42 - 106 21 - 50 years 47 - 123 41 - 116 51 - 80 years 49 - 135 51 - 125 >80 years 48 - 129 48 - 129 AST (SGOT) 14 0 - 40 IU/L [facility] ALT (SGPT) 11 0 - 32 IU/L [facility] 07/20/2025 8:02 AM EDT 07/20/2025 us Bobby Cannon MD LAB BLOOD ORDERABLES Final Re sult [facility] [address] [place] [address] * (ABNORMAL) EXT RESULT ENTRY (03/09/2021) WBC [...] 11.0(A) 8.7 - 10.7 mg/dL eGFR Non-Afr [place] 34 eGFR 40 Total Bilirubin 0.3 MG/DL ALT (SGPT) 14 U/L AST (SGOT) 14 U/L [facility] Phosphatase 112 U/L Hemoglobin A1C 8.3(A) 4.0 - 6.0 Triglycerides 117 40 - 160 Cholesterol 293(A) 0 - 200 HDL 64 35 - 70 MG/DL LDL Calculated 206(A) 0 - 160 mg/dL 03/09/2021 [facility] Provider LAB BLOOD ORDERABLES Kourtney l Result from Last 3 Months or Most Recently Relevant to Health Maintenance [place] [address] [place] Care Teams Slitter And Rewinder Machine Operator Relationship Specialty Start Date End Date Sarah Beth Sanford MD [facility] [address] PCP - General Internal Medicine 04/30/21
--- OUTSIDE RECORDS SUMMARY | 2025-08-03 16:49 | XMS_ITS | Encounter Summary ---
Author Organization [facility] Address [address] [place] [address] Care Team Providers Care Cab Supervisor Name Role Phone Sarah Beth Sanford MD Primary Care Provider [phone] Encounter Details Date Type Department Care Team (Late st Contact Info) Description 01/31/2025 Lab Requisition [facility] - Main Lab [address] [place] [address] Sarah Beth Sanford MD [address] [place] [address] [place] [address] Hyperparathyroidism, unspecified (CMS/HCC V24); Hypothyroidism, unspecified; Type [...] Description 08/04/2025 9:00 AM EDT Office Visit [facility] Hematology Oncology [address] [place] [address] Ghislaine Dia MD [address] [place] [address] 09/07/2025 9:00 AM EDT Appointment [facility] Ultrasound [address] [place] [address] Scheduled Orders Name Type Priority Associated Diagnoses Orde r Schedule Parathyroid hormone intact Lab Routine Hyperparathyroidism, unspecified ([facility]) Ordered: 01/31/2025 Thyroid stimulating hormone Lab Routine Hypothyroidism, unspecified Ordered: 01/31/2025 Comprehensive metabolic panel Lab Routine Type 2 diabetes mellitus with hyperglycemia ([facility]) Ordered: 01/31/2025 Hemoglobin A1c Lab Routine Type 2 diabetes mellitus with hyperglycemia ([facility]) Ordered: 01/31/2025 documented as of this encounter Visit Diagnoses Diagnosis Hyperparathyroidism, unspecified (CMS/HCC V24) Hyperparathyroidism, unspecified Hypothyroidism, unspecified Type 2 diabetes mellitus with hyperglycemia (CMS/HCC V24, CMS/HCC V28) documented in this encounter Care Teams Cab Supervisor Relationship Specialty Start Date End Date Sarah Beth Sanford MD [address] [place] [address] [place] [address] PCP - General 06/18/23 documented as of this encounter
--- OUTSIDE RECORDS SUMMARY | 2025-08-03 16:49 | XMS_ITS | Encounter Summary ---
Author Organization [facility] Address [address] [address] Phone Care Team Providers Care Lens Molder Name Role Phone Sarah Beth Sanford MD Primary Care Provider Encounter Details Date Type Department Care Team (Latest Contact Info) Description 07/28/2025 Orders Only [facility] [address] [place] [address] Bobby Cannon MD [address] [address] Stage 3b chronic kidney disease (HCC); Type 2 diabetes mellitus without complication (HCC); Tricuspid valve regurgitation; Secondary hyperparathyroidism (HCC); 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); Renal stone; Proteinuria, not otherwise specified; Osteoporosis; Hypertension; Hyperkalemia; Hypercalcemia; Dyslipidemia; Acquired renal cystic disease Social History Tobacco Use Types Packs/Day Years [...] on file documented as of this encounter Plan of Treatment Upcoming Encounters Date Type Department Care Team (Late st Contact Info) Description 01/31/2026 8:40 AM EDT Office Visit [facility] [address] [address] Bobby Cannon MD [address] [address] documented as of this encounter Procedures Procedure Name Priority Date/Time Associated Diagnosis Comments RENAL FUNCTION PANEL Routine 07/28/2025 7:20 AM EDT Stage 3b chronic kidney disease (HCC) Type 2 diabetes mellitus without complication (HCC) Tricuspid valve regurgitation Secondary hyperparathyroidism (HCC) 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) Renal stone Proteinuria, not otherwise specified Osteoporosis Hypertension Hyperkalemia Hypercalcemia Dyslipidemia Acquired renal cystic disease documented in this encounter Results * (ABNORMAL) Renal Function Panel (07/28/2025 7:20 AM EDT) Glucose 137(H) 70 - 99 mg/dL [facility] BUN 47(H) 8 - 27 mg/dL [facility] Creatinine 1.94(H) 0.57 - 1.00 mg/dL [facility] eGFR CKD-EPI CR 2020 26(L) >59 mL/min/1.7 3 [facility] BUN/Creatinine Ratio 24 12 - 28 [facility] Sodium 138 134 - 144 mmol/L [facility] Potassium 5.1 3.5 - 5.2 mmol/L [facility] Chloride 102 96 - 106 mmol/L [facility] Bicarbonate (CO2) 18(L) 20 - 29 mmol/L [facility] Calcium 9.5 8.7 - 10.3 mg/dL [facility] Albumin 4.1 3.8 - 4.8 g/dL [facility] Phosphorus 3.8 3.0 - 4.3 mg/dL [facility] Blood Venous blood / Unknown 07/28/2025 7:20 AM EDT 07/28/2025 us Bobby Cannon MD LAB BLOOD ORDERABLES Final Re sult [facility] [address] [place] [address] documented in this encounter Visit Diagnoses Diagnosis Stage 3b chronic kidney disease (HCC) Type 2 diabetes mellitus without complication (HCC) Tricuspid valve regurgitation Secondary hyperparathyroidism (HCC) 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
--- OUTSIDE RECORDS SUMMARY | 2025-08-03 16:49 | XMS_ITS | Clinical Summary ---
Author Organization [facility] Address [address] [place] [address] Phone Care Team Providers Care Nurse Paralegal Name Role Phone Aranza Duron MD Primary Care Provider [phone] Allergies No known active allergies Medications empagliflozin (Jardiance) 25 mg tablet Take 1 tablet (25 mg total) by mouth 1 (one) time each day in the morning. TAKE 1 TABLET BY MOUTH EVERY DAY IN THE MORNING ,hold 72Hrs prior to sx 3 Active insulin glargine (Lantus Solostar U-100 Insulin) 100 unit/mL (3 mL) injection pen 30 Units at bedtime. INJECT 25 UNITS SUBCUTANEOUS AT BEDTIME will only take half the dose 3 Active levothyroxine (SYNTHROID, LEVOTHROID) 88 mcg tablet Take 75 mcg by mouth 1 (one) time each day. Take 1 tablet (88 mcg total) by mouth daily. - Oral 3 Active torsemide (DEMADEX) 20 mg tablet Take 1 tablet (20 mg total) by mouth 1 (one) time each day. Take 1 tablet (20 mg total) by mouth daily. - Oral 3 Active HumaLOG KwikPen Insulin 100 unit/mL injection pen 10 Units 3 (three) times a day before meals. Active losartan (COZAAR) 50 mg tablet Take 2 tablets (100 mg total) by mouth 1 (one) time each day. 4 Active metoprolol succinate (TOPROL-XL) 100 mg 24 hr tablet Take 1 tablet (100 mg total) by mouth 1 (one) time each day. Do not crush or chew. Active acetaminophen (TYLENOL) 500 mg tablet Take 2 tablets (1,000 mg total) by mouth every 8 (eight) hours. 30 tablet 5 Active docusate sodium (COLACE) 100 mg capsule Take 1 capsule (100 mg total) by mouth 1 (one) time each day. 7 each 5 Active oxyCODONE (OXY-IR) 5 mg immediate release capsule Take 1 capsule (5 mg total) by mouth every 6 (six) hours if needed for severe pain. Max Daily Amount: 20 mg 12 capsule 5 Active Additional Information Patient not taking.Reported on 07/06/2025 calcium carbonate (TUMS) 500 mg (200 mg elemental calcium) chewable tablet Chew 2 tablets (1,000 mg total) See administration instructions. 2 tablets 3 times daily for 1 week, then 2 tablets twice daily for 1 week, then 2 tablets once daily for 1 week, then stop 77 tablet 5 026 Active amLODIPine (NORVASC) 10 mg tablet Take 1 tablet (10 mg total) by mouth 1 (one) time each day. 5 Active losartan (COZAAR) 100 mg tablet Take 1 tablet (100 mg total) by mouth 1 (one) time each day. 5 Active apixaban (ELIQUIS) 5 mg tablet Take 1 tablet (5 mg total) by mouth 2 (two) times a day. Active Active Problems Problem Noted Date Diagnosed Date Hypothyroidism 02/15/2025 HTN (hypertension) 02/15/2025 Type 2 diabetes mellitus wit h neurologic complication ([facility] V24, [facility] V28) 02/15/2025 Cancer ([facility] V24, [facility] V28) 02/15/2025 Gastroesophageal reflux disease without esophagi tis 02/15/2025 Pacemaker 02/15/2025 Chronic renal impairment, st age 1 (moderate) ([facility] V24, [facility] V28) 02/15/2025 MGUS (monoclonal gammopathy of unknown significa nce) 09/29/2024 Resolved Problems Problem Noted Date Diagnosed Date Resolved Date Seizures ([facility] V24, [facility] V28) 02/15/2025 02/15/2025 Hypercalcemia 01/27/2025 02/15/2025 Hyperparathyroidism ([facility] V24) 01/27/2025 02/15/2025 Neck mass 01/27/2025 02/15/2025 Encounters Date Type Department Care Team Description 07/06/2025 9:00 AM EDT Office Visit Endocrinology [address] [address] Margo Araiza MD Hyperparathyroidism ([facility] V24) (Primary Dx); History of partial thyroidectomy; Chronic renal impairment, stage 3a ([facility] V24, [facility] V28); Thyroid cancer ([facility] V24, [facility] V28) from Last 3 Months Surgical History Surgery Date Site/Laterality Comments UPPER GASTROINTESTINAL ENDOSCOPY 05/06/2019 PROCEDURE: AL UPPER GI ENDOSCOPY PERFORMED; COMMENT: Normal BREAST LUMPECTOMY 2003 Right PROCEDURE: HISTORICAL BREAST LUMPECTOMY COLONOSCOPY 05/06/2019 PROCEDURE: HISTORICAL COLONOSCOPY; COMMENT: Internal hemorrhoids, Diverticulosis, Repeat 5 yrs COLONOSCOPY 04/16/2012 PROCEDURE: HISTORICAL COLONOSCOPY; COMMENT: Repeat 10 yrs HYSTERECTOMY partial EYE SURGERY Left IMPLANT CATARACT EXTRACTION INSERT / REPLACE / REMOVE PACEMAKER 11/17/2023 - 11/16/2024 THYROID SURGERY 02/28/2025 Medical History Medical History Date Comments Vitamin D insufficiency 08/17/2019 DX:Vitam in D insufficiency Hyperlipidemia 08/17/2019 DX:Hyperlipidemi a Hypertension 08/17/2019 DX:Hypertension Anxiety 08/17/2019 situational Osteopenia 08/17/2019 DX:Osteopenia Nephrolithiasis 08/17/2019 DX:Nephrolithias is Secondary hyperparathyroidis m ([facility] V24) 08/17/2019 DX:Secondary hyperparathyroi dism ([facility]) Iron deficiency anemia 08/17/2019 hx of ane nahomi Tricuspid regurgitation 08/17/2019 DX:Tricu spid regurgitation History of basal cell carcinoma (BCC) 08/17/2019 DX:History of basal cell carcinoma (BCC); COMMENT: R lower medial eyelid DM (diabetes mellitus), type 2 with renal complications ([facility] V24, [facility] V28) 07/28/2019 DX:DM (diabetes mellitus), t ype 2 with renal complications ([facility]) Neuropathy 08/17/2019 DX:Neuropathy DM (diabetes mellitus), type 2 with neurological complications ([facility] V24, [facility] V28) 08/17/2019 DX:DM (diabetes mellitus), t ype 2 with neurological complications (HCC) DM (diabetes mellitus), type 2 with ophthalmic complications ([facility] V24, [facility] V28) 08/17/2019 DX:DM (diabetes mellitus), t ype 2 with ophthalmic complications (HCC) Diabetic retinopathy ([facility] V24, [facility] V28) 08/17/2019 DX:Diabetic retinopathy ([facility] ); COMMENT: [facility] History of breast cancer 08/17/2019 DX:Hist ory of breast cancer; COMMENT: 2004 Right, s/p: lumpectomy, XRT, & Tamoxifen, Dr Mayer CKD (chronic kidney disease) stage 4, GFR 15-29 ml/min ([facility] V24, [facility] V28) 08/17/2019 DX:CKD (chronic kidney disea se) stage 4, GFR 15-29 ml/min ([facility]); COMMENT: Dr Beckwith GERD (gastroesophageal reflux disease) 08/17/2019 DX:GERD (gastroesophageal reflux disease) occasionally takes tums Diverticulosis 08/17/2019 DX:Diverticulosi s Hypercalcemia 07/28/2019 DX:Hypercalcemia Acquired hypothyroidism 07/28/2019 DX:Acqui red hypothyroidism Severe obesity (BMI 35.0-39. 9) with comorbidity ([facility] V24, [facility] V28) 08/17/2019 DX:Severe obesi ty (BMI 35.0- 39.9) with comorbidity ([facility]); COMMENT: Diabetes, Hypertension, Hyperlipidemia CHF (congestive heart failur e) ([facility] V24, [facility] V28) Pacemaker Arthritis Joint pain Seizures ([facility] V24, [facility] V28) 1 seizure over 20 yrs ago Family History Medical History Relation Name Comments Lung cancer Father Diabetes Relation Name Status Comments Father Social History Tobacco Use Types Packs/Day Years Used Date Smoking Tobacco: Never Smokeless Tobacco: Never Tobacco Cessation:Counseling Given: Not Answered Alcohol Use Standard Drinks/Week Comments No 0 [...] Orientation Straight 02/15/2025 8: 56 AM EDT Obstetrics History Last Filed Vital Signs Vital Sign Reading Time Taken Comments Blood Pressure 124/68 07/06/2025 8:45 AM EDT Pulse 56 07/06/2025 8:45 AM EDT Temperature 36.3 C (97.4 F) 07/06/2025 8:45 AM EDT Respiratory Rate 16 07/06/2025 8:45 AM EDT Oxygen Saturation 99% 07/06/2025 8:45 AM EDT Inhaled Oxygen Concentration - - Weight 105 kg (230 lb 6.4 oz) 07/06/2025 8:45 AM EDT Height 152.4 cm (5') 07/06/2025 8:45 AM EDT Body Mass Index 45 07/06/2025 8:45 AM EDT Plan of Treatment Upcoming Encounters Date Type Department Care Team (Late st Contact Info) Description 08/04/2025 9:00 AM EDT Office Visit [facility] Hematology Oncology [address] [place] [address] Maida-Ghislaine Maya MD [address] [place] [address] 09/07/2025 9:00 AM EDT Appointment [facility] Ultrasound [address] [place] [address] Health Maintenance Due Date Last Done Comments Diabetes: Annual Foot Exam 1960 Diabetes: Annual Retina Eye Exam 1960 Cholesterol Screening (Lipid Panel) 10/26/2022 Diabetes: Annual Urine Albumin-Creatinine Ratio (uACR) 10/26/2022 Diabetes: Blood Sugar Control Test (HGBA1C) 10/26/2022 Hepatitis C Screening 10/26/2022 Medicare Annual Wellness Visit 10/26/2022 Social Influencers of Health Screening 10/26/2022 RSV Immunization Adult Patients (1 - 1-dose 75+ series) 2023 Depression Screening 11/17/2024 COVID-19 Vaccine ( season) 2025 02/20/2021, 01/19/2021, 12/22/2020 Influenza Vaccine (#1) 2025 , 07/08/2023, 10/30/2021, Additional history exists Falls Risk Assessment 02/15/2026 02/15/2025 Diabetes: Annual GFR (Glomerular Filtration Rate) 07/20/2026 07/20/2025, 07/20/2025, 01/18/2025, Additional history exists Hypertension/CHF/CAD Annual BMP Blood Test 07/20/2026 07/20/2025, 07/20/2025, 01/18/2025, Additional history exists Osteoporosis Screening (Bone Density Screening) 07/17/2033 07/17/2023, 07/30/2019 DTaP,Tdap,and Td Vaccines (4 - Td or Tdap) 08/16/2034 08/16/2024, 11/23/2013, 11/23/2013 Breast Cancer Screening Discontinued 04/17/2022, 04/13 Pneumococcal Vaccine: 50+ Years Completed 08/16/2024, 02/13/2015, 12/19/2006 Zoster Vaccines Completed 12/25/2024, 07/20, 12/08/2014 HIB Vaccines Aged Out No longer eligi ble based on patient's age to complete this topic HPV Vaccines Aged Out No longer eligi ble based on patient's age to complete this topic Hepatitis A Vaccines Aged Out No long er eligible based on patient's age to complete this topic Hepatitis B Vaccines Aged Out No long er eligible based on patient's age to complete this topic IPV Vaccines Aged Out No longer eligi ble based on patient's age to complete this topic MMR Vaccines Aged Out No longer eligi ble based on patient's age to complete this topic Meningococcal ACWY Vaccine Aged Out N o longer eligible based on patient's age to complete this topic Meningococcal B Vaccine Aged Out No l onger eligible based on patient's age to complete this topic RSV Immunization Patients Under 20 months Aged Out No longer eligible based on patient's age to complete this topic Varicella Vaccines Aged Out No longer eligible based on patient's age to complete this topic Medical Devices Implanted Type Area Electronic Installer Device Identifier Shelf Expiration Date Model / Serial / Lot Cardiac Pacemaker Cardiac Pacemaker Left: Heart Hemostat Flour Collgn 1gm Vincent Hunter - [id number] Implanted:Qty: 1 on 02/15/2025 by Erick Andrews MD at [facility] Hemostasis Right: Thyroid CR BARD - DAVOL DIV 11/13/2027 [id number] / NA / [id number] Procedures Procedure Name Priority Date/Time Associated Diagnosis Comments DXA BONE DENSITY STUDY 1+ SITS AXIAL SKEL Routine 07/17/2023 9:17 AM EDT Hyperparathyroidism, unspecified ([facility] V24) PARVEZ SCREENING DIGITAL Routine 04/17/2022 4:02 PM EDT Encounter for screening mammogram for malignant neoplasm of breast from Last 3 Months or Most Recently Relevant to Health Maintenance Results * DXA BONE DENSITY STUDY 1+ SITS AXIAL SKEL (07/17/2023 9:17 AM EDT) Anatomical Region Laterality Modality Bone Densitometr y 06/03/2023 9:18 AM EDT Narrative 07/17/2023 6:31 PM EDT BONE DENSITY SCAN (DEXA): FINDINGS: Lumbar Spine T-score is -0.9. (SD relative to 20-29 y/o adult) Z-score is 1.5. (SD relative to age matched peers) This is considered normal by WHO criteria. Left Hip T-score is -1.3. Z-score is 0.7. This is considered osteopenia by WHO criteria. Comparison exam(s): 07/30/2019. Unable to assess change in bone mineral density due to dissimilar scan methods. IMPRESSION: IMPRESSION: Osteopenia by WHO criteria. This patient has a 9.2% risk of major osteoporotic fracture and a 1.5% risk of hip fracture over the next 10 years. (World Health Organization Fracture Risk Assessment) The [facility] Department of Internal Medicine recommends using National Osteoporosis Foundation (NOF) guidelines in treatment decisions related to osteoporosis. NOF guidelines suggest considering treatment for postmenopausal women and men aged 50 or older presenting with the following: History of hip or vertebral fracture. T-score = -2.5 (DXA) at the femoral neck, total hip, or spine, after appropriate evaluation to exclude secondary causes. Low bone mass (T-score between -1.0 and -2.5 at the femoral neck or spine) AND a 10-year probability of a hip fracture = 3% OR a 10-year probability of a major osteoporosis-related fracture = 20% based on the [place]-adapted WHO algorithm Please note that all treatment decisions require clinical judgment and consideration of individual patient factors, including patient preferences, co-morbidities, previous drug use, risk factors not captured in the FRAX model (e.g., frailty, falls, vitamin D deficiency, increased bone turnover, interval significant decline in bone density) and possible under- or over-estimation of fracture risk by FRAX. Optional alternative screening schedule based on roldan Elizabeth., [facility] December 05, 2011 for patients with osteopenia (based on hip BMD T-score) is as follows: * advanced osteopenia (T scores -2.00 to -2.49), BMD testing every year * moderate osteopenia (T scores -1.50 to -1.99), BMD testing every 5 years mild osteopenia or normal BMD (T scores -1.50 and higher), BMD testing every 15 years Procedure Note Marilin Cruz MD - 12/23/2023 BONE DENSITY SCAN (DEXA): FINDINGS: Lumbar Spine T-score is -0.9. (SD relative to 20-29 y/o adult) Z-score is 1.5. (SD relative to age matched peers) This is considered normal by WHO criteria. Left Hip T-score is -1.3. Z-score is 0.7. This is considered osteopenia by WHO criteria. Comparison exam(s): 07/30/2019. Unable to assess change in bone mineraldensity due to dissimilar scan methods. IMPRESSION: IMPRESSION: Osteopenia by WHO criteria. This patient has a 9.2% risk of majorosteoporotic fracture and a 1.5% risk of hip fracture over the next 10 years. (World HealthOrganization Fracture Risk Assessment) The [facility] Department of Internal Medicine recommendsusing National Osteoporosis Foundation (NOF) guidelines in treatment decisions related toosteoporosis. NOF guidelines suggest considering treatment for postmenopausal women and menaged 50 or older presenting with the following: History of hip or vertebral fracture. T-score = -2.5 (DXA) at the femoral neck, total hip, or spine, afterappropriate evaluation to exclude secondary causes. Low bone mass (T-score between -1.0 and -2.5 at the femoral neck or spine)AND a 10-year probability of a hip fracture = 3% OR a 10-year probability of a majorosteoporosis-related fracture = 20% based on the [place]-adapted WHO algorithm Please note that all treatment decisions require clinical judgment andconsideration of individual patient factors, including patient preferences, co- morbidities,previous drug use, risk factors not captured in the FRAX model (e.g., frailty, falls, vitaminD deficiency, increased bone turnover, interval significant decline in bone density) andpossible under- or over-estimation of fracture risk by FRAX. Optional alternative screening schedule based on roldan Elizabeth., NEJMJanuary 2011 for patients with osteopenia (based on hip BMD T-score) is as follows: * advanced osteopenia (T scores -2.00 to -2.49), BMD testing every year * moderate osteopenia (T scores -1.50 to -1.99), BMD testing every 5years mild osteopenia or normal BMD (T scores -1.50 and higher), BMD testingevery 15 years Michelle MADRIGAL [facility] DXA PROCEDURES Final Re sult * PARVEZ SCREENING DIGITAL (04/17/2022 4:02 PM EDT) Anatomical Region Laterality Modality Mammography 04/17/2022 1:29 PM EDT Narrative 04/17/2022 4:02 PM EDT [facility] Diagnostic Imaging Department [address] [place] [id number] Patient: FARA ARCHIBALD /Age/Sex: 1950 - 71 - F Unit#: [id number] Location/Status: SPDIMAM/REG CLI Mnemonic/Ordering Site: [facility] Ordering Physician: ARANZA DURON MD [facility] Screening Digital - 04/17/22 - 1403 EXAM: Parvez Screening Digital EXAM DATE AND TIME: 04/17/2022 2:04 PM HISTORY: Screening. Personal history of right breast carcinoma treated with lumpectomy and radiation therapy in 2003. Previous bilateral breast biopsies, pathology benign. Sister had breast carcinoma. COMPARISON: 04/13/21, 02/01/20, 11/21/16, 10/10/15 TECHNIQUE: CC and MLO views of both breasts were obtained using full field digital mammography. Bilateral digital breast tomosynthesis was performed in the MLO projection. Computer aided detection with the VersionOne 7.2-H was employed. TISSUE DENSITY: b. There are scattered areas of fibroglandular density. FINDINGS: Focal asymmetry with a coarse, dystrophic calcification and thickening and retraction of the overlying skin is again seen in the upper inner right breast, posterior depth, unchanged, consistent with the lumpectomy scar. Multiple biopsy markers are again seen bilaterally. No suspicious masses or grouped microcalcifications are seen. Skin and vascular calcifications are present. IMPRESSION: Stable mammographic appearance of the breasts, including lumpectomy changes on the right. No evidence of malignancy is seen. A negative mammogram in the presence of a clinically suspicious palpable abnormality does not preclude the possibility of malignancy or alter the indications for biopsy. BI-RADS: Category 2: Benign RECOMMENDATION(S): 1: Routine screening mammogram BILATERAL in 1 year. [id number], [id number], [id number] Dictating Physician: SARAH CASTANEDA MD Electronically Signed by: SARAH CASTANEDA MD Dic Date/Time: 04/17/22 1600 Sign date/Time: 04/17/22 1602 Procedure Note Sarah Castaneda MD - 11/06/2022 [facility] Diagnostic Imaging Department [address] [place] [address], [place] [address] Patient: FARA ARCHIBALD Tad /Age/Sex: 1950 - 71 - F Unit#: [id number] Location/Status: SPDIMA/REG CLI Mnemonic/Ordering Site: [facility] Ordering Physician: ARANZA DURON MD Parvez Screening Digital - 04/17/22 - 1403 EXAM: Parvez Screening Digital EXAM DATE AND TIME: 04/17/2022 2:04 PM HISTORY: Screening. Personal history of right breast carcinoma treatedwith lumpectomy and radiation therapy in 2003. Previous bilateral breastbiopsies, pathology benign. Sister had breast carcinoma. COMPARISON: 04/13/21, 02/01/20, 11/21/16, 10/10/15 TECHNIQUE: CC and MLO views of both breasts were obtained using fullfield digital mammography. Bilateral digital breast tomosynthesis was performedin the MLO projection. Computer aided detection with the VersionOne 7.2-Bubblyas employed. TISSUE DENSITY: b. There are scattered areas of fibroglandular density. FINDINGS: Focal asymmetry with a coarse, dystrophic calcification and thickeningand retraction of the overlying skin is again seen in the upper inner rightbreast, posterior depth, unchanged, consistent with the lumpectomy scar. Multiple biopsy markers are again seen bilaterally. No suspicious massesor grouped microcalcifications are seen. Skin and vascular calcificationsare present. IMPRESSION: Stable mammographic appearance of the breasts, including lumpectomychanges on the right. No evidence of malignancy is seen. A negative mammogram in the presence of a clinically suspicious palpable abnormality does not preclude the possibility of malignancy or alter the indications for biopsy. BI-RADS: Category 2: Benign RECOMMENDATION(S): 1: Routine screening mammogram BILATERAL in 1 year. [id number], [id number] 3342F, 7025F Dictating Physician: SARAH CASTANEDA MD Electronically Signed by: SARAH CASTANEDA MD Dic Date/Time: 04/17/22 1600 Sign date/Time: 04/17/22 1602 Aranza Duron MD IMG BI PROCEDURES Final Resul t from Last 3 Months or Most Recently Relevant to Health Maintenance Insurance [employer] MEDICARE [place]ICA[place] - [place] Advance Directives * Full Code - Default (Latest Code Status on File) Date Activated Date Inactivated Comments 02/15/2025 3:45 PM 02/15/2025 7:14 PM This is order is used when code status has not been discussed with the patient, or code status is otherwise unknown/unconfirmed To update the patient's code status, place a code status order. Do not modify or discontinue any currently active code status orders. Care Teams Nurse Paralegal Relationship Specialty Start Date End Date Aranza Duron MD [address] [place] [address] [place] [address] PCP - General 06/18/23
== END ==
LOC: HO.CARD 13:10
PROVIDERS: PCP Internal Medicine; Visit Provider Internal Medicine Cardiovascular Disease
DX: I50.30 Unspecified diastolic (congestive) heart failure (principal)
CPT/HCPCS: 93306

== ENCOUNTER → 2025-08-03 13:13 | Outpatient (BNV) | payer OTHER, SELFPAY | PROVIDERS: PCP Internal Medicine; Visit Provider Internal Medicine | DX: I27.20 Pulmonary hypertension, unspecified (principal); I50.30 Unspecified diastolic (congestive) heart failure; I42.2 Other hypertrophic cardiomyopathy; I36.1 Nonrheumatic tricuspid (valve) insufficiency | CPT/HCPCS: 93306 ==

== ENCOUNTER → 2025-11-02 15:12 | Outpatient (BNV) | payer OTHER, SELFPAY | PROVIDERS: PCP Internal Medicine; Visit Provider Internal Medicine Cardiovascular Disease | DX: Z45.018 Encounter for adjustment and management of other part of cardiac pacemaker (principal) | CPT/HCPCS: 93294 ==